=== PATIENT | male | born 1955 | race Caucasian/White ===

== ENCOUNTER → 2017-08-04 | Outpatient (CLI) | payer BC ==
--- NOTE | 2017-08-04 08:18 | US ---
EXAMINATION TYPE: US duplex aorta DATE OF EXAM: 08/04/2017 COMPARISON: NONE CLINICAL HISTORY: Z13.6 screening for cardiovascular. Screening EXAM MEASUREMENTS: Abdominal Aorta: Proximal: 1.5 x 2.0cm Mid: 1.6 x 1.5cm Distal: 1.5 x 1.6cm Bifurcation: RT: 1.0 x 1.2cm LT: 1.1 x 0.9cm No evidence of AAA at this time. Calcifications noted throughout IMPRESSION: Mild calcific atheromatous plaquing of the abdominal aorta without sonographic evidence o f abdominal aortic aneurysm.
== END | disposition home or self-care (01) ==
LOC: RADUSWWP 06:48
PROVIDERS: ATTEND Internal Medicine
DX: Z13.6 Encounter for screening for cardiovascular disorders (principal); I70.0 Atherosclerosis of aorta
CPT/HCPCS: 93979

== ENCOUNTER → 2020-08-09 | Outpatient (CLI) | payer MEDICARE ==
--- NOTE | 2020-08-09 10:53 | US ---
EXAMINATION TYPE: US venous doppler duplex LE RT DATE OF EXAM: 08/09/2020 10:35 AM COMPARISON: NONE CLINICAL HISTORY: M79.604 Pain in right leg. Right leg pain. No redness. No swelling. SIDE PERFORMED: Right TECHNIQUE: The lower extremity deep venous system is examined utilizing real time linear array sonog hamida with graded compression, doppler sonography and color-flow sonography. VESSELS IMAGED: Common Femoral Vein Deep Femoral Vein Greater Saphenous Vein * Femoral Vein Popliteal Vein Small Saphenous Vein * Proximal Calf Veins (* superficial vessels) Right Leg: Negative for DVT IMPRESSION: No evidence for DVT at this time.
== END | disposition home or self-care (01) ==
LOC: RADUSWWP 10:12
PROVIDERS: ATTEND Family Medicine
DX: M79.604 Pain in right leg (principal)

== ENCOUNTER → 2020-08-15 | Outpatient (CLI) | payer MEDICARE ==
--- NOTE | 2020-08-21 10:16 | P.ARTDOP ---
Arterial Doppler LOWER EXTREMITY ARTERIAL DOPPLER: DATE OF SERVICE: 08/15/2020 Reason for study: Recent onset right leg pain. Doppler waveforms: Atypical at the right femoral and monophasic below. Multiphasic throughout on the left with good toe waveforms.. Pulse volume recording: []. Pressure gradients: Above the thigh on the right. Ankle-brachial indices: 0.22 on the right and 0.98 on the left. Toe brachial indices: [] on the right, 0.71 on the left Impression: Severe right femoral popliteal disease with probable iliac component. The left is normal. Recommend vascular specialty consultation.
== END | disposition home or self-care (01) ==
LOC: RADUSWWP 13:19
PROVIDERS: ATTEND Family Medicine
DX: M79.604 Pain in right leg (principal)
CPT/HCPCS: 93923

== ENCOUNTER → 2020-08-22 | Outpatient (CLI) | payer MEDICARE ==
[2020-08-22 15:18] LABS: Basophils # (A) 0.1 k/uL (0-0.2); Basophils % (A) 1 %; Eosinophils # (A) 0.3 k/uL (0-0.7); Eosinophils % (A) 3 %; HCT 49.2 % (39.0-53.0); HGB 15.8 gm/dL (13.0-17.5); Lymphocytes # (A) 3.3 k/uL (1.0-4.8); Lymphocytes % (A) 30 %; MCH 27.1 pg (25.0-35.0); MCHC 32.2 g/dL (31.0-37.0); MCV 84.1 fL (80.0-100.0); Monocytes # (A) 0.6 k/uL (0-1.0); Monocytes % (A) 6 %; Neutrophils # (A) 6.6 k/uL (1.3-7.7); Neutrophils % (A) 60 %; Platelet Count 226 k/uL (150-450); RBC 5.85 m/uL (4.30-5.90); RDW 13.5 % (11.5-15.5); WBC 11.1 k/uL (3.8-10.6)
[2020-08-22 15:27] LABS: Potassium 5.2 mmol/L (3.5-5.1)
== END | disposition home or self-care (01) ==
LOC: LABPAT 13:48
PROVIDERS: ATTEND Surgery
DX: Z01.812 Encounter for preprocedural laboratory examination (principal); I73.9 Peripheral vascular disease, unspecified
CPT/HCPCS: 36415; 80051; 82565; 84520; 85025

== ENCOUNTER 2021-01-28 06:26 | Day surgery (SDC) | payer MEDICARE ==
[2021-01-24 15:02] VITALS: BMI 26.5
[~2021-01-28 06:26] MED LIST: SODIUM CHLORIDE 0.9% 1,000 ML in EMPTY BAG 1 BAG IV ONE
[2021-01-28] MEDS ORDERED: SODIUM CHLORIDE 0.9% 1,000 ML IV ONE (06:39)
[2021-01-28 06:48] VITALS: TEMP 98.7
[2021-01-28 06:53] LABS: Glucose,Whole Blood 105 mg/dL (75-99)
[2021-01-28 07:16] LABS: Basophils # (A) 0.1 k/uL (0-0.2); Basophils % (A) 1 %; Eosinophils % (A) 0 %; HCT 43.1 % (39.0-53.0); HGB 14.1 gm/dL (13.0-17.5); Lymphocytes # (A) 4.1 k/uL (1.0-4.8); Lymphocytes % (A) 31 %; MCH 26.6 pg (25.0-35.0); MCHC 32.6 g/dL (31.0-37.0); MCV 81.7 fL (80.0-100.0); Mean Platelet Volume 8.3; Monocytes # (A) 0.8 k/uL (0-1.0); Monocytes % (A) 6 %; Neutrophils % (A) 60 %; Platelet Count 223 k/uL (150-450); RBC 5.28 m/uL (4.30-5.90); RDW 14.7 % (11.5-15.5); WBC 13.2 k/uL (3.8-10.6)
[2021-01-28 07:33] LABS: Calcium 9.7 mg/dL (8.4-10.2); Potassium 4.7 mmol/L (3.5-5.1)
[2021-01-28] MEDS ORDERED: LIDOCAINE 1% INJ 10MG/ML (20 ML MDV) SQ ONE (07:58)
[2021-01-28] MEDS ORDERED: fentaNYL (PF) 50 MCG/ML 2 ML AMP ONE (07:58)
[2021-01-28] MEDS ORDERED: MIDAZOLAM 2 MG/2 ML VIAL IV ONE (08:01)
[2021-01-28] MEDS ORDERED: fentaNYL (PF) 50 MCG/ML 2 ML AMP IV ONE (08:01)
[2021-01-28] MEDS ORDERED: HEPARIN SODIUM 1,000 UN/ML (10ML VL) ONE (08:25)
[2021-01-28] MEDS ORDERED: HEPARIN SODIUM 1,000 UN/ML (10ML VL) IV ONE (08:27)
[2021-01-28] MEDS ORDERED: IOPAMIDOL-250 100ML BTL INTRAARTER ONE ×3 (09:03→09:05)
[2021-01-28] MEDS ORDERED: CLOPIDOGREL 75 MG TAB ONE (09:12)
[2021-01-28] MEDS ORDERED: CLOPIDOGREL 75 MG TAB PO ONE (09:15)
--- NOTE | 2021-01-28 09:48 | P.OP ---
Description of Procedure: Preoperative diagnosis: Critical limb ischemia right lower extremity, Hanson classification 5 Postop diagnosis: Critical limb ischemia right lower extremity, Hanson classification 5, right SFA occlusion, right tibioperoneal trunk occlusion with two-vessel runoff to the ankle Procedure: Aortogram with right lower extremity selective angiogram 3rd order via left common femoral artery ultrasound-guided access. Percutaneous transluminal balloon angioplasty of the right superficial femoral artery. Percutaneous stenting of the right superficial femoral artery 2 with a 6 x 140 mm Zilver PTX Surgeon: Tamar Anesthesia: Moderate sedation times 78 minutes Estimated blood loss: 5 mL Complications: None Condition: Stable Findings: Right common iliac artery stents are widely patent without any significant stenosis. Right femoral endarterectomy site is patent as well as the profundus femoris artery. There is greater than 90% stenosis of the takeoff of the SFA with occlusion noted just after with reconstitution of the above-knee popliteal artery. The right tibioperoneal trunk is also occluded with reconstitution of the peroneal and anterior tibial artery. Posterior tibial artery is occluded on the right. Operative narrative: After written informed consent was obtained the patient all risks benefits competitions were described the patient is brought to the [facility] and laid in a supine position. The area of the left groin was prepped and draped in the usual sterile fashion. Local anesthesia with moderate sedation was performed with continuous pulse ox monitoring and EKG monitoring. Utilizing ultrasound the left common femoral artery was visualized and shown to be patent without any significant plaque. Utilizing a multipurpose needle under ultrasound guidance the artery was accessed. Guidewire was placed followed by 5F sheath. 035 Glidewire was then placed into the aorta followed by a RBI cristian ter and the right common iliac artery was accessed. Selective angiogram was then obtained of the right lower extremity demonstrating occlusion of the SFA just after the takeoff. 035 Glidewire was then placed into the superficial femoral artery across the lesion followed by an angled glide catheter. Once across the lesion selective angiogram of the distal popliteal demonstrated good intraluminal access. Selective angiogram below the knee demonstrates occlusion of the tibioperoneal trunk as well as two-vessel runoff to the ankle with slow flow to the toes. Patient was then administered heparin and both 35 Glidewire advantage was placed through the angled glide catheter and the sheath was upsized to a 6-Afghan RAABE sheath placed above the common femoral on the right. Balloon angioplasty was then performed of the right superficial femoral artery with a ever-cross 5 x 150mm. Into gram was then obtained demonstrating some dissection within the previous occlusion and therefore a silver PTX stent 2 was placed across the lesion. Two 6 x 140 mm Zilver PTX were then placed across the lesion in the SFA. In-stent balloon angioplasty was then performed with the 5 x 150mm balloon. All guidewires and catheters were then removed and a 7-Afghan sheath was replaced with a short 7-Afghan sheath and vascular closure was placed with Vascade closure device. The patient all procedure well and was sent to PACU for recovery. Disposition: Patient does have an occlusion of the tibioperoneal trunk with reconstitution below the knee with two-vessel runoff to the ankle. This should help with his pain and healing. If this does not then he would require a femoral to below knee tibial artery bypass. He will follow-up in 2 weeks.
--- NOTE | 2021-01-28 11:19 | IR ---
Fluoroscopy HISTORY: Peripheral vascular occlusive disease 14.1 minutes fluoroscopy time supplied to the referring clinician. 582 intraoperative C-arm images d ocument the procedure. See dictated report from vascular surgery.
[2021-01-28 14:06] VITALS: BP 165/75; PULSE 98; RESP 18
== END 2021-01-28 14:11 | disposition home or self-care (01) ==
LOC: CATHCVL 06:26
PROVIDERS: ATTEND Surgery
DX: I70.229 Atherosclerosis of native arteries of extremities with rest pain, unspecified extremity (principal); Z20.822 Contact with and (suspected) exposure to COVID-19
CPT/HCPCS: 37226; 75710; 80048; 85025; 87635; C1894 ×3; C1769 ×4; C1725; C1874; C1760; J2250; J2001; J3010; J1644; Q9966

== ENCOUNTER → 2022-08-06 | Outpatient (CLI) | payer MEDICARE ==
--- NOTE | 2022-08-07 09:23 | CT ---
EXAMINATION TYPE: CT angio abd aorta w/Runoff DATE OF EXAM: 08/06/2022 5:30 PM COMPARISON: 05/30/2010 HISTORY: Pain bilateral legs, more pain left leg CT DLP: 2277.0 mGycm Automated exposure control for dose reduction was used. TECHNIQUE: Performed with IV Contrast, patient injected with 80 cc mL of Isovue 370. . FINDINGS: Lungs: Lung bases are clear. Degree of underlying COPD suspected. ABDOMEN: Postcholecystectomy clips are seen. Thickening of the gastric wall which likely relate to in complete distention correlate clinically. Adrenal glands of normal morphology. There are bilateral re nal lesions majority appear to represent simple cysts however there is a 2.5 cm right renal lesion wh ich measures 30 Hounsfield units and additional workup including MRI recommended. Spleen homogeneous. Pancreas normal. Bowel gas pattern nonspecific with no obstruction. Appendix norm al. Diverticulosis of the colon. Bladder normal. Prostate prominent with calcifications correlate wit h PSA. There is hypertrophic and degenerative changes spine. Retrolisthesis of L3 relative to L4 with multilevel facet arthropathy. Bilateral arthropathy noted VASCULATURE: The abdominal aorta is of normal caliber with mild/moderate diffuse atherosclerotic calle ges including atherosclerotic changes at the origins of the celiac axis, SMA and bilateral renal mohamud carri. Suspect right-sided renal artery stenosis near its origin. Right lower extremity: common iliac demonstrates mild diffuse atherosclerotic change. Right iliac artery stent appears to be patent. There is approximate 50% stenosis just proximal to the origin of the stent. Common femoral artery is somewhat diminutive but patent. There appears to be a stent originating near the origin of the common femoral artery extending throughout the superficial femoral artery to the l evel of the adductor canal. Artery is diminutive beyond this level with limited enhancement. There ap pears to be an occlusion of the popliteal artery. Segments of the trifurcation vessels are seen dista lly to be opacified but are markedly diminutive. Left lower extremity: Left common iliac artery there is mild to moderate diffuse disease with a more focal greater than 70% stenosis of the distal margin of the left external iliac artery best seen on image 155. There is dim inutive caliber to the common femoral and deep femoral arteries which appear to be patent. There is a critical (severe stenosis at the origin of the common femoral artery axial image 193. Greater than 5 0% stenosis of the deep femoral artery proximally. SFAs diminutive in size demonstrates multifocal mi ld to moderate atherosclerotic plaque with a more significant stenosis proximally. There is diminutiv e popliteal artery appears to be patent. Assessment trifurcation vasculature is limited due to phase of imaging and lack of significant enhancement IMPRESSION: 1. Right iliac and femoral stents are patent. No significant stenosis. 2. Severe stenosis distal left external iliac artery and proximal left common femoral artery as discu ssed above estimated to be greater than 80%. 3. Limited assessment of the popliteal artery and trifurcation vasculature due to limited\suboptimal enhancement. 4. Suspect right-sided renal artery stenosis measuring greater than 70%. 5. Multifocal left SFA's disease with at least two areas of suspected 50-70% stenosis. 6. indeterminate right sided renal lesion recommend MRI of the kidney.
== END | disposition home or self-care (01) ==
LOC: RADCTMAIN 13:47
PROVIDERS: ATTEND Surgery
DX: I70.213 Atherosclerosis of native arteries of extremities with intermittent claudication, bilateral legs (principal)
CPT/HCPCS: 82565; 84520; 75635; 36415; Q9967

== ENCOUNTER → 2022-09-19 | Outpatient (CLI) | payer MEDICARE ==
--- NOTE | 2022-09-20 10:05 | MR ---
EXAMINATION TYPE: MR kidney wo/w con DATE OF EXAM: 09/19/2022 COMPARISON: CT scan 08/06/2022 HISTORY: Kidney disorder CONTRAST: Standard multiplanar, multisequence MRI departmental protocol images were obtained without contrast a nd with 9 mL intravenous Gadavist gadolinium contrast. FINDINGS: The right kidney measures 11.5 cm in craniocaudal dimension while the left kidney measures 11.6 cm. T here are multiple right-sided simple appearing renal cysts noted. The largest is seen within the mid pole measuring 3.5 cm second 2 cm simple cyst lower pole right kidney. There are additional subcentim eter cysts noted. Solid renal mass is not evident. The left kidney also demonstrates multiple cysts i n the mid pole there is a 3.9 cm cyst. 2 adjacent cysts are noted within the mid to upper pole measur ing 2.2 and 1.8 cm respectively. No solid left renal mass is detected. I do not see evidence for hydr onephrosis. No evidence for nephrolithiasis. There is mild hepatomegaly and hepatic steatosis. No obvious hepatic lesion is present. The gallbladd er is surgically absent. Pancreas spleen and adrenal glands are grossly unremarkable. Thoracic aorta is nonaneurysmal and demonstrates atheromatous change. IMPRESSION: Simple renal cysts noted bilaterally without suspicious lesion or solid mass.
== END | disposition home or self-care (01) ==
LOC: RADMRIMAIN 11:41
PROVIDERS: ATTEND Family Medicine
DX: N28.1 Cyst of kidney, acquired (principal)
CPT/HCPCS: 74183; A9585

== ENCOUNTER 2022-10-13 16:57 | Emergency (ER) | payer MEDICARE ==
[2022-10-13 17:13] VITALS: TEMP 99.4
--- NOTE | 2022-10-13 17:47 | ED ---
General Adult HPI - General Chief complaint: Recheck/Abnormal Lab/Rx Stated complaint: cough Time Seen by Provider: 10/13/22 17:21 Source: patient, family, RN notes reviewed Mode of arrival: ambulatory Limitations: no limitations - History of Present Illness Initial comments: Patient is a pleasant 67year-old male presenting to the emergency department w ith concern with cough. Onset of symptoms was a month ago, worse the past week. Patient occasionally has some streaks of blood with his cough. Patient denies dyspnea. Patient does have some fatigue with exertion. Patient is having some leg swelling. No calf pain. No history of similar symptoms previously. Patient did have blood work recently showing some anemia. - Related Data Home Medications Medication Instructions Recorded Confirmed Aspirin 81 mg PO DAILY 01/24/21 01/28/21 Cholecalciferol [Vitamin D3 (25 100 mcg PO DAILY 01/24/21 01/28/21 Mcg = 1000 Iu)] Insulin Glargine [Lantus Vial] 24 unit SQ QAM 01/24/21 01/28/21 Liraglutide [Victoza 3-Matt] 1.8 mg SQ QAM 01/24/21 01/28/21 Losartan [Cozaar] 25 mg PO DAILY 01/24/21 01/28/21 Metoprolol Tartrate 25 mg PO HS 01/24/21 01/28/21 Nitroglycerin 0.4 mg SUBLINGUAL Q5M PRN 01/24/21 01/24/21 Omeprazole 20 mg PO BID 01/24/21 01/28/21 Pravastatin Sodium [Pravachol] 40 mg PO HS 01/24/21 01/28/21 Umeclidinium Henderson [Incruse 62.5 mcg INHALATION DAILY 01/24/21 01/28/21 Ellipta] Vit C/E/Zn/Coppr/Lutein/Zeaxan 1 each PO HS 01/24/21 01/28/21 [Preservision Areds 2 Softgel] metFORMIN HCL 1,000 mg PO BID 01/24/21 01/28/21 Clopidogrel [Plavix] 75 mg PO DAILY 01/28/21 01/28/21 Previous Rx's Medication Instructions Recorded Azithromycin [Zithromax Z Pack] 250 mg PO DAILY #6 tab 10/13/22 Magnesium Oxide [Magnesium] 500 mg PO BID #14 cap 10/13/22 Allergies Allergy/AdvReac Type Severity Reaction Status Date / Time No Known Allergies Allergy Verified 10/13/22 17:13 Review of Systems ROS Statement: Those systems with pertinent positive or pertinent negative responses have been documented in the HPI. ROS Other: All systems not noted in ROS Statement are negative. Constitutional: Denies: fever ENT: Denies: ear pain Respiratory: Reports: as per HPI, cough, hemoptysis Cardiovascular: Reports: edema. Denies: chest pain Endocrine: Denies: fatigue Gastrointestinal: Denies: abdominal pain Genitourinary: Denies: dysuria Musculoskeletal: Denies: back pain Skin: Denies: rash Neurological: Denies: weakness Past Medical History Past Medical History: Diabetes Mellitus, GERD/Reflux, Hyperlipidemia, Hypertension, Osteoarthritis (OA), Vascular Disorder Additional Past Medical History / Comment(s): "Back of heart , no treatment needed right now." "Having trouble with walking long distances right now, will u se wheelchair if too far." History of Any Multi-Drug Resistant Organisms: None Reported Past Surgical History: Cholecystectomy Additional Past Surgical History / Comment(s): Procedures on right leg for vascular disorder, 2 stents placed, bilateral cataracts removed. Past Anesthesia/Blood Transfusion Reactions: No Reported Reaction Past Psychological History: No Psychological Hx Reported Smoking Status: Former smoker Past Alcohol Use History: None Reported Past Drug Use History: None Reported - Past Family History Mother Family Medical History: Cancer Additional Family Medical History / Comment(s): Breast cancer. Father Family Medical History: Cancer Additional Family Medical History / Comment(s): Prostate cancer. General Exam Limitations: no limitations General appearance: alert, in no apparent distress Head exam: Present: normocephalic Eye exam: Present: normal appearance ENT exam: Present: normal oropharynx Neck exam: Present: normal inspection Respiratory exam: Present: rhonchi Cardiovascular Exam: Present: tachycardia, normal heart sounds GI/Abdominal exam: Present: soft. Absent: tenderness Extremities exam: Present: pedal edema (+1 bilateral). Absent: calf tenderness Neurological exam: Present: alert Psychiatric exam: Present: normal affect, normal mood Skin exam: Present: normal color Course Vital Signs 10/13/22 17:07 Temperature 99.4 F Pulse Rate 109 H Respiratory 18 Rate Blood Pressure 126/70 O2 Sat by Pulse 98 Oximetry EKG Findings - EKG Results: EKG: interpreted by ERMD (Right bundle-branch block), sinus rhythm, normal axis, normal ST/T EKG shows: tachycardia Medical Decision Making - Medical Decision Making Was pt. sent in by a medical professional or institution (SUZY Uribe, DIRECTOR OF VITAL STATISTICS, urgent care, hospital, or group home...) When possible be specific @ -[No] Did you speak to anyone other than the patient for history (EMS, parent, family, police, friend...)? What history was obtained from this source @ - is present and helps provide history including concerns with chest x- ray Did you review nursing and triage notes (agree or disagree)? Why? @ -[I reviewed and agree with nursing and triage notes] Were old charts reviewed (outside hosp., previous admission, EMS record, old EKG, old radiological studies, urgent care reports/EKG's, group home records)? Report findings @ -Reviewed chest x-ray with left upper lobe opacity from outpatient facility Differential Diagnosis (chest pain, altered mental status, abdominal pain women, abdominal pain men, vaginal bleeding, weakness, fever, dyspnea, syncope, headache, dizziness, GI bleed, back pain, seizure, CVA, palpatations, mental health, musculoskeletal)? @ -Differential Dyspnea: Coronary syndrome, arrhythmia, tamponade, asthma, COPD, pulmonary embolism, pneumonia, pneumothorax, pulmonary effusion, anaphylaxis, diabetic ketoacidosis, flailed chest, pulmonary contusion, diaphragmatic rupture, anemia, neuromuscular, this is not meant to be an all-inclusive list. EKG interpreted by me (3pts min.). @ -[As above] X-rays interpreted by me (1pt min.). @ -[None done] CT interpreted by me (1pt min.). @ -Computed tomography scan shows left upper lobe opacity U/S interpreted by me (1pt. min.). @ -[None done] What testing was considered but not performed or refused? (CT, X-rays, U/S, labs)? Why? @ -[None] What meds were considered but not given or refused? Why? @ -Patient advised further medication including magnesium and antibiotics however refuses Did you discuss the management of the patient with other professionals (professionals i.e. SUZY Uribe, DIRECTOR OF VITAL STATISTICS, lab, RT, psych nurse, social sciences department chair, web development instructor, teacher, water resources technical officer, disability case manager)? Give summary @ -[No] Was smoking cessation discussed for >3mins.? @ -[No] Was critical care preformed (if so, how long)? @ -[No] Were there social determinants of health that impacted care today? How? (Homelessness, low income, unemployed, alcoholism, drug addiction, transportation, low edu. Level, literacy, decrease access to med. care, snf, rehab)? @ -[No] Was there de-escalation of care discussed even if they declined (Discuss DNR or withdrawal of care, Hospice)? DNR status @ -Patient refuses admission. What co-morbidities impacted this encounter? (DM, HTN, Smoking, COPD, CAD, Cancer, CVA, ARF, Chemo, Hep., AIDS, mental health diagnosis, sleep apnea, morbid obesity)? @ -[None] Was patient admitted / discharged? Hospital course, mention meds given and route, prescriptions, significant lab abnormalities, going to OR and other pertinent info. @ -Patient recommended admission secondary to large and persistent pneumonia as well as significant hypomagnesemia. Patient is made aware of risks involved with going home with these diagnoses however still refuses admission. Patient does demonstrate medical decision making. Family is present. Patient will leave AGAINST MEDICAL ADVICE. Patient will still be prescribed antibiotics and magnesium Undiagnosed new problem with uncertain prognosis? @ -[No] Drug Therapy requiring intensive monitoring for toxicity (Heparin, Nitro, Insulin, Cardizem)? @ -[No] Were any procedures done? @ -[No] Diagnosis/symptom? @ -Monier, hypomagnesemia Acute, or Chronic, or Acute on Chronic? @ -Acute, acute Uncomplicated (without systemic symptoms) or Complicated (systemic symptoms)? @ -[default] Side effects of treatment? @ -[No] Exacerbation, Progression, or Severe Exacerbation? @ -[No] Poses a threat to life or bodily function? How? (Chest pain, USA, PR, pneumonia, PE, COPD, DKA, ARF, appy, cholecystitis, CVA, Diverticulitis, Homicidal, Suicidal, threat to staff... and all critical care pts) @ -[No] - Lab Data Result diagrams: 10/13/22 18:07 10/13/22 18:07 Lab Results 07/18/23 07/18/23 07/18/23 Range/Units 18:07 18:07 18:07 WBC 10.3 (3.8-10.6) k/uL RBC 3.98 L (4.30-5.90) m/uL Hgb 8.9 L (13.0-17.5) gm/dL Hct 30.7 L (39.0-53.0) % MCV 77.2 L (80.0-100.0) fL MCH 22.4 L (25.0-35.0) pg MCHC 29.0 L (31.0-37.0) g/dL RDW 24.8 H (11.5-15.5) % Plt Count 287 (150-450) k/uL MPV 11.4 Neutrophils % 74 % Lymphocytes % 14 % Monocytes % 8 % Eosinophils % 1 % Basophils % 0 % Neutrophils # 7.6 (1.3-7.7) k/uL Lymphocytes # 1.5 (1.0-4.8) k/uL Monocytes # 0.8 (0-1.0) k/uL Eosinophils # 0.1 (0-0.7) k/uL Basophils # 0.0 (0-0.2) k/uL Hypochromasia Marked Poikilocytosis Slight Anisocytosis Marked Microcytosis Marked PT 13.4 H (9.0-12.0) sec INR 1.3 H (<1.2) APTT 28.6 (22.0-30.0) sec D-Dimer 0.79 H (<0.60) mg/L FEU Sodium 135 L (137-145) mmol/L Potassium 5.0 (3.5-5.1) mmol/L Chloride 103 (98-107) mmol/L Carbon Dioxide 23 (22-30) mmol/L Anion Gap 9 mmol/L BUN 17 (9-20) mg/dL Creatinine 0.95 (0.66-1.25) mg/dL Est GFR (CKD-EPI)AfAm >90 (>60 ml/min/1.73 sqM) Est GFR (CKD-EPI)NonAf 82 (>60 ml/min/1.73 sqM) Glucose 189 H (74-99) mg/dL Plasma Lactic Acid Nicko (0.7-2.0) mmol/L Calcium 8.4 (8.4-10.2) mg/dL Magnesium 0.4 L* (1.6-2.3) mg/dL Total Bilirubin 0.7 (0.2-1.3) mg/dL AST 31 (17-59) U/L ALT 24 (4-49) U/L Alkaline Phosphatase 148 H (38-126) U/L Troponin I (0.000-0.034) ng/mL NT-Pro-B Natriuret Pep pg/mL Total Protein 6.4 (6.3-8.2) g/dL Albumin 3.1 L (3.5-5.0) g/dL Coronavirus (PCR) (Not Detectd) 10/13/22 10/13/22 10/13/22 Range/Units 18:07 18:07 18:07 WBC (3.8-10.6) k/uL RBC (4.30-5.90) m/uL Hgb (13.0-17.5) gm/dL Hct (39.0-53.0) % MCV (80.0-100.0) fL MCH (25.0-35.0) pg MCHC (31.0-37.0) g/dL RDW (11.5-15.5) % Plt Count (150-450) k/uL MPV Neutrophils % % Lymphocytes % % Monocytes % % Eosinophils % % Basophils % % Neutrophils # (1.3-7.7) k/uL Lymphocytes # (1.0-4.8) k/uL Monocytes # (0-1.0) k/uL Eosinophils # (0-0.7) k/uL Basophils # (0-0.2) k/uL Hypochromasia Poikilocytosis Anisocytosis Microcytosis PT (9.0-12.0) sec INR (<1.2) APTT (22.0-30.0) sec D-Dimer (<0.60) mg/L FEU Sodium (137-145) mmol/L Potassium (3.5-5.1) mmol/L Chloride (98-107) mmol/L Carbon Dioxide (22-30) mmol/L Anion Gap mmol/L BUN (9-20) mg/dL Creatinine (0.66-1.25) mg/dL Est GFR (CKD-EPI)AfAm (>60 ml/min/1.73 sqM) Est GFR (CKD-EPI)NonAf (>60 ml/min/1.73 sqM) Glucose (74-99) mg/dL Plasma Lactic Acid Nicko 1.5 (0.7-2.0) mmol/L Calcium (8.4-10.2) mg/dL Magnesium (1.6-2.3) mg/dL Total Bilirubin (0.2-1.3) mg/dL AST (17-59) U/L ALT (4-49) U/L Alkaline Phosphatase (38-126) U/L Troponin I 0.016 (0.000-0.034) ng/mL NT-Pro-B Natriuret Pep 8630 pg/mL Total Protein (6.3-8.2) g/dL Albumin (3.5-5.0) g/dL Coronavirus (PCR) (Not Detectd) 10/13/22 Range/Units 18:07 WBC (3.8-10.6) k/uL RBC (4.30-5.90) m/uL Hgb (13.0-17.5) gm/dL Hct (39.0-53.0) % MCV (80.0-100.0) fL MCH (25.0-35.0) pg MCHC (31.0-37.0) g/dL RDW (11.5-15.5) % Plt Count (150-450) k/uL MPV Neutrophils % % Lymphocytes % % Monocytes % % Eosinophils % % Basophils % % Neutrophils # (1.3-7.7) k/uL Lymphocytes # (1.0-4.8) k/uL Monocytes # (0-1.0) k/uL Eosinophils # (0-0.7) k/uL Basophils # (0-0.2) k/uL Hypochromasia Poikilocytosis Anisocytosis Microcytosis PT (9.0-12.0) sec INR (<1.2) APTT (22.0-30.0) sec D-Dimer (<0.60) mg/L FEU Sodium (137-145) mmol/L Potassium (3.5-5.1) mmol/L Chloride (98-107) mmol/L Carbon Dioxide (22-30) mmol/L Anion Gap mmol/L BUN (9-20) mg/dL Creatinine (0.66-1.25) mg/dL Est GFR (CKD-EPI)AfAm (>60 ml/min/1.73 sqM) Est GFR (CKD-EPI)NonAf (>60 ml/min/1.73 sqM) Glucose (74-99) mg/dL Plasma Lactic Acid Nicko (0.7-2.0) mmol/L Calcium (8.4-10.2) mg/dL Magnesium (1.6-2.3) mg/dL Total Bilirubin (0.2-1.3) mg/dL AST (17-59) U/L ALT (4-49) U/L Alkaline Phosphatase (38-126) U/L Troponin I (0.000-0.034) ng/mL NT-Pro-B Natriuret Pep pg/mL Total Protein (6.3-8.2) g/dL Albumin (3.5-5.0) g/dL Coronavirus (PCR) Not Detected (Not Detectd) Disposition Clinical Impression: Pneumonia, Hypomagnesemia Disposition: LEFT AGAINST MEDICAL ADVICE Instructions (If sedation given, give patient instructions): Bacterial Pneumonia (ED), Hypomagnesemia (ED) Additional Instructions: Please do follow-up with your primary care physician tomorrow. Prescriptions sent to pharmacy. Please start prescriptions as soon as possible. Return for difficulty breathing, palpitations and weakness, heart racing, worsening symptoms or any other concerns. You're leaving AGAINST MEDICAL ADVICE. You will need to have your magnesium level rechecked in the next couple days. You will need to have repeat chest x-ray in the near future to ensure no underlying mass or other problems. Prescriptions: Magnesium Oxide [Magnesium] 500 mg PO BID #14 cap Azithromycin [Zithromax Z Pack] 250 mg PO DAILY #6 tab Is patient prescribed a controlled substance at d/c from ED?: No Referrals: Bob Tejeda MD [Primary Care Provider] - 1-2 days Time of Disposition: 21:12
[2022-10-13] MEDS ORDERED: ACETAMINOPHEN TAB 500 MG TAB PO STA (17:48)
[2022-10-13 18:55] LABS: Anisocytosis Marked; Basophils % (A) 0 %; Eosinophils # (A) 0.1 k/uL (0-0.7); Eosinophils % (A) 1 %; HCT 30.7 % (39.0-53.0); HGB 8.9 gm/dL (13.0-17.5); Hypochromasia Marked; Lymphocytes # (A) 1.5 k/uL (1.0-4.8); Lymphocytes % (A) 14 %; MCH 22.4 pg (25.0-35.0); MCV 77.2 fL (80.0-100.0); Mean Platelet Volume 11.4; Microcytosis Marked; Monocytes # (A) 0.8 k/uL (0-1.0); Monocytes % (A) 8 %; Neutrophils # (A) 7.6 k/uL (1.3-7.7); Neutrophils % (A) 74 %; Platelet Count 287 k/uL (150-450); Poikilocytosis Slight; RBC 3.98 m/uL (4.30-5.90); RDW 24.8 % (11.5-15.5); WBC 10.3 k/uL (3.8-10.6)
[2022-10-13 19:05] LABS: INR 1.3 (<1.2); Partial Thromboplastin Time 28.6 sec (22.0-30.0); Prothrombin Time 13.4 sec (9.0-12.0)
[2022-10-13 19:14] LABS: ALT 24 U/L (4-49); AST 31 U/L (17-59); African American GFR (CKD) >90 (>60 ml/min/1.73 sqM); Albumin 3.1 g/dL (3.5-5.0); Alkaline Phosphatase 148 U/L (38-126); Anion Gap 9 mmol/L; Blood Urea Nitrogen 17 mg/dL (9-20); Calcium 8.4 mg/dL (8.4-10.2); Carbon Dioxide 23 mmol/L (22-30); Chloride 103 mmol/L (98-107); Glucose 189 mg/dL (74-99); Non-African American GFR(CKD) 82 (>60 ml/min/1.73 sqM); Sodium 135 mmol/L (137-145); Total Bilirubin 0.7 mg/dL (0.2-1.3); Total Protein 6.4 g/dL (6.3-8.2)
[2022-10-13 19:39] LABS: Magnesium 0.4 mg/dL (1.6-2.3)
[2022-10-13] MEDS ORDERED: MAGNESIUM OXIDE 400 MG TAB PO STA (19:51)
[2022-10-13] MEDS ORDERED: MAGNESIUM SULFATE-D5W PMX 1 GM in DEXTROSE/WATER 1 100ML.BAG IVPB ONE (19:51)
--- NOTE | 2022-10-13 20:37 | US ---
EXAMINATION TYPE: US venous doppler duplex LE BI DATE OF EXAM: 10/13/2022 7:09 PM COMPARISON: NONE CLINICAL INDICATION: Male, 67 years old with history of pain,edema; edema in left leg SIDE PERFORMED: Bilateral TECHNIQUE: The lower extremity deep venous system is examined utilizing real time linear array sonog hamida with graded compression, doppler sonography and color-flow sonography. VESSELS IMAGED: Common Femoral Vein Deep Femoral Vein Greater Saphenous Vein * Femoral Vein Popliteal Vein Small Saphenous Vein * Proximal Calf Veins (* superficial vessels) Right Leg: Negative for DVT Left Leg: Negative for DVT Grayscale, color doppler, spectral doppler imaging performed of the deep veins of the lower extremiti es. There is normal flow, compressibility, vascular waveforms. IMPRESSION: No evidence for deep vein thrombosis bilaterally.
--- NOTE | 2022-10-13 20:58 | CT ---
EXAMINATION TYPE: CT angio chest CT DLP: 389.2 mGycm, Automated exposure control for dose reduction was used. DATE OF EXAM: 10/13/2022 8:14 PM COMPARISON: CT abdomen 08/06/2022, chest x-ray 10/13/2022 CLINICAL INDICATION:Male, 67 years old with history of dyspnea; elevated d-dimer TECHNIQUE/CONTRAST: CTA scan of the thorax is performed with IV Contrast, patient injected with 100 mL of Isovue 370, pul monary embolism protocol. MIP images are created and reviewed. FINDINGS: Pulmonary Artery: There is no evidence for a filling defect within the pulmonary vasculature to sugge st acute pulmonary embolism. The pulmonary artery is of normal size. Lungs/Pleura: Masslike consolidation within the left upper lobe measures 5.5 x 6.7 cm. Smaller simila r-appearing consolidation is noted anteriorly within the left upper lobe (series 403, image 162). Alex ateral centrilobular emphysematous changes. No pneumothorax or sizable pleural effusion. Airway: Large airways are patent. Heart: Heart is within normal limits for size.. Vasculature: Mild atherosclerotic calcifications are present throughout the aorta and its branches. Mediastinum: Few prominent mediastinal lymph nodes largest of which include a millimeter aortopulmona ry lymph node. Multiple prominent to enlarged left perihilar lymph nodes. Musculoskeletal: Sternotomy wires. Minimal discogenic changes of the thoracic spine. Soft Tissues: Unremarkable. Lower neck: No significant findings. Upper Abdomen: Left renal cyst. Colonic diverticulosis.. IMPRESSION: 1. No evidence of pulmonary embolism. 2. Left upper lobe airspace opacities including a masslike opacity measuring up to 6.7 cm. Findings a re concerning for acute infectious process such as multifocal pneumonia. However, recommend short int erval CT follow-up to ensure resolution upon completion of therapy. 3. Reactive mediastinal lymphadenopathy likely secondary to #2. 4. COPD changes.
[2022-10-13] MEDS ORDERED: AZITHROMYCIN 500 MG TAB PO STA (21:13)
[2022-10-13] MEDS ORDERED: cefTRIAXone IN SWFI 1,000 MG/10 ML SYRINGE IVP STA (21:13)
[2022-10-13 21:38] VITALS: BP 124/74; PULSE 103; RESP 20
== END 2022-10-13 21:38 | disposition left against medical advice (07) ==
LOC: EC 16:57
DX: E83.42 Hypomagnesemia (principal); J18.9 Pneumonia, unspecified organism; E78.5 Hyperlipidemia, unspecified; I10 Essential (primary) hypertension; K21.9 Gastro-esophageal reflux disease without esophagitis; M19.90 Unspecified osteoarthritis, unspecified site; E11.9 Type 2 diabetes mellitus without complications; Z87.891 Personal history of nicotine dependence; Z79.84 Long term (current) use of oral hypoglycemic drugs; Z79.82 Long term (current) use of aspirin; Z79.02 Long term (current) use of antithrombotics/antiplatelets; Z79.899 Other long term (current) drug therapy; Z79.4 Long term (current) use of insulin; Z20.822 Contact with and (suspected) exposure to COVID-19; Z53.29 Procedure and treatment not carried out because of patient's decision for other reasons
CPT/HCPCS: 36415; 93005; 85379; 83880; 80053; 83605; 83735; 84484; 85025; 85610; 85730; 87635; 93970; 71275; 99284; 96365; 96375; J0696; J3475; Q9967

== ENCOUNTER 2023-01-26 13:45 | Inpatient (IN) | payer MEDICARE ==
[2023-01-26 14:34] LABS: Anisocytosis Slight; Basophils % (A) 0 %; Eosinophils # (A) 0.1 k/uL (0-0.7); Eosinophils % (A) 2 %; HCT 26.1 % (39.0-53.0); HGB 7.3 gm/dL (13.0-17.5); Hypochromasia Marked; Lymphocytes # (A) 1.1 k/uL (1.0-4.8); Lymphocytes % (A) 15 %; MCH 19.4 pg (25.0-35.0); MCV 69.2 fL (80.0-100.0); Mean Platelet Volume 9.3; Microcytosis Marked; Monocytes # (A) 0.6 k/uL (0-1.0); Monocytes % (A) 8 %; Neutrophils % (A) 72 %; Platelet Count 166 k/uL (150-450); Poikilocytosis Slight; RBC 3.77 m/uL (4.30-5.90); RDW 18.2 % (11.5-15.5); WBC 7.1 k/uL (3.8-10.6)
--- NOTE | 2023-01-26 14:38 | ED ---
General Adult HPI - General Source: patient, RN notes reviewed Mode of arrival: ambulatory Limitations: no limitations <Jorge Aldridge - Last Filed: 01/26/23 14:37> - General Source: patient, RN notes reviewed Mode of arrival: ambulatory Limitations: no limitations <Selene Marti - Last Filed: 01/26/23 19:15> - General Chief complaint: Recheck/Abnormal Lab/Rx Stated complaint: abnormal labs Time Seen by Provider: 01/26/23 14:37 - History of Present Illness Initial comments: 67-year-old male presents emergency Department with chief complaint of abnormal labs. Patient states he was called and was told that his labs were abnormal he believes his hemoglobin. He has received a transfusion the past he does complain of feeling short of breath., States he feels very weak. (Jorge Aldridge) When I went to evaluate the patient, states that he was having blood work done due to his increasing weakness. His states that he did have a problem with low hemoglobin a few months ago, requiring a blood transfusion. He was at [facility] at that time, and exhibited the same symptoms in terms of increasing weakness. He did not have a colonoscopy or upper endoscopy and they did not determine the cause of the low hemoglobin. Patient denies any blood in his stool or dark or tarry stools. He does complain of some periumbilical abdominal pain. Also states that he has pain and swelling in his bilateral lower extremities as well as weight gain despite not eating. His also notes that he has struggled with low magnesium levels, and has since been taking magnesium 500 mg twice daily. (Selene Marti) - Related Data Home Medications Medication Instructions Recorded Confirmed Aspirin 81 mg PO HS 01/24/21 01/26/23 Cholecalciferol [Vitamin D3 (25 50 mcg PO DAILY 01/24/21 01/26/23 Mcg = 1000 Iu)] Metoprolol Tartrate 25 mg PO DAILY 01/24/21 01/26/23 Nitroglycerin 0.4 mg SL Q5M PRN 01/24/21 01/26/23 Omeprazole 20 mg PO BID 01/24/21 01/26/23 Vit C/E/Zn/Coppr/Lutein/Zeaxan 1 cap PO BID 01/24/21 01/26/23 [Preservision Areds 2 Softgel] metFORMIN HCL 1,000 mg PO BID 01/24/21 01/26/23 Clopidogrel [Plavix] 75 mg PO DAILY 01/28/21 01/26/23 Cyanocobalamin (Vitamin B-12) 2,500 mcg PO DAILY 01/26/23 01/26/23 [Vitamin B-12] Dorzolamide 2% [Trusopt 2%] 1 drop BOTH EYES BID 01/26/23 01/26/23 Fluticasone/Umeclidin/Vilanter 1 puff INHALATION RT-DAILY 01/26/23 01/26/23 [Trelegy Ellipta 100-62.5-25] Furosemide [Lasix] 20 mg PO DAILY 01/26/23 01/26/23 Insulin Glargine,Hum.rec.anlog 24 units SQ DAILY 01/26/23 01/26/23 [Lantus Solostar Pen] Magnesium Oxide [Mag-Ox] 400 mg PO DAILY 01/26/23 01/26/23 Multivit/Iron Sulf/Folic Acid 1 tab PO DAILY 01/26/23 01/26/23 [Multivitamin with Iron] Pravastatin Sodium [Pravachol] 80 mg PO HS 01/26/23 01/26/23 lisinopriL 2.5 mg PO HS 01/26/23 01/26/23 Allergies Allergy/AdvReac Type Severity Reaction Status Date / Time No Known Allergies Allergy Verified 01/26/23 18:22 Review of Systems ROS Other: All systems not noted in ROS Statement are negative. <Jorge Aldridge - Last Filed: 01/26/23 14:37> ROS Other: All systems not noted in ROS Statement are negative. <Selene Marti - Last Filed: 01/26/23 19:15> ROS Statement: Those systems with pertinent positive or pertinent negative responses have been documented in the HPI. Past Medical History Past Medical History: Diabetes Mellitus, GERD/Reflux, Hyperlipidemia, Hypertension, Osteoarthritis (OA), Vascular Disorder Additional Past Medical History / Comment(s): "Back of heart , no treatment needed right now." "Having trouble with walking long distances right now, will use wheelchair if too far." History of Any Multi-Drug Resistant Organisms: None Reported Past Surgical History: Cholecystectomy Additional Past Surgical History / Comment(s): Procedures on right leg for vascular disorder, 2 stents placed, bilateral cataracts removed. Past Anesthesia/Blood Transfusion Reactions: No Reported Reaction Past Psychological History: No Psychological Hx Reported Smoking Status: Former smoker Past Alcohol Use History: None Reported Past Drug Use History: None Reported - Past Family History Mother Family Medical History: Cancer Additional Family Medical History / Comment(s): Breast cancer. Father Family Medical History: Cancer Additional Family Medical History / Comment(s): Prostate cancer. <Jorge Aldridge - Last Filed: 01/26/23 14:37> General Exam Limitations: no limitations <Jorge Aldridge - Last Filed: 01/26/23 14:37> Limitations: no limitations General appearance: alert, in no apparent distress Head exam: Present: atraumatic, normocephalic, normal inspection Eye exam: Present: other (Periorbital discoloration) Respiratory exam: Present: normal lung sounds bilaterally. Absent: respiratory distress, wheezes, rales, rhonchi, stridor Cardiovascular Exam: Present: regular rate, normal rhythm, normal heart sounds. Absent: systolic murmur, diastolic murmur, rubs, gallop, clicks GI/Abdominal exam: Present: soft, tenderness (Periumbilical), normal bowel sounds. Absent: distended Extremities exam: Present: pedal edema Neurological exam: Present: alert, oriented X3, CN II-XII intact Psychiatric exam: Present: normal affect, normal mood <Selene Marti - Last Filed: 01/26/23 19:15> - General Exam Comments Initial Comments: Visual Physical Exam Vital signs reviewed General: Well-appearing, nontoxic, no acute distress. Head: Normocephalic, atraumatic Eyes: PERRLA, EOMI ENT: Airway patent Chest: Nonlabored breathing Skin: No visual rash, normal skin tone Neuro: Alert and oriented 3 Musculoskeletal: No gross abnormalities (Jorge Aldridge) Course Vital Signs 01/26/23 13:57 Temperature 98.3 F Pulse Rate 89 Respiratory 20 Rate Blood Pressure 105/59 O2 Sat by Pulse 99 Oximetry Medical Decision Making - Lab Data Result diagrams: 01/26/23 14:16 <Jorge Aldridge - Last Filed: 01/26/23 14:37> - Lab Data Result diagrams: 01/26/23 14:16 01/26/23 14:16 - Radiology Data Radiology results: report reviewed, image reviewed <Selene Marti - Last Filed: 01/26/23 19:15> - Medical Decision Making I completed the quick note portion of this chart signed Jorge Aldridge PA-C (Jorge Aldridge) This is a 67-year-old male who presents to the emergency department for generalized weakness and low hemoglobin levels. Was pt. sent in by a medical professional or institution? @ -His PCP Did you speak to anyone other than the patient for history? @ -No Did you review nursing and triage notes? @ -Yes, and I agree, it is accurate with regards to the patient's symptoms. Were old charts reviewed? @ -No Differential Diagnosis? @ -Differential Weakness: Hypoglycemia, shock, sepsis, hyponatremia, anemia, infection, PR, ETOH, adverse medicine reaction, overdose, stroke, this is not meant to be an all-inclusive list. EKG interpreted by me (3pts min.)? @ -EKG interpreted by me demonstrating the following: Sinus rhythm. Ventricular rate 88 bpm, MN interval 207 ms, QRS duration 148 ms, QTC 454 ms. X-rays interpreted by me (1pt min.)? @ -Chest x-ray obtained. My interpretation identifies pulmonary vascular congestion. CT interpreted by me (1pt min.)? @ -Computed tomography scan of the abdomen and pelvis obtained. My interpretation identifies abdominal ascites. U/S interpreted by me (1pt. min.)? @ -Not obtained What testing was considered but not performed? (CT, X-rays, U/S, labs)? Why? @ -None What meds were considered but not given? Why? @ -None Did you discuss the management of the patient with other professionals? @ -Yes, Dr. Sheffield, who accepts the patient for admission. Did you reconcile home meds? @ -No Was smoking cessation discussed for >3mins.? @ -No Was critical care preformed (if so, how long)? @ -No Were there social determinants of health that impacted care today? How? (Homelessness, low income, unemployed, alcoholism, drug addiction, transportation, low edu. Level, literacy, decrease access to med. care, custodial, rehab)? @ -No Was there de-escalation of care discussed even if they declined? (Discuss DNR or withdrawal of care, Hospice)? @ -No What co-morbidities impacted this encounter? (DM, HTN, Smoking, COPD, CAD, Cancer, CVA, Hep., AIDS, mental health diagnosis, sleep apnea, morbid obesity)? @ -DM, CAD, HLD, HTN Was patient admitted / discharged? @ -Admitted. Lab work obtained revealing a hemoglobin of 7.3. Magnesium critically low at 0.9. He does also appear to have a minor PAUL, however his kidneys have been worse in the past. Given the abdominal pain with weight gain, computed tomography scan of the abdomen and pelvis obtained. This revealed generalized anasarca related to third spacing and fluid overload state. He was also found to have mild to moderate abdominopelvic ascites. Chest x-ray obtained due to the pleural effusions noted on computed tomography scan as well as the patient's coughing. This demonstrated pulmonary vascular congestion. BNP is 4340, however it was twice this value 3 months ago. 4 g magnesium sulfate administered for the hypomagnesemia. Patient admitted to medicine for further management of symptomatic anemia, hypomagnesemia, and abdominal ascites. Patient refusing stool occult test at the time of admission despite my strongest recom mendations. GI is however available this week if needed. Undiagnosed new problem with uncertain prognosis? @ -None Drug Therapy requiring intensive monitoring for toxicity (Heparin, Nitro, Insulin, Cardizem)? @ -None Were any procedures done? @ -None Diagnosis/symptom? @ -Symptomatic anemia, hypomagnesemia, abdominal ascites Acute, or Chronic, or Acute on Chronic? @ -Acute Uncomplicated (without systemic symptoms) or Complicated (systemic symptoms)? @ -Uncomplicated Side effects of treatment? @ -None Exacerbation, Progression, or Severe Exacerbation] @ -Not applicable Poses a threat to life or bodily function? @ -Yes This case was discussed in detail with the attending ED physician, . Presentation, findings, and treatment plan discussed in detail as well. (Selene Marti) - Lab Data Lab Results 01/26/23 01/26/23 01/26/23 Range/Units 14:10 14:16 14:16 WBC 7.1 (3.8-10.6) k/uL RBC 3.77 L (4.30-5.90) m/uL Hgb 7.3 L (13.0-17.5) gm/dL Hct 26.1 L (39.0-53.0) % MCV 69.2 L (80.0-100.0) fL MCH 19.4 L (25.0-35.0) pg MCHC 28.0 L (31.0-37.0) g/dL RDW 18.2 H (11.5-15.5) % Plt Count 166 (150-450) k/uL MPV 9.3 Neutrophils % 72 % Lymphocytes % 15 % Monocytes % 8 % Eosinophils % 2 % Basophils % 0 % Neutrophils # 5.0 (1.3-7.7) k/uL Lymphocytes # 1.1 (1.0-4.8) k/uL Monocytes # 0.6 (0-1.0) k/uL Eosinophils # 0.1 (0-0.7) k/uL Basophils # 0.0 (0-0.2) k/uL Hypochromasia Marked Poikilocytosis Slight Anisocytosis Slight Microcytosis Marked PT 13.9 H (10.0-12.5) sec INR 1.3 H (<1.2) APTT 27.3 (22.0-30.0) sec Sodium (137-145) mmol/L Potassium (3.5-5.1) mmol/L Chloride (98-107) mmol/L Carbon Dioxide (22-30) mmol/L Anion Gap mmol/L BUN (9-20) mg/dL Creatinine (0.66-1.25) mg/dL Est GFR (CKD-EPI)AfAm (>60 ml/min/1.73 sqM) Est GFR (CKD-EPI)NonAf (>60 ml/min/1.73 sqM) Glucose (74-99) mg/dL Calcium (8.4-10.2) mg/dL Phosphorus (2.5-4.5) mg/dL Magnesium (1.6-2.3) mg/dL Total Bilirubin (0.2-1.3) mg/dL AST (17-59) U/L ALT (4-49) U/L Alkaline Phosphatase (38-126) U/L Troponin I (0.000-0.034) ng/mL NT-Pro-B Natriuret Pep pg/mL Total Protein (6.3-8.2) g/dL Albumin (3.5-5.0) g/dL Blood Type Blood Type Confirm A Positive Blood Type Recheck Bld Type Recheck Status Antibody Screen Spec Expiration Date 01/26/23 01/26/23 01/26/23 Range/Units 14:16 14:16 14:16 WBC (3.8-10.6) k/uL RBC (4.30-5.90) m/uL Hgb (13.0-17.5) gm/dL Hct (39.0-53.0) % MCV (80.0-100.0) fL MCH (25.0-35.0) pg MCHC (31.0-37.0) g/dL RDW (11.5-15.5) % Plt Count (150-450) k/uL MPV Neutrophils % % Lymphocytes % % Monocytes % % Eosinophils % % Basophils % % Neutrophils # (1.3-7.7) k/uL Lymphocytes # (1.0-4.8) k/uL Monocytes # (0-1.0) k/uL Eosinophils # (0-0.7) k/uL Basophils # (0-0.2) k/uL Hypochromasia Poikilocytosis Anisocytosis Microcytosis PT (10.0-12.5) sec INR (<1.2) APTT (22.0-30.0) sec Sodium 135 L (137-145) mmol/L Potassium 5.1 (3.5-5.1) mmol/L Chloride 104 (98-107) mmol/L Carbon Dioxide 20 L (22-30) mmol/L Anion Gap 11 mmol/L BUN 37 H (9-20) mg/dL Creatinine 1.35 H (0.66-1.25) mg/dL Est GFR (CKD-EPI)AfAm 62 (>60 ml/min/1.73 sqM) Est GFR (CKD-EPI)NonAf 54 (>60 ml/min/1.73 sqM) Glucose 171 H (74-99) mg/dL Calcium 8.4 (8.4-10.2) mg/dL Phosphorus (2.5-4.5) mg/dL Magnesium 0.9 L* (1.6-2.3) mg/dL Total Bilirubin 1.2 (0.2-1.3) mg/dL AST 45 (17-59) U/L ALT 17 (4-49) U/L Alkaline Phosphatase 104 (38-126) U/L Troponin I 0.030 (0.000-0.034) ng/mL NT-Pro-B Natriuret Pep pg/mL Total Protein 7.0 (6.3-8.2) g/dL Albumin 3.8 (3.5-5.0) g/dL Blood Type A Positive Blood Type Confirm Blood Type Recheck No Previous Record Bld Type Recheck Status CABO Indicated Antibody Screen NEGATIVE Spec Expiration Date 01/29/2023 - 231501/26/23 Range/Units 14:16 WBC (3.8-10.6) k/uL RBC (4.30-5.90) m/uL Hgb (13.0-17.5) gm/dL Hct (39.0-53.0) % MCV (80.0-100.0) fL MCH (25.0-35.0) pg MCHC (31.0-37.0) g/dL RDW (11.5-15.5) % Plt Count (150-450) k/uL MPV Neutrophils % % Lymphocytes % % Monocytes % % Eosinophils % % Basophils % % Neutrophils # (1.3-7.7) k/uL Lymphocytes # (1.0-4.8) k/uL Monocytes # (0-1.0) k/uL Eosinophils # (0-0.7) k/uL Basophils # (0-0.2) k/uL Hypochromasia Poikilocytosis Anisocytosis Microcytosis PT (10.0-12.5) sec INR (<1.2) APTT (22.0-30.0) sec Sodium (137-145) mmol/L Potassium (3.5-5.1) mmol/L Chloride (98-107) mmol/L Carbon Dioxide (22-30) mmol/L Anion Gap mmol/L BUN (9-20) mg/dL Creatinine (0.66-1.25) mg/dL Est GFR (CKD-EPI)AfAm (>60 ml/min/1.73 sqM) Est GFR (CKD-EPI)NonAf (>60 ml/min/1.73 sqM) Glucose (74-99) mg/dL Calcium (8.4-10.2) mg/dL Phosphorus 3.6 (2.5-4.5) mg/dL Magnesium (1.6-2.3) mg/dL Total Bilirubin (0.2-1.3) mg/dL AST (17-59) U/L ALT (4-49) U/L Alkaline Phosphatase (38-126) U/L Troponin I (0.000-0.034) ng/mL NT-Pro-B Natriuret Pep 4340 pg/mL Total Protein (6.3-8.2) g/dL Albumin (3.5-5.0) g/dL Blood Type Blood Type Confirm Blood Type Recheck Bld Type Recheck Status Antibody Screen Spec Expiration Date Disposition <Jorge Aldridge - Last Filed: 01/26/23 14:37> <Selene Marti - Last Filed: 01/26/23 19:15> Clinical Impression: Hypomagnesemia, Symptomatic anemia, Abdominal ascites Disposition: ADMITTED IP TO THIS HOSP
[2023-01-26 15:00] LABS: ALT 17 U/L (4-49); AST 45 U/L (17-59); African American GFR (CKD) 62 (>60 ml/min/1.73 sqM); Albumin 3.8 g/dL (3.5-5.0); Alkaline Phosphatase 104 U/L (38-126); Anion Gap 11 mmol/L; Blood Urea Nitrogen 37 mg/dL (9-20); Calcium 8.4 mg/dL (8.4-10.2); Carbon Dioxide 20 mmol/L (22-30); Chloride 104 mmol/L (98-107); Glucose 171 mg/dL (74-99); Non-African American GFR(CKD) 54 (>60 ml/min/1.73 sqM); Potassium 5.1 mmol/L (3.5-5.1); Sodium 135 mmol/L (137-145); Total Bilirubin 1.2 mg/dL (0.2-1.3)
[2023-01-26 15:01] LABS: INR 1.3 (<1.2); Partial Thromboplastin Time 27.3 sec (22.0-30.0); Prothrombin Time 13.9 sec (10.0-12.5)
[2023-01-26 15:22] LABS: Magnesium 0.9 mg/dL (1.6-2.3)
[2023-01-26] MEDS: MAGNESIUM SULFATE-D5W PMX 1 GM in DEXTROSE/WATER 1 100ML.BAG IVPB SCH ×4 (16:08→19:54)
--- NOTE | 2023-01-26 16:16 | CT ---
EXAMINATION TYPE: CT abdomen pelvis w con DATE OF EXAM: 01/26/2023 COMPARISON: 08/06/2022 HISTORY: 67-year-old male Periumbilical pain TECHNIQUE: Contiguous axial scanning of the abdomen and pelvis following administration of 100 ml Iso karie 300 IV contrast. Delayed images through the kidneys and coronal/sagittal reconstructions perform ed. CT DLP: 1576 mGycm Automated exposure control for dose reduction was used. FINDINGS: Median sternotomy wires. Heart upper limits of normal in size. [id number] bilateral pleural effusions. No focal liver lesion. Mild periportal edema. Portal venous system appears patent. Gallbladder surgic ally absent. Adrenal glands, spleen, and pancreas within normal limits. Bilateral renal cortical cysts measuring up to 3.1 cm. No excretion of contrast on the delayed kidney phase. Somewhat patchy hypoenhancement at the upper pole right kidney probably due to underlying kid lashon dysfunction. Correlation should be made to exclude the possibility of underlying pyelonephritis. Retroaortic left renal vein. Moderate atherosclerotic calcifications infrarenal abdominal aorta and i liac arteries with right-sided iliac artery stents. Marked diffuse anasarca change. Mild to moderate abdominopelvic ascites fluid. No dilated small bowel or free air. Normal appendix. Scattered mild stool. Left-sided colonic diverticulosis greatest in the sigmoid colo n. Mild circumferential bladder wall thickening. Some perivesicular fat stranding is noted. Prostate gla nd mildly enlarged at 4.3 cm wide. L2 moderate pelvic ascites. No pelvic lymphadenopathy seen. Suspect some scarring along the right inguinal region. Bones: Facet arthropathy mid to lower lumbar spine with a trace grade 1 retrolisthesis L2-L3. IMPRESSION: 1. CORRELATE FOR THIRD SPACING AND FLUID OVERLOAD STATE GIVEN GENERALIZED ANASARCA CHANGE ALONG WITH SMALL TO MODERATE BILATERAL PLEURAL EFFUSIONS. THERE IS ALSO MILD TO MODERATE ABDOMINOPELVIC ASCITES. 2. NO EXCRETION OF CONTRAST FROM THE KIDNEYS ON DELAYED SCAN. FINDINGS SUGGEST ACUTE KIDNEY INJURY, P OSSIBLE CONTRAST INTRODUCED NEPHROPATHY. THE RENAL DYSFUNCTION MAY ACCOUNT FOR SLIGHT HYPOENHANCEMENT AT THE UPPER POLE OF THE RIGHT KIDNEY. CORRELATE CLINICALLY TO EXCLUDE THE POSSIBILITY OF UNDERLYING PYELONEPHRITIS. 3. SOME CIRCUMFERENTIAL BLADDER WALL THICKENING ALONG WITH MILD PERIVESICULAR FAT STRANDING. CORRELAT E TO EXCLUDE CYSTITIS. 4. LEFT-SIDED COLONIC DIVERTICULOSIS WITHOUT ACUTE DIVERTICULITIS.
[2023-01-26 16:39] LABS: Phosphorus 3.6 mg/dL (2.5-4.5)
[2023-01-26] MEDS ORDERED: ONDANSETRON 4 MG/2 ML VIAL IVP PRN (17:25)
[2023-01-26] MEDS ORDERED: NALOXONE 0.4 MG/ML 1 ML VIAL IV PRN (17:25)
[2023-01-26] MEDS ORDERED: HYDROcodone/APAP 5-325MG 1 EACH TAB PO PRN (17:25)
[2023-01-26] MEDS ORDERED: MORPHINE SULFATE 4 MG/ML SYRINGE IV PRN (17:25)
[2023-01-26] MEDS ORDERED: ACETAMINOPHEN TAB 325 MG TAB PO PRN (17:25)
--- NOTE | 2023-01-26 18:18 | XR ---
EXAMINATION TYPE: XR chest 2V DATE OF EXAM: 01/26/2023 6:11 PM COMPARISON: CT chest 10/14/2022, CT abdomen pelvis 01/26/2023 TECHNIQUE: XR chest 2V Frontal and lateral views of the chest. CLINICAL INDICATION:Male, 67 years old with history of Cough, pleural effusions on CT; FINDINGS: Lungs/Pleura: Trace bilateral pleural effusions. No focal consolidation pneumothorax. Hyperinflation. Pulmonary vascularity: Mild pulmonary vascular congestion. Heart/mediastinum: Cardiomediastinal silhouette is prominent in size. Left atrial appendage occlusion devices present. Musculoskeletal: No acute osseous pathology. Midline sternotomy wires are noted and stable. IMPRESSION: Cardiomegaly, pulmonary vascular congestion and bilateral pleural effusions. Correlate with BNP for c ongestive heart failure.
[2023-01-26] MEDS ORDERED: DEXTROSE 50% SYRINGE 50 ML IVP PRN ×2 (18:21)
--- NOTE | 2023-01-26 18:25 | P.HPIM ---
History of Present Illness H&P Date: 01/26/23 Patient is a 67-year-old male with history of CAD status post CABG, peripheral arterial disease, hypertension, diabetes, dyslipidemia, COPD presenting with generalized weakness. He is a poor historian. is present at bedside. Over the last 3 years or so he has been dealing with coronary artery disease, and peripheral arterial disease. He initially had stents placed in his legs, and then was found to have severe coronary artery disease with diffuse disease requiring CABG. He was also found to have systolic heart failure. More recently he was admitted for his cardiac issues at [facility] and was found to be anemic. He did not get any colonoscopy during that time. His claims that he has been feeling fatigued and short of breath for the last few weeks. Azael hathaway has been complaining independent chest pain which is relieved by nitroglycerin. He does have significant orthopnea and dyspnea with exertion. He has also gained quite a lot of weight despite eating very minimally. He denies any urinary complaints but does have occasional diarrhea. He denies any nausea or vomiting but does have abdominal pain. They went to see the PCP and had blood work done which showed persistent and worsening anemia as well as hypomagnesemia and they were sent to the emergency. In the ED, temperature was 98.3, pulse 89, respiratory rate 20, blood pressure 105/59, saturating at 99% on room air. WBC 7.1, hemoglobin 7.3, MCV 69.2, platelet 166, INR 1.3, sodium 135, bicarb 20, BUN 37, creatinine 1.35, glucose 171, magnesium 0.9, troponin 0.03, proBNP 4300. EKG independently interpreted shows sinus rhythm with right bundle branch block, and first-degree AV block, and frequent PVCs. CT abdomen and pelvis shows generalized anasarca, mild to moderate abdominal pelvic ascites, small to moderate bilateral pleural effusions, possible acute kidney injury, circumferential bladder wall thickening, left-sided colonic diverticulosis. Patient being admitted for generalized anasarca as well as microcytic anemia, generalized weakness. GI and cardiology consulted. Pertinent positives and negatives as discussed in HPI, a complete review of systems was performed and all other systems are negative. Patient seen and examined at bedside. Vital signs reviewed General: nontoxic, no distress, appears at stated age, chronically ill-appearing Derm: warm, dry Head: atraumatic, normocephalic, symmetric Eyes: EOMI, no lid lag, anicteric sclera, pupils equal round reactive to light ENT: Nose and ears atraumatic Neck: No thyromegaly, supple Mouth: no lip lesion, mucus membranes moist Cardiovascular: S1S2 reg, no murmur, trace peripheral edema Lungs: Bibasilar rales, no wheeze, no accessory muscle use Abdominal: soft, diffuse tenderness to palpation, no guarding, no appreciable organomegaly Ext: no gross muscle atrophy, muscle strength muscle strength 5 out of 5 in all 4 extremities, no contractures Neuro: CN II-XII grossly intact Psych: Alert, oriented, appropriate affect Assessment/Plan: Active: Acute on chronic Microcytic anemia Generalized anasarca Systolic heart failure exacerbation Hypomagnesemia Acute on chronic kidney injury Insulin-dependent diabetes -Iron studies ordered, reticulocyte count ordered -Repeat CBC tomorrow -GI consult -Per CT abdomen report, does have mild periportal edema, liver ultrasound ordered -Could possibly be cardiac cirrhosis -Echocardiogram pending -40 IV Lasix twice a day -Monitor magnesium levels very closely -Cardiology consulted -Nephrotic, nephrotic syndrome also on the differential however less likely, Urinalysis pending -Albumin levels within normal limits -Continue to monitor urine output, I's and O's -May need paracentesis to further characterize ascites no other causes established -Continue home insulin and sliding scale insulin, hold rest of the oral and inj ectable antidiabetics Chronic: CAD status post CABG Peripheral arterial disease Hypertension Dyslipidemia COPD, not in exacerbation The patient is admitted with an anticipated greater than 2 midnight stay as inpatient status for evaluation of anemia. Surrogate decision-maker: spouse CODE STATUS: Full code DVT prophylaxis: SCDs Anticipated discharge date: Pending clinical course Anticipated discharge place: Pending clinical course A total of 55 minutes was spent on the care of this complex patient more than 50% of the time was spent in counseling and care coordination. Past Medical History Past Medical History: Diabetes Mellitus, GERD/Reflux, Hyperlipidemia, Hypertension, Osteoarthritis (OA), Vascular Disorder Additional Past Medical History / Comment(s): "Back of heart , no treatment needed right now." "Having trouble with walking long distances right now, will use wheelchair if too far." History of Any Multi-Drug Resistant Organisms: None Reported Past Surgical History: Cholecystectomy Additional Past Surgical History / Comment(s): Procedures on right leg for vascular disorder, 2 stents placed, bilateral cataracts removed. Past Anesthesia/Blood Transfusion Reactions: No Reported Reaction Past Psychological History: No Psychological Hx Reported Smoking Status: Former smoker Past Alcohol Use History: None Reported Past Drug Use History: None Reported - Past Family History Mother Family Medical History: Cancer Additional Family Medical History / Comment(s): Breast cancer. Father Family Medical History: Cancer Additional Family Medical History / Comment(s): Prostate cancer. Medications and Allergies Home Medications Medication Instructions Recorded Confirmed Type Aspirin 81 mg PO HS 01/24/21 01/26/23 History Cholecalciferol [Vitamin D3 (25 50 mcg PO DAILY 01/24/21 01/26/23 History Mcg = 1000 Iu)] Metoprolol Tartrate 25 mg PO DAILY 01/24/21 01/26/23 History Nitroglycerin 0.4 mg SL Q5M PRN 01/24/21 01/26/23 History Omeprazole 20 mg PO BID 01/24/21 01/26/23 History Vit C/E/Zn/Coppr/Lutein/Zeaxan 1 cap PO BID 01/24/21 01/26/23 History [Preservision Areds 2 Softgel] metFORMIN HCL 1,000 mg PO BID 01/24/21 01/26/23 History Clopidogrel [Plavix] 75 mg PO DAILY 01/28/21 01/26/23 History Cyanocobalamin (Vitamin B-12) 2,500 mcg PO DAILY 01/26/23 01/26/23 History [Vitamin B-12] Dorzolamide 2% [Trusopt 2%] 1 drop BOTH EYES BID 01/26/23 01/26/23 History Fluticasone/Umeclidin/Vilanter 1 puff INHALATION RT-DAILY 01/26/23 01/26/23 History [Trelegy Ellipta 100-62.5-25] Furosemide [Lasix] 20 mg PO DAILY 01/26/23 01/26/23 History Insulin Glargine,Hum.rec.anlog 24 units SQ DAILY 01/26/23 01/26/23 History [Lantus Solostar Pen] Magnesium Oxide [Mag-Ox] 400 mg PO DAILY 01/26/23 01/26/23 History Multivit/Iron Sulf/Folic Acid 1 tab PO DAILY 01/26/23 01/26/23 History [Multivitamin with Iron] Pravastatin Sodium [Pravachol] 80 mg PO HS 01/26/23 01/26/23 History lisinopriL 2.5 mg PO HS 01/26/23 01/26/23 History Allergies Allergy/AdvReac Type Severity Reaction Status Date / Time No Known Allergies Allergy Verified 01/26/23 18:22 Physical Exam Vitals: Vital Signs Temp Pulse Resp BP Pulse Ox 01/26/23 13:57 98.3 F 89 20 105/59 99 Intake and Output 01/26/23 01/26/23 01/26/23 06:59 14:59 22:59 Other: Weight 97.522 kg Results CBC & Chem 7: 01/26/23 14:16 01/26/23 14:16 Labs: Abnormal Lab Results - Last 24 Hours (Table) 01/26/23 01/26/23 01/26/23 Range/Units 14:16 14:16 14:16 RBC 3.77 L (4.30-5.90) m/uL Hgb 7.3 L (13.0-17.5) gm/dL Hct 26.1 L (39.0-53.0) % MCV 69.2 L (80.0-100.0) fL MCH 19.4 L (25.0-35.0) pg MCHC 28.0 L (31.0-37.0) g/dL RDW 18.2 H (11.5-15.5) % PT 13.9 H (10.0-12.5) sec INR 1.3 H (<1.2) Sodium 135 L (137-145) mmol/L Carbon Dioxide 20 L (22-30) mmol/L BUN 37 H (9-20) mg/dL Creatinine 1.35 H (0.66-1.25) mg/dL Glucose 171 H (74-99) mg/dL Magnesium 0.9 L* (1.6-2.3) mg/dL
[2023-01-26 19:11] LABS: Reticulocyte % 2.3 % (0.5-2.0)
[2023-01-26 19:21] LABS: Glucose,Whole Blood 202 mg/dL (70-110)
[2023-01-26] MEDS ORDERED: PRAVASTATIN SODIUM 80 MG TAB PO SCH (21:00)
[2023-01-26] MEDS: ASPIRIN 81 MG PO SCH (22:09)
[2023-01-26] MEDS: FUROSEMIDE 10 MG/ML 4 ML VIAL IV SCH (22:09)
[2023-01-26] MEDS: DORZOLAMIDE HCL 2% DROPS 10 ML BTL BOTH EYES SCH (22:09)
[2023-01-26] MEDS: VIT A,C & E-LUTEIN-MINERALS 1 EACH TAB PO SCH (22:10)
[2023-01-26] MEDS: INSULIN ASPART (NovoLOG) 100 UNIT/ML VIAL SQ SCH (22:10)
[2023-01-26 23:18] LABS: Appearance,Urine Clear (Clear); Color,Urine Yellow; Specific Gravity,Urine 1.015 (1.001-1.035)
[2023-01-26 23:19] LABS: Bilirubin,Urine Negative (Negative); Blood,Urine Negative (Negative); Glucose,Urine (UA) Negative (Negative); Ketones,Urine Negative (Negative); Leukocyte Esterase,Urine Negative (Negative); Nitrite,Urine Negative (Negative); Protein,Urine Trace (Negative); Urobilinogen,Urine 0.2 mg/dL (<2.0)
[2023-01-27 02:39] LABS: % Iron Saturation 2.48 (15.00-50.00); Ferritin 17.4 ng/mL (22.0-322.0); Iron 13 UG/DL (65-175); Total Iron Binding Capacity 525 UG/DL (228-460)
[2023-01-27 07:53] LABS: Glucose,Whole Blood 115 mg/dL (70-110)
[2023-01-27] MEDS: INSULIN ASPART (NovoLOG) 100 UNIT/ML VIAL SQ SCH ×4 (07:54→19:59)
[2023-01-27] MEDS: PANTOPRAZOLE 40 MG TABLET PO SCH ×2 (07:58→17:47)
--- NOTE | 2023-01-27 08:11 | US ---
EXAMINATION TYPE: US liver DATE OF EXAM: 01/27/2023 COMPARISON: NONE CLINICAL INDICATION: Male, 67 years old with history of suspected cirrhosis; suspect cirrhosis, Pt. h as congestive heart failure TECHNIQUE: Multiple sonographic images of the right upper quadrant are obtained. FINDINGS: EXAM MEASUREMENTS: Liver Length: 17.6 cm Gallbladder Wall: Surgically absent cm CBD: 0.4 cm Right Kidney: 12.3x5.4x6.6 cm LEAD MAN OVER ALL DIES IN PATTERN SHOP NOTES: Pancreas: dilated duct Liver: enlarged, free fluid noted around liver Gallbladder: Surgically absent CBD: wnl Right Kidney: cystic area at mid region: 2.4x2.8x3.0cm Hepatomegaly. No focal lesion identified. No overt cirrhotic appearance. Gallbladder is surgically ab sent. Small amount of perihepatic ascites. Common bile duct is within normal limits. No hydronephrosi s, calculi, or solid mass involving the right kidney. Thin wall cyst involving the mid right kidney m easuring up to 2.8 cm. Pancreas is within normal limits. IMPRESSION: 1. Hepatomegaly without overt cirrhotic appearance. 2. Small amount of perihepatic ascites. 3. Postprostatectomy changes. 4. Simple right renal cyst.
[2023-01-27] MEDS: IPRATROPIUM 0.5 MG/2.5 ML NEBU INHALATION SCH ×4 (08:22→19:38)
[2023-01-27] MEDS: SYMBICORT 80-4.5 MCG INHALER INHALATION SCH ×2 (08:22→19:38)
[2023-01-27] MEDS ORDERED: METOPROLOL TARTRATE 25 MG TAB PO SCH (09:00)
[2023-01-27] MEDS ORDERED: CLOPIDOGREL 75 MG TAB PO SCH (09:00)
[2023-01-27 09:12] LABS: ALT 12 U/L (10-49); AST 28 U/L (14-35); Albumin 3.7 d/dL (3.8-4.9); Albumin/Globulin Ratio 1.32 Ratio (1.60-3.17); Alkaline Phosphatase 111 U/L (41-126); Blood Urea Nitrogen 34.3 mg/dL (9.0-27.0); Calcium 8.5 mg/dL (8.7-10.3); Carbon Dioxide 19.4 mmol/L (21.6-31.8); Chloride 100 mmol/L (96-109); Globulin 2.8 d/dL (1.6-3.3); Glucose 108 mg/dL (70-110); Potassium 4.3 mmol/L (3.5-5.5); Sodium 133 mmol/L (135-145); Total Protein 6.5 d/dL (6.2-8.2)
[2023-01-27] MEDS: CYANOCOBALAMIN 500 MCG TAB PO SCH (09:32)
[2023-01-27] MEDS: INSULIN DETEMIR (LEVEMIR) 100 UNIT/ML SYR SQ SCH (09:32)
[2023-01-27] MEDS: FUROSEMIDE 10 MG/ML 4 ML VIAL IV SCH ×2 (09:33→20:00)
[2023-01-27] MEDS: MULTIVITAMINS, THERA 1 EACH TAB PO SCH (09:33)
[2023-01-27] MEDS: CHOLECALCIFEROL 25 MCG (1000 IU) TABLET PO SCH (09:33)
[2023-01-27] MEDS: MAGNESIUM OXIDE 400 MG TAB PO SCH (09:33)
[2023-01-27] MEDS: METOPROLOL SUCCINATE (ER) 25 MG TAB.ER.24H PO SCH (09:52)
[2023-01-27] MEDS: MAGNESIUM SULFATE-D5W PMX 1 GM in DEXTROSE/WATER 1 100ML.BAG IVPB SCH ×4 (09:52→15:06)
[2023-01-27] MEDS: DORZOLAMIDE HCL 2% DROPS 10 ML BTL BOTH EYES SCH ×2 (09:52→20:00)
[2023-01-27] MEDS: DAPAGLIFLOZIN PROPANEDIOL 10 MG TABLET PO SCH (09:57)
--- NOTE | 2023-01-27 09:59 | P.CRDCN ---
History of Present Illness Consult date: 01/27/23 Reason for Consult (text): History of CAD, CABG, heart failure with reduced EF in exacerbation History of present illness: History of present illness: This is a 67-year-old male previously seen in the office by Dr. Ever Sanchez and currently follows with Dr. Sarkar and multiple vitamins. He has a past medical history of coronary artery disease status post three-vessel CABG 2 years ago, cardiomyopathy with EF of 35%, peripheral vascular disease status post lower extremity stents, diabetes mellitus, hypertension, hyperlipidemia and gastroesop hageal reflux disease, remote history of tobacco use. We have been asked to evaluate the patient for CAD, CABG, heart failure with reduced EF and exacerbation. Patient states he saw his PCP because he was feeling tired and fatigued and had lab work done because of abnormal lab results he was sent into the hospital for evaluation. He has history that he has had a transfusion a few months ago and stenting of his lower extremity had to be postponed. Patient is seen today in the emergency center waiting for a bed on the [facility] floor. Patient is status post magnesium replacement and started on IV Lasix 40 mg every 12 hours. EKG sinus rhythm with right bundle branch block, 88 bpm Chest x-ray: Cardiomegaly, pulmonary vascular congestion and bilateral pleural effusions. Correlate for heart failure. CAT scan of the abdomen and pelvis correlate for third spacing of fluid overload given generalized anasarca [id number] bilateral pleural effusions, mild to moderate abdominal ascites. Findings suggest acute kidney injury possibly contrast-induced nephropathy and renal dysfunction correlate to exclude underlying pyelonephritis. Bladder wall thickening correlate for cystitis. Lef t-sided colonic diverticulosis without diverticulitis. Liver ultrasound hepatomegaly without overt cirrhotic appearance. Small amount of. Hepatic ascites. Post-prostatectomy changes. Simple right renal cyst. WBC 7.1, hemoglobin 7.3, platelet count 166. INR 1.3. Sodium 133, potassium 4.3, BUN 34 creatinine 1.4. Blood sugar 115. Magnesium 0.9. Iron 13, TIBC 525, iron saturation 2.48, transferrin 373. Liver function within normal limits. Troponin negative 3. Urinalysis trace protein. Home cardiac medications: Aspirin 81 mg daily, Plavix 75 mg daily, Lasix 20 mg daily, lisinopril 2.5 mg at bedtime, metoprolol tartrate 25 mg daily, pravastatin 80 mg at bedtime Review Of Systems: At the time of my evaluation: Constitutional: No fever, no chills. + weakness, + fatigue or lethargy. EENT: No headache. No dizziness. Lungs: "little" shortness of breath,+ cough, + sputum production. No wheezing. Cardiovascular: No chest pain, no lower extremity edema. No palpitations. No paroxysmal nocturnal dyspnea. No orthopnea. No lightheadedness or dizziness. No syncopal episodes. Abdominal: No abdominal pain. No nausea, vomiting. No diarrhea. No constipation. No bloody or tarry stools. Musculoskeletal: No myalgias. No muscle weakness, no frequent falls. Integumentary: No wounds. No rash. No unusual bruising. Neurologic: No aphasia. No facial droop. No change in mentation. Physical examination: Gen: This is a 67-year-old male resting on the ER stretcher and appears to be in no acute distress. VS: reviewed HEENT: Head is atraumatic, normocephalic. Pupils equal, round. Sclerae is anicteric. NECK: Supple. No JVD. . LUNGS: Clear to auscultation. No wheezes or rhonchi. No intercostal retractions. HEART: Regular rate and rhythm. 2/6 systolic murmur. ABDOMEN: Soft No tenderness. EXTREMITIES: No pedal edema. No calf tenderness. NEUROLOGICAL: Patient is awake, alert and oriented x3. Assessment: Acute on chronic HFrEF Anemia Hypomagnesemia Ascites History of coronary artery disease status post CABG Peripheral vascular disease with recent stent Diabetes Hypertension Hyperlipidemia Gastroesophageal reflux disease Remote history of tobacco use Plan: Resume patient's home cardiac medications with the following changes: Change statin to Lipitor 80 mg daily, change metoprolol tartrate to Toprol-XL 25 mg daily Plavix is on hold due to possible GI bleed but continued on aspirin 81 mg daily Continue IV Lasix 40 mg every 12 hours, most likely transition to oral tomorrow Start patient on Farxiga 10 mg daily Magnesium replacement in process Obtain 2-D echocardiogram and Doppler study to assess cardiac structure and function Obtain recent echocardiogram and office note from Dr. Sarkar, window shade cutter and mounter in [facility]. Plan to optimize medical treatment Further recommendations to follow based upon clinical course Thank you kindly for this consultation. Nurse practitioner note has been reviewed, I agree with documented findings and plan of care. Patient was seen and examined. Past Medical History Past Medical History: Diabetes Mellitus, GERD/Reflux, Hyperlipidemia, Hypertension, Osteoarthritis (OA), Vascular Disorder Additional Past Medical History / Comment(s): "Back of heart , no treatment needed right now." "Having trouble with walking long distances right now, will u se wheelchair if too far." History of Any Multi-Drug Resistant Organisms: None Reported Past Surgical History: Cholecystectomy Additional Past Surgical History / Comment(s): Procedures on right leg for vascular disorder, 2 stents placed, bilateral cataracts removed. Past Anesthesia/Blood Transfusion Reactions: No Reported Reaction Past Psychological History: No Psychological Hx Reported Smoking Status: Former smoker Past Alcohol Use History: None Reported Past Drug Use History: None Reported - Past Family History Mother Family Medical History: Cancer Additional Family Medical History / Comment(s): Breast cancer. Father Family Medical History: Cancer Additional Family Medical History / Comment(s): Prostate cancer. Medications and Allergies Home Medications Medication Instructions Recorded Confirmed Type Aspirin 81 mg PO HS 01/24/21 01/26/23 History Cholecalciferol [Vitamin D3 (25 50 mcg PO DAILY 01/24/21 01/26/23 History Mcg = 1000 Iu)] Metoprolol Tartrate 25 mg PO DAILY 01/24/21 01/26/23 History Nitroglycerin 0.4 mg SL Q5M PRN 01/24/21 01/26/23 History Omeprazole 20 mg PO BID 01/24/21 01/26/23 History Vit C/E/Zn/Coppr/Lutein/Zeaxan 1 cap PO BID 01/24/21 01/26/23 History [Preservision Areds 2 Softgel] metFORMIN HCL 1,000 mg PO BID 01/24/21 01/26/23 History Clopidogrel [Plavix] 75 mg PO DAILY 01/28/21 01/26/23 History Cyanocobalamin (Vitamin B-12) 2,500 mcg PO DAILY 01/26/23 01/26/23 History [Vitamin B-12] Dorzolamide 2% [Trusopt 2%] 1 drop BOTH EYES BID 01/26/23 01/26/23 History Fluticasone/Umeclidin/Vilanter 1 puff INHALATION RT-DAILY 01/26/23 01/26/23 History [Trelegy Ellipta 100-62.5-25] Furosemide [Lasix] 20 mg PO DAILY 01/26/23 01/26/23 History Insulin Glargine,Hum.rec.anlog 24 units SQ DAILY 01/26/23 01/26/23 History [Lantus Solostar Pen] Magnesium Oxide [Mag-Ox] 400 mg PO DAILY 01/26/23 01/26/23 History Multivit/Iron Sulf/Folic Acid 1 tab PO DAILY 01/26/23 01/26/23 History [Multivitamin with Iron] Pravastatin Sodium [Pravachol] 80 mg PO HS 01/26/23 01/26/23 History lisinopriL 2.5 mg PO HS 01/26/23 01/26/23 History Allergies Allergy/AdvReac Type Severity Reaction Status Date / Time No Known Allergies Allergy Verified 01/26/23 18:22 Physical Exam Vitals: Vital Signs Temp Pulse Resp BP Pulse Ox 01/27/23 07:43 98.2 F 98 16 126/75 99 01/27/23 06:21 97 18 90/58 97 01/27/23 02:00 103 H 18 131/72 97 01/26/23 22:00 98.7 F 107 H 18 136/62 99 01/26/23 13:57 98.3 F 89 20 105/59 99 Results 01/26/23 14:16 01/27/23 05:50 Cardiac Enzymes 01/26/23 01/26/23 01/26/23 Range/Units 14:16 14:16 17:59 AST 45 (17-59) U/L Troponin I 0.030 0.034 (0.000-0.034) ng/mL 01/26/23 Range/Units 21:27 AST (17-59) U/L Troponin I 0.034 (0.000-0.034) ng/mL Coagulation 01/26/23 Range/Units 14:16 PT 13.9 H (10.0-12.5) sec APTT 27.3 (22.0-30.0) sec CBC 01/26/23 Range/Units 14:16 WBC 7.1 (3.8-10.6) k/uL RBC 3.77 L (4.30-5.90) m/uL Hgb 7.3 L (13.0-17.5) gm/dL Hct 26.1 L (39.0-53.0) % Plt Count 166 (150-450) k/uL Comprehensive Metabolic Panel 01/26/23 Range/Units 14:16 Sodium 135 L (137-145) mmol/L Potassium 5.1 (3.5-5.1) mmol/L Chloride 104 (98-107) mmol/L Carbon Dioxide 20 L (22-30) mmol/L BUN 37 H (9-20) mg/dL Creatinine 1.35 H (0.66-1.25) mg/dL Glucose 171 H (74-99) mg/dL Calcium 8.4 (8.4-10.2) mg/dL AST 45 (17-59) U/L ALT 17 (4-49) U/L Alkaline Phosphatase 104 (38-126) U/L Total Protein 7.0 (6.3-8.2) g/dL Albumin 3.8 (3.5-5.0) g/dL Current Medications Generic Name Dose Route Start Last Admin Trade Name Freq PRN Reason Stop Dose Admin Acetaminophen 650 mg 01/26/23 17:25 Acetaminophen Tab 325 Mg Tab PO Q6HR PRN Mild Pain or Fever > 100.5 Hydrocodone Bitart/Acetaminophen 1 each 01/26/23 17:25 Hydrocodone/Apap 5-325mg 1 Each Tab PO Q4HR PRN Moderate Pain (Scale 4 to 6) Aspirin 81 mg 01/26/23 21:00 01/26/23 22:09 Aspirin 81 Mg PO 81 mg HS ROX Administration Budesonide/Formoterol Fumarate 2 puff 01/27/23 08:00 Symbicort 80-4.5 Mcg Inhaler INHALATION RT-BID ROX Cholecalciferol 50 mcg 01/27/23 09:00 Cholecalciferol 25 Mcg (1000 Iu) Tablet PO DAILY ROX Clopidogrel Bisulfate 75 mg 01/27/23 09:00 Clopidogrel 75 Mg Tab PO DAILY ROX Cyanocobalamin 2,500 mcg 01/27/23 09:00 Cyanocobalamin 500 Mcg Tab PO DAILY ROX Dextrose/Water 50 ml 01/26/23 18:21 Dextrose 50% Syringe 50 Ml IVP PER PROTOCOL PRN Hypoglycemia Protocol Dextrose/Water 25 ml 01/26/23 18:21 Dextrose 50% Syringe 50 Ml IVP PER PROTOCOL PRN Hypoglycemia Protocol Dorzolamide HCl 1 drops 01/26/23 21:00 01/26/23 22:09 Dorzolamide Hcl 2% Drops 10 Ml Btl BOTH EYES 1 drops BID ROX Administration Furosemide 40 mg 01/26/23 21:00 01/26/23 22:09 Furosemide 10 Mg/Ml 4 Ml Vial IV 40 mg Q12HR ROX Administration Insulin Aspart 0 unit 01/26/23 21:00 01/27/23 07:54 Insulin Aspart (Novolog) 100 Unit/Ml Vial SQ Not Given ACHS [facility] Protocol Insulin Detemir 24 unit 01/27/23 09:00 Insulin Detemir (Levemir) 100 Unit/Ml Syr SQ DAILY ROX Ipratropium [place] 0.5 mg 01/27/23 08:00 Ipratropium 0.5 Mg/2.5 Ml Nebu INHALATION RT-QID ROX Lisinopril 2.5 mg 01/26/23 21:00 01/26/23 22:10 Lisinopril 2.5 Mg Tab PO 2.5 mg HS ROX Administration Magnesium Oxide 400 mg 01/27/23 09:00 Magnesium Oxide 400 Mg Tab PO DAILY ROX Metoprolol Tartrate 25 mg 01/27/23 09:00 Metoprolol Tartrate 25 Mg Tab PO DAILY [facility] Morphine Sulfate 4 mg 01/26/23 17:25 Morphine Sulfate 4 Mg/Ml Syringe IV Q4HR PRN Severe Pain (Scale 7 to 10) Multivitamins 1 each 01/27/23 09:00 Multivitamins, Thera 1 Each Tab PO DAILY [facility] Multivitamins/Minerals 1 each 01/26/23 21:00 01/26/23 22:10 Vit A,C & K-Qgaebp-Vejgzsao 1 Each Tab PO 1 each HS ROX Administration Naloxone HCl 0.2 mg 01/26/23 17:25 Naloxone 0.4 Mg/Ml 1 Ml Vial IV Q2M PRN Opioid Reversal Ondansetron HCl 4 mg 01/26/23 17:25 Ondansetron 4 Mg/2 Ml Vial IVP Q8HR PRN Nausea And Vomiting Pantoprazole Sodium 40 mg 01/27/23 07:30 01/27/23 07:58 Pantoprazole 40 Mg Tablet PO 40 mg AC-BID ROX Administration Pravastatin Sodium 80 mg 01/26/23 21:00 01/26/23 22:09 Pravastatin Sodium 80 Mg Tab PO 80 mg HS ROX Administration 01/26/23 14:16 01/26/23 14:16
[2023-01-27 10:07] LABS: Basophils # (A) 0.07 X 10*3/uL (0.00-0.10); Basophils % (A) 0.9 %; Elliptocytes 2+; Eosinophils # (A) 0.17 X 10*3/uL (0.04-0.35); Eosinophils % (A) 2.1 %; HCT 23.4 % (39.6-50.0); HGB 6.6 d/dL (13.0-17.0); Hypochromasia (M) 3+; Lymphocytes # (A) 1.16 X 10*3/uL (0.90-5.00); Lymphocytes % (A) 14.2 %; MCHC 28.2 d/dL (32.0-37.0); MCV 67.4 FL (80.0-97.0); Microcytosis (M) 3+; Monocytes # (A) 0.96 X 10*3/uL (0.20-1.00); Monocytes % (A) 11.8 %; NRBC Per 100 WBC 0.02 X 10*3/uL (0.00-0.01); Neutrophils # (A) 5.77 X 10*3/uL (1.80-7.70); Neutrophils % (A) 70.6 %; Platelet Count 183 X 10*3/uL (140-440); RBC 3.47 X 10*6/uL (4.40-5.60); RDW 19.2 % (11.5-14.5); Schistocytes 1+; WBC 8.16 X 10*3/uL (4.50-10.00)
--- NOTE | 2023-01-27 11:30 | CA ---
Transthoracic Echo Report Name: Jesus Orozco Age: 67 Gender: M : 1955 Exam Date: 01/27/2023 08:12 Exam Location: [place] [facility] Ht (in): 70 Wt (lb): 215 Ordering Physician: Tomy Sheffield MD Attending/Referring Phys: Butter Wrapper Angella Olivarez RDCS Procedure CPT: Indications: chf exacerbation Cardiac Hx: CABG, STENTS Technical Quality: Good Contrast 1: Total Dose (mL): Contrast 2: Total Dose (mL): MEASUREMENTS (Male / Female) Normal Values 2D ECHO LV Diastolic Diameter PLAX 4.7 cm 4.2 - 5.9 / 3.9 - 5.3 cm LV Systolic Diameter PLAX 4.0 cm IVS Diastolic Thickness 1.6 cm 0.6 - 1.0 / 0.6 - 0.9 cm LVPW Diastolic Thickness 1.6 cm 0.6 - 1.0 / 0.6 - 0.9 cm LV Relative Wall Thickness 0.7 RV Internal Dim ED PLAX 3.4 cm LA Systolic Diameter LX 4.4 cm 3.0 - 4.0 / 2.7 - 3.8 cm LV Diastolic Volume MOD 4C 156.6 cm??? LV Systolic Volume MOD 4C 103.4 cm??? LV Ejection Fraction MOD 4C 34.0 % LV Cardiac Index MOD 4C 2322.9 cm???/min???m??? LV Diastolic Length 4C 8.0 cm LV Systolic Length 4C 7.1 cm LV Diastolic Volume MOD 2C 151.2 cm??? LV Systolic Volume MOD 2C 95.6 cm??? LV Ejection Fraction MOD 2C 36.8 % LV Cardiac Index MOD 2C 2427.8 cm???/min???m??? LV Diastolic Length 2C 7.8 cm LV Systolic Length 2C 6.7 cm LA Volume 78.0 cm??? 18 - 58 / 22 - 52 cm??? LA Volume Index 35.1 cm???/m??? 16 - 28 cm???/m??? M-MODE Aortic Root Diameter MM 3.3 cm MV E Point Septal Separation 1.1 cm AV Cusp Separation MM 2.3 cm DOPPLER AV Peak Velocity 141.8 cm/s AV Peak Gradient 8.0 mmHg MV Area PHT 5.7 cm??? MV Deceleration Time 119.4 ms TR Peak Velocity 234.0 cm/s TR Peak Gradient 21.9 mmHg Right Ventricular Systolic Press 35.8 mmHg FINDINGS Left Ventricle Left ventricular ejection fraction is estimated at 35-40 %. Inferior and inferoseptal severe hypokinesis Left ventricular cavity size normal. Moderate concentric left ventricular hypertrophy. Right Ventricle Mild right ventricular dilatation. Mild pulmonary hypertension. Right Atrium Normal right atrial size. Left Atrium Mildly increased left atrial diameter. Moderately increased left atrial volume. Mitral Valve Mitral valve thickened. Mild mitral annular calcification. Mild to moderate mitral regurgitation. Aortic Valve Trileaflet aortic valve. No aortic valve stenosis or regurgitation. Tricuspid Valve Structurally normal tricuspid valve. Mild tricuspid regurgitation. Pulmonic Valve Pulmonic valve not well visualized. Pericardium No pericardial effusion. Aorta Normal size aortic root and proximal ascending aorta. CONCLUSIONS 1. Moderately to severely impaired left ventricular systolic function with segmental wall motion abnormality 2. Mild to moderate mitral with mild tricuspid regurgitation and mild pulmonary hypertension Previewed by: Dr. Ira Brower MD (Electronically Signed) Final Date: 27 January 2023 11:29
[2023-01-27] MEDS: NICOTINE 21MG/24HR PATCH TRANSDERM SCH (11:41)
--- NOTE | 2023-01-27 12:14 | P.CONS ---
History of Present Illness - Reason for Consult Consult date: 01/27/23 Microcytic anemia Requesting physician: Tomy Sheffield - Chief Complaint Abnormal labs - History of Present Illness This is a 67-year-old male who presented to the emergency department directed by his PCP for abnormal labs. She has multiple comorbidities including coronary artery disease status post CABG, congestive heart failure, peripheral arterial disease status post stenting, diabetes mellitus, GERD, hyperlipidemia, hypertension, and former smoker. He believes that his hemoglobin was low. States that he was supposed to have undergo peripheral arterial intervention a couple months ago however he was told at that time that his hemoglobin was very low and it was canceled. He states that he had to get 4 units of blood. This was all done at [facility]. He is unsure of his last colonoscopy believes it to be less than 10 years however states that they did not do EGD or colonoscopy at [facility] as there was no evidence of GI bleed. Supposedly patient was told he could have it done outpatient however he never followed up. He does take aspirin 81 mg daily as well as Plavix 75 mg daily but no other anticoagulation. He denies any blood in his stool, no black stool, no nausea or vomiting and no significant abdominal pain. Denies any history of peptic ulcer disease or regular NSAID use. He does state that he has. Umbilical discomfort recently. He did undergo CT abdomen and pelvis with contrast reporting third spacing of fluid overload state, and generalized anasarca changes along with [id number] bilateral pleural effusions. Mild to moderate abdominal pelvic ascites. No excretion of contrast from kidneys and delayed scan findings suggest acute kidney injury, circumferential bladder wall thickening and left- sided colonic diverticulosis without evidence of acute diverticulitis. Admitting hemoglobin 7.3 hematocrit 26 platelet count 166,000, labs consistent with microcytic anemia. Patient also had iron studies consistent with iron deficient anemia. Patient did have a drop in his hemoglobin today to 6.6 but again denies any abdominal pain, no nausea or vomiting no black stool or blood in his stool. Review of Systems REVIEW OF SYSTEMS: CARDIOPULMONARY: No chest pain or shortness of breath. Gastrointestinal: States overall no abdominal pain has had some. Umbilical discomfort or last couple days. No nausea or vomiting. No hematemesis, coffee-ground emesis. No rectal bleeding, or melena. GENITOURINARY: No dysuria or hematuria. MUSCULOSKELETAL: Reports normal range of motion., Joint pain. SKIN: No rashes. No jaundice. ENDOCRINE: No chills, fevers. No excessive weight gain or loss. No polydipsia or polyuria. PSYCHIATRIC: Unremarkable. NEUROLOGY: No change in mental status. Denies dizziness, headache. ENT: Vision unremarkable. CONSTITUTIONAL: No recent weight loss. No fever, chills, night sweats. Complains of increased weakness and fatigue. Lower extremity pain with walking. Past Medical History Past Medical History: Diabetes Mellitus, GERD/Reflux, Hyperlipidemia, Hypertension, Osteoarthritis (OA), Vascular Disorder Additional Past Medical History / Comment(s): "Back of heart , no treatment needed right now." "Having trouble with walking long distances right now, will use wheelchair if too far." History of Any Multi-Drug Resistant Organisms: None Reported Past Surgical History: Cholecystectomy Additional Past Surgical History / Comment(s): Procedures on right leg for vascular disorder, 2 stents placed, bilateral cataracts removed. Past Anesthesia/Blood Transfusion Reactions: No Reported Reaction Past Psychological History: No Psychological Hx Reported Smoking Status: Former smoker Past Alcohol Use History: None Reported Past Drug Use History: None Reported - Past Family History Mother Family Medical History: Cancer Additional Family Medical History / Comment(s): Breast cancer. Father Family Medical History: Cancer Additional Family Medical History / Comment(s): Prostate cancer. Medications and Allergies Home Medications Medication Instructions Recorded Confirmed Type Aspirin 81 mg PO HS 01/24/21 01/26/23 History Cholecalciferol [Vitamin D3 (25 50 mcg PO DAILY 01/24/21 01/26/23 History Mcg = 1000 Iu)] Metoprolol Tartrate 25 mg PO DAILY 01/24/21 01/26/23 History Nitroglycerin 0.4 mg SL Q5M PRN 01/24/21 01/26/23 History Omeprazole 20 mg PO BID 01/24/21 01/26/23 History Vit C/E/Zn/Coppr/Lutein/Zeaxan 1 cap PO BID 01/24/21 01/26/23 History [Preservision Areds 2 Softgel] metFORMIN HCL 1,000 mg PO BID 01/24/21 01/26/23 History Clopidogrel [Plavix] 75 mg PO DAILY 01/28/21 01/26/23 History Cyanocobalamin (Vitamin B-12) 2,500 mcg PO DAILY 01/26/23 01/26/23 History [Vitamin B-12] Dorzolamide 2% [Trusopt 2%] 1 drop BOTH EYES BID 01/26/23 01/26/23 History Fluticasone/Umeclidin/Vilanter 1 puff INHALATION RT-DAILY 01/26/23 01/26/23 History [Trelegy Ellipta 100-62.5-25] Furosemide [Lasix] 20 mg PO DAILY 01/26/23 01/26/23 History Insulin Glargine,Hum.rec.anlog 24 units SQ DAILY 01/26/23 01/26/23 History [Lantus Solostar Pen] Magnesium Oxide [Mag-Ox] 400 mg PO DAILY 01/26/23 01/26/23 History Multivit/Iron Sulf/Folic Acid 1 tab PO DAILY 01/26/23 01/26/23 History [Multivitamin with Iron] Pravastatin Sodium [Pravachol] 80 mg PO HS 01/26/23 01/26/23 History lisinopriL 2.5 mg PO HS 01/26/23 01/26/23 History Allergies Allergy/AdvReac Type Severity Reaction Status Date / Time No Known Allergies Allergy Verified 01/26/23 18:22 Physical Exam Vitals: Vital Signs Temp Pulse Resp BP Pulse Ox 01/27/23 08:26 102 H 01/27/23 07:43 98.2 F 98 16 126/75 99 01/27/23 06:21 97 18 90/58 97 01/27/23 02:00 103 H 18 131/72 97 01/26/23 22:00 98.7 F 107 H 18 136/62 99 01/26/23 13:57 98.3 F 89 20 105/59 99 General appearance: The patient is alert, oriented, appears in no acute distress. HET: Head is normocephalic and atraumatic. Conjunctiva pink. Sclera anicteric. Neck: Supple without lymphadenopathy. Trachea midline. Heart: Regular. Lungs: Equal expansion, normal respiratory effort. Abdomen: Soft, nontender, nondistended with bowel sounds. Obese. No guarding or rigidity. Skin: No rashes. No jaundice. Extremities: Normal skin color and turgor. No pedal edema. Neurological: No focal deficits. Alert and oriented x3. Results CBC & Chem 7: 01/27/23 05:50 01/27/23 05:50 Labs: Abnormal Lab Results - Last 24 Hours (Table) 01/26/23 01/26/23 01/26/23 Range/Units 14:16 14:16 14:16 RBC 3.77 L (4.30-5.90) m/uL Hgb 7.3 L (13.0-17.5) gm/dL Hct 26.1 L (39.0-53.0) % MCV 69.2 L (80.0-100.0) fL MCH 19.4 L (25.0-35.0) pg MCHC 28.0 L (31.0-37.0) g/dL RDW 18.2 H (11.5-15.5) % Retic Count (0.5-2.0) % PT 13.9 H (10.0-12.5) sec INR 1.3 H (<1.2) Sodium 135 L (137-145) mmol/L Carbon Dioxide 20 L (22-30) mmol/L BUN 37 H (9-20) mg/dL Creatinine 1.35 H (0.66-1.25) mg/dL Glucose 171 H (74-99) mg/dL POC Glucose (mg/dL) (70-110) mg/dL Magnesium 0.9 L* (1.6-2.3) mg/dL Iron (65-175) UG/DL TIBC (228-460) UG/DL % Saturation (15.00-50.00) Transferrin (204.0-354.0) mg/dL Ferritin (22.0-322.0) ng/mL Urine Protein (Negative) 01/26/23 01/26/23 01/26/23 Range/Units 14:16 19:17 21:27 RBC (4.30-5.90) m/uL Hgb (13.0-17.5) gm/dL Hct (39.0-53.0) % MCV (80.0-100.0) fL MCH (25.0-35.0) pg MCHC (31.0-37.0) g/dL RDW (11.5-15.5) % Retic Count 2.3 H (0.5-2.0) % PT (10.0-12.5) sec INR (<1.2) Sodium (137-145) mmol/L Carbon Dioxide (22-30) mmol/L BUN (9-20) mg/dL Creatinine (0.66-1.25) mg/dL Glucose (74-99) mg/dL POC Glucose (mg/dL) 202 H (70-110) mg/dL Magnesium (1.6-2.3) mg/dL Iron 13 L (65-175) UG/DL TIBC 525 H (228-460) UG/DL % Saturation 2.48 L (15.00-50.00) Transferrin 375.0 H (204.0-354.0) mg/dL Ferritin 17.4 L (22.0-322.0) ng/mL Urine Protein (Negative) 01/26/23 01/26/23 01/27/23 Range/Units 21:27 22:24 07:51 RBC (4.30-5.90) m/uL Hgb (13.0-17.5) gm/dL Hct (39.0-53.0) % MCV (80.0-100.0) fL MCH (25.0-35.0) pg MCHC (31.0-37.0) g/dL RDW (11.5-15.5) % Retic Count (0.5-2.0) % PT (10.0-12.5) sec INR (<1.2) Sodium (137-145) mmol/L Carbon Dioxide (22-30) mmol/L BUN (9-20) mg/dL Creatinine (0.66-1.25) mg/dL Glucose (74-99) mg/dL POC Glucose (mg/dL) 115 H (70-110) mg/dL Magnesium (1.6-2.3) mg/dL Iron (65-175) UG/DL TIBC (228-460) UG/DL % Saturation (15.00-50.00) Transferrin 373.0 H (204.0-354.0) mg/dL Ferritin (22.0-322.0) ng/mL Urine Protein Trace H (Negative) Comments: CT abdomen and pelvis with contrast. Correlate for third spacing of fluid overload state given generalized anasarca changes along with [id number] bilateral pleural effusions. There is also mild to moderate abdominal pelvic ascites. No excretion of contrast from the kidneys on delayed scan. Findings suggest acute kidney injury, possible contrast introduced nephropathy. The renal dysfunction may account for slight hypo-enhancement at the upper pole of the right kidney. Correlate clinically to exclude the possibility of underlying pyelonephritis. Some circumferential bladder wall thickening along with mild perifascicular fat stranding. Correlate to exclude cystitis. Left-sided c olonic diverticulosis without acute diverticulitis Liver ultrasound. Hepatomegaly without overt cirrhotic appearance. Small amount of perihepatic ascites. Postprostectomy changes. Simple right renal cyst. Echocardiogram moderately to severely impaired left ventricular systolic function with segmental wall motion abnormality. EF 35-40%. Mild to moderate mitral with mild tricuspid regurgitation and mild pulmonary hypertension. Assessment and Plan (1) Microcytic anemia Narrative/Plan: [id number] with multiple comorbidities. Outpatient blood work done was told to come to the emergency department for low hemoglobin. Patient was recently seen and cleared [facility] and was to undergo peripheral arterial disease however at that time was also found to be anemic with no signs or symptoms of GI bleed. He never underwent EGD and colonoscopy during that hospitalization. Unsure of last EGD colonoscopy (less than 10 years. Denies any black stool, blood in stool rectal bleeding, or hematemesis. No history of GI bleed in the past. He is on aspirin 81 mg daily and Plavix 75 mg daily, no NSAID use. Patient presents with microcytic anemia, iron studies are consistent with an iron deficiency anemia with a drop in hemoglobin today to 6.6. Unclear etiology of anemia however need to consider possible GI bleed. Would recommend holding Plavix, Protonix for GI prophylaxis, avoid NSAID use and recommend EGD and colonoscopy at some point. Current Visit: Yes Status: Acute Code(s): D50.9 - IRON DEFICIENCY ANEMIA, UNSPECIFIED SNOMED Code(s): 449410478 (2) Coronary artery disease Current Visit: Yes Status: Acute Code(s): I25.10 - ATHSCL HEART DISEASE OF [place] CORONARY ARTERY W/O ANG PCTRS SNOMED Code(s): 42875632 (3) Heart failure Current Visit: Yes Status: Acute Code(s): I50.9 - HEART FAILURE, UNSPECIFIED SNOMED Code(s): 43864605 (4) Diabetes mellitus Current Visit: Yes Status: Acute Code(s): E11.9 - TYPE 2 DIABETES MELLITUS WITHOUT COMPLICATIONS SNOMED Code(s): 77065180 (5) Peripheral arterial disease Current Visit: Yes Status: Acute Code(s): I73.9 - PERIPHERAL VASCULAR DISEASE, UNSPECIFIED SNOMED Code(s): 298815804 Plan: 1. Continue symptomatic and supportive care 2. Give 1 unit of PRBC 3. Daily CBC, transfuse for hemoglobin less than 7 4. Hold Plavix 5. Protonix 40 mg daily for GI prophylaxis 6. Await cardiology evaluation and recommendations 7. Patient will need EGD and colonoscopy, tentatively planned for Wednesday Thank you for this consultation, we will continue to follow. Dr. Devendra Sanchez I agree with the dictator's note, documented as a scribe by Dominga Williamson.
[2023-01-27 12:19] LABS: Glucose,Whole Blood 293 mg/dL (70-110)
--- NOTE | 2023-01-27 13:03 | P.PN ---
Subjective Progress Note Date: 01/27/23 Hospital Course: Patient is a 67-year-old male with history of CAD status post CABG, peripheral arterial disease, hypertension, diabetes, dyslipidemia, COPD presenting with generalized weakness. In the ED, temperature was 98.3, pulse 89, respiratory rate 20, blood pressure 105/59, saturating at 99% on room air. WBC 7.1, hemoglobin 7.3, MCV 69.2, platelet 166, INR 1.3, sodium 135, bicarb 20, BUN 37, creatinine 1.35, glucose 171, magnesium 0.9, troponin 0.03, proBNP 4300. EKG independently interpreted shows sinus rhythm with right bundle branch block, and first-degree AV block, and frequent PVCs. CT abdomen and pelvis shows generalized anasarca, mild to moderate abdominal pelvic ascites, small to moderate bilateral pleural effusions, possible acute kidney injury, circumferent ial bladder wall thickening, left-sided colonic diverticulosis. Patient being admitted for generalized anasarca as well as microcytic anemia, generalized weakness. GI and cardiology consulted. Her history is consistent with iron deficiency anemia. Hemoglobin further dropped. Requiring 1 unit of PRBCs. Also in acute on chronic CHF exacerbation, on IV Lasix. Patient will likely need EGD and colonoscopy at some point. Subjective: She is seen and examined at this. No acute events overnight. Overall feels better today. Pertinent positives and negatives as discussed above, a complete review of systems was performed and all other systems are negative. Vitals Signs Reviewed. General: nontoxic, no distress, appears at stated age, chronically ill-appearing Derm: warm, dry Head: atraumatic, normocephalic, symmetric Eyes: EOMI, no lid lag, anicteric sclera, pupils equal round reactive to light ENT: Nose and ears atraumatic Neck: No thyromegaly, supple Mouth: no lip lesion, mucus membranes moist Cardiovascular: S1S2 reg, no murmur, trace peripheral edema Lungs: Bibasilar rales, no wheeze, no accessory muscle use Abdominal: soft, diffuse tenderness to palpation, no guarding, no appreciable organomegaly Ext: no gross muscle atrophy, muscle strength muscle strength 5 out of 5 in all 4 extremities, no contractures Neuro: CN II-XII grossly intact Psych: Alert, oriented, appropriate affect Data Reviewed Today: Pertinent Labs: Hemoglobin 6.6, sodium 133, potassium 4.3, creatinine 1.4, magnesium 0.9 Imaging: Echocardiogram showed moderate to severely impaired left systolic function, likely 35-40%, mild to moderate mitral and mild tricuspid regurgitation, mild pulmonary hypertension. Liver ultrasound showed hepatomegaly without overt cirrhotic appearance. Assessment and Plan: Acute iron deficiency anemia Generalized anasarca Systolic heart failure exacerbation acute on chronic Severe Hypomagnesemia Acute on chronic kidney injury Insulin-dependent diabetes -GI note reviewed, pantoprazole 40 mg NAMRATA, hold Plavix, may need colonoscopy and EGD -Being transfused 1 unit of PRBCs -Closely monitor CBC -Cardiology note reviewed, statin she showed atorvastatin 80 mg, continue aspirin, hold Plavix, started on farxiga -40 IV Lasix twice a day -Monitor magnesium levels very closely -Cardiology consulted -Likely has hepatic congestion from systolic heart failure -Continue to monitor urine output, I's and O's -Continue home insulin and sliding scale insulin, hold rest of the oral and injectable antidiabetics Chronic: CAD status post CABG Peripheral arterial disease Hypertension Dyslipidemia COPD, not in exacerbation DVT ppx: SCDs Code status: Full code Anticipated discharge place: Pending clinical course Anticipated discharge time: Pending clinical course Objective - Vital Signs Vital signs: Vital Signs Temp 98.2 F 01/27/23 07:43 Pulse 98 01/27/23 08:34 Resp 16 01/27/23 07:43 BP 126/75 01/27/23 07:43 Pulse Ox 99 01/27/23 07:43 FiO2 Intake & Output 01/26/23 01/27/23 01/27/23 18:59 06:59 18:59 Weight 97.522 kg - Labs CBC & Chem 7: 01/27/23 05:50 01/27/23 05:50 Labs: Abnormal Lab Results - Last 24 Hours (Table) 01/26/23 01/26/23 01/26/23 Range/Units 14:16 14:16 14:16 RBC 3.77 L (4.30-5.90) m/uL Hgb 7.3 L (13.0-17.5) gm/dL Hct 26.1 L (39.0-53.0) % MCV 69.2 L (80.0-100.0) fL MCH 19.4 L (25.0-35.0) pg MCHC 28.0 L (31.0-37.0) g/dL RDW 18.2 H (11.5-15.5) % NRBC/100 WBC Diff (0.00-0.01) X 10*3/uL Hypochromasia (manual) Microcytosis (manual) Elliptocytes Schistocytes Retic Count (0.5-2.0) % PT 13.9 H (10.0-12.5) sec INR 1.3 H (<1.2) Sodium 135 L (137-145) mmol/L Carbon Dioxide 20 L (22-30) mmol/L Anion Gap (4.00-12.00) mmol/L BUN 37 H (9-20) mg/dL Creatinine 1.35 H (0.66-1.25) mg/dL Est GFR (CKD-EPI) (>=60) BUN/Creatinine Ratio (12.00-20.00) Ratio Glucose 171 H (74-99) mg/dL POC Glucose (mg/dL) (70-110) mg/dL Hemoglobin A1c (<=6.0) % Calcium (8.7-10.3) mg/dL Magnesium 0.9 L* (1.6-2.3) mg/dL Iron (65-175) UG/DL TIBC (228-460) UG/DL % Saturation (15.00-50.00) Transferrin (204.0-354.0) mg/dL Ferritin (22.0-322.0) ng/mL Albumin (3.8-4.9) d/dL Albumin/Globulin Ratio (1.60-3.17) Ratio Urine Protein (Negative) Crossmatch 01/26/23 01/26/23 01/26/23 Range/Units 14:16 14:16 19:17 RBC (4.30-5.90) m/uL Hgb (13.0-17.5) gm/dL Hct (39.0-53.0) % MCV (80.0-100.0) fL MCH (25.0-35.0) pg MCHC (31.0-37.0) g/dL RDW (11.5-15.5) % NRBC/100 WBC Diff (0.00-0.01) X 10*3/uL Hypochromasia (manual) Microcytosis (manual) Elliptocytes Schistocytes Retic Count 2.3 H (0.5-2.0) % PT (10.0-12.5) sec INR (<1.2) Sodium (137-145) mmol/L Carbon Dioxide (22-30) mmol/L Anion Gap (4.00-12.00) mmol/L BUN (9-20) mg/dL Creatinine (0.66-1.25) mg/dL Est GFR (CKD-EPI) (>=60) BUN/Creatinine Ratio (12.00-20.00) Ratio Glucose (74-99) mg/dL POC Glucose (mg/dL) 202 H (70-110) mg/dL Hemoglobin A1c (<=6.0) % Calcium (8.7-10.3) mg/dL Magnesium (1.6-2.3) mg/dL Iron (65-175) UG/DL TIBC (228-460) UG/DL % Saturation (15.00-50.00) Transferrin (204.0-354.0) mg/dL Ferritin (22.0-322.0) ng/mL Albumin (3.8-4.9) d/dL Albumin/Globulin Ratio (1.60-3.17) Ratio Urine Protein (Negative) Crossmatch See Detail 01/26/23 01/26/23 01/26/23 Range/Units 21:27 21:27 22:24 RBC (4.30-5.90) m/uL Hgb (13.0-17.5) gm/dL Hct (39.0-53.0) % MCV (80.0-100.0) fL MCH (25.0-35.0) pg MCHC (31.0-37.0) g/dL RDW (11.5-15.5) % NRBC/100 WBC Diff (0.00-0.01) X 10*3/uL Hypochromasia (manual) Microcytosis (manual) Elliptocytes Schistocytes Retic Count (0.5-2.0) % PT (10.0-12.5) sec INR (<1.2) Sodium (137-145) mmol/L Carbon Dioxide (22-30) mmol/L Anion Gap (4.00-12.00) mmol/L BUN (9-20) mg/dL Creatinine (0.66-1.25) mg/dL Est GFR (CKD-EPI) (>=60) BUN/Creatinine Ratio (12.00-20.00) Ratio Glucose (74-99) mg/dL POC Glucose (mg/dL) (70-110) mg/dL Hemoglobin A1c (<=6.0) % Calcium (8.7-10.3) mg/dL Magnesium (1.6-2.3) mg/dL Iron 13 L (65-175) UG/DL TIBC 525 H (228-460) UG/DL % Saturation 2.48 L (15.00-50.00) Transferrin 375.0 H 373.0 H (204.0-354.0) mg/dL Ferritin 17.4 L (22.0-322.0) ng/mL Albumin (3.8-4.9) d/dL Albumin/Globulin Ratio (1.60-3.17) Ratio Urine Protein Trace H (Negative) Crossmatch 01/27/23 01/27/23 01/27/23 Range/Units 05:50 05:50 05:50 RBC 3.47 L (4.30-5.90) m/uL Hgb 6.6 H* (13.0-17.5) gm/dL Hct 23.4 L (39.0-53.0) % MCV 67.4 L (80.0-100.0) fL MCH 19.0 L (25.0-35.0) pg MCHC 28.2 L (31.0-37.0) g/dL RDW 19.2 H (11.5-15.5) % NRBC/100 WBC Diff 0.02 H (0.00-0.01) X 10*3/uL Hypochromasia (manual) 3+ A Microcytosis (manual) 3+ A Elliptocytes 2+ A Schistocytes 1+ A Retic Count (0.5-2.0) % PT (10.0-12.5) sec INR (<1.2) Sodium 133 L (137-145) mmol/L Carbon Dioxide 19.4 L (22-30) mmol/L Anion Gap 13.60 H (4.00-12.00) mmol/L BUN 34.3 H (9-20) mg/dL Creatinine (0.66-1.25) mg/dL Est GFR (CKD-EPI) 55 L (>=60) BUN/Creatinine Ratio 24.50 H (12.00-20.00) Ratio Glucose (74-99) mg/dL POC Glucose (mg/dL) (70-110) mg/dL Hemoglobin A1c 7.2 H (<=6.0) % Calcium 8.5 L (8.7-10.3) mg/dL Magnesium (1.6-2.3) mg/dL Iron (65-175) UG/DL TIBC (228-460) UG/DL % Saturation (15.00-50.00) Transferrin (204.0-354.0) mg/dL Ferritin (22.0-322.0) ng/mL Albumin 3.7 L (3.8-4.9) d/dL Albumin/Globulin Ratio 1.32 L (1.60-3.17) Ratio Urine Protein (Negative) Crossmatch 01/27/23 01/27/23 01/27/23 Range/Units 05:50 07:51 12:17 RBC (4.30-5.90) m/uL Hgb (13.0-17.5) gm/dL Hct (39.0-53.0) % MCV (80.0-100.0) fL MCH (25.0-35.0) pg MCHC (31.0-37.0) g/dL RDW (11.5-15.5) % NRBC/100 WBC Diff (0.00-0.01) X 10*3/uL Hypochromasia (manual) Microcytosis (manual) Elliptocytes Schistocytes Retic Count (0.5-2.0) % PT (10.0-12.5) sec INR (<1.2) Sodium (137-145) mmol/L Carbon Dioxide (22-30) mmol/L Anion Gap (4.00-12.00) mmol/L BUN (9-20) mg/dL Creatinine (0.66-1.25) mg/dL Est GFR (CKD-EPI) (>=60) BUN/Creatinine Ratio (12.00-20.00) Ratio Glucose (74-99) mg/dL POC Glucose (mg/dL) 115 H 293 H (70-110) mg/dL Hemoglobin A1c (<=6.0) % Calcium (8.7-10.3) mg/dL Magnesium 0.9 L* (1.6-2.3) mg/dL Iron (65-175) UG/DL TIBC (228-460) UG/DL % Saturation (15.00-50.00) Transferrin (204.0-354.0) mg/dL Ferritin (22.0-322.0) ng/mL Albumin (3.8-4.9) d/dL Albumin/Globulin Ratio (1.60-3.17) Ratio Urine Protein (Negative) Crossmatch
[2023-01-27 17:31] LABS: Glucose,Whole Blood 143 mg/dL (70-110)
[2023-01-27 19:25] LABS: Glucose,Whole Blood 213 mg/dL (70-110)
[2023-01-27] MEDS: ASPIRIN 81 MG PO SCH (19:59)
[2023-01-27] MEDS: ATORVASTATIN 80 MG TAB PO SCH (19:59)
[2023-01-27] MEDS: guaiFENesin-DM 100-10MG/5ML 10 ML CUP PO PRN (20:00)
[2023-01-27] MEDS: VIT A,C & E-LUTEIN-MINERALS 1 EACH TAB PO SCH (20:01)
[2023-01-28] MEDS: guaiFENesin-DM 100-10MG/5ML 10 ML CUP PO PRN ×2 (02:01→22:25)
[2023-01-28 05:00] LABS: Glucose,Whole Blood 195 mg/dL (70-110)
[2023-01-28] MEDS: INSULIN ASPART (NovoLOG) 100 UNIT/ML VIAL SQ SCH ×4 (06:36→19:35)
[2023-01-28] MEDS: PANTOPRAZOLE 40 MG TABLET PO SCH ×2 (06:36→17:30)
[2023-01-28] MEDS: SYMBICORT 80-4.5 MCG INHALER INHALATION SCH ×2 (08:32→19:39)
[2023-01-28] MEDS: IPRATROPIUM 0.5 MG/2.5 ML NEBU INHALATION SCH ×4 (08:32→19:39)
[2023-01-28] MEDS: CYANOCOBALAMIN 500 MCG TAB PO SCH (09:18)
[2023-01-28] MEDS: MAGNESIUM OXIDE 400 MG TAB PO SCH (09:19)
[2023-01-28] MEDS: METOPROLOL SUCCINATE (ER) 25 MG TAB.ER.24H PO SCH (09:19)
[2023-01-28] MEDS: DAPAGLIFLOZIN PROPANEDIOL 10 MG TABLET PO SCH (09:19)
[2023-01-28] MEDS: CHOLECALCIFEROL 25 MCG (1000 IU) TABLET PO SCH (09:19)
[2023-01-28] MEDS: MULTIVITAMINS, THERA 1 EACH TAB PO SCH (09:19)
[2023-01-28] MEDS: NICOTINE 21MG/24HR PATCH TRANSDERM SCH (09:20)
[2023-01-28] MEDS: DORZOLAMIDE HCL 2% DROPS 10 ML BTL BOTH EYES SCH ×2 (09:20→22:10)
[2023-01-28] MEDS: INSULIN DETEMIR (LEVEMIR) 100 UNIT/ML SYR SQ SCH (09:20)
[2023-01-28] MEDS: FUROSEMIDE 10 MG/ML 4 ML VIAL IV SCH (09:21)
[2023-01-28 11:09] LABS: Basophils # (A) 0.07 X 10*3/uL (0.00-0.10); Basophils % (A) 0.9 %; Eosinophils % (A) 2.5 %; HCT 26.8 % (39.6-50.0); HGB 7.6 d/dL (13.0-17.0); Lymphocytes # (A) 1.26 X 10*3/uL (0.90-5.00); MCH 19.8 pg (27.0-32.0); MCHC 28.4 d/dL (32.0-37.0); Monocytes # (A) 0.84 X 10*3/uL (0.20-1.00); Monocytes % (A) 10.6 %; NRBC Per 100 WBC 0 X 10*3/uL (0.00-0.01); Neutrophils % (A) 69.7 %; Platelet Count 199 X 10*3/uL (140-440); RBC 3.83 X 10*6/uL (4.40-5.60); RDW 21.2 % (11.5-14.5); WBC 7.89 X 10*3/uL (4.50-10.00)
[2023-01-28 11:18] LABS: BUN/Creat Ratio 20.44 Ratio (12.00-20.00); Blood Urea Nitrogen 32.7 mg/dL (9.0-27.0); Calcium 8.7 mg/dL (8.7-10.3); Carbon Dioxide 20.4 mmol/L (21.6-31.8); Chloride 100 mmol/L (96-109); Glucose 135 mg/dL (70-110); Magnesium 2.1 mg/dL (1.5-2.4); Potassium 4.4 mmol/L (3.5-5.5); Sodium 135 mmol/L (135-145)
[2023-01-28 11:24] LABS: Glucose,Whole Blood 189 mg/dL (70-110)
--- NOTE | 2023-01-28 11:49 | P.PN ---
Subjective Progress Note Date: 01/28/23 History of CAD, CABG, heart failure with reduced EF in exacerbation History of present illness: History of present illness: This is a 67-year-old male previously seen in the office by Dr. Ever Sanchez and currently follows with Dr. Sarkar in [facility]. He has a past medical histo ry of coronary artery disease status post three-vessel CABG 2 years ago, cardiomyopathy with EF of 35%, peripheral vascular disease status post lower extremity stents, diabetes mellitus, hypertension, hyperlipidemia and gastroesophageal reflux disease, remote history of tobacco use. We have been as ked to evaluate the patient for CAD, CABG, heart failure with reduced EF and exacerbation. Patient states he saw his PCP because he was feeling tired and fatigued and had lab work done because of abnormal lab results he was sent into the hospital for evaluation. He has history that he has had a transfusion a few months ago and stenting of his lower extremity had to be postponed. Patient is seen today in the emergency center waiting for a bed on the [facility] floor. Patient is status post magnesium replacement and started on IV Lasix 40 mg every 12 hours. EKG sinus rhythm with right bundle branch block, 88 bpm Chest x-ray: Cardiomegaly, pulmonary vascular congestion and bilateral pleural e ffusions. Correlate for heart failure. CAT scan of the abdomen and pelvis correlate for third spacing of fluid overload given generalized anasarca [id number] bilateral pleural effusions, mild to moderate abdominal ascites. Findings suggest acute kidney injury possibly contrast-induced nephropathy and renal dysfunction correlate to exclude underlying pyelonephritis. Bladder wall thickening correlate for cystitis. Left-sided colonic diverticulosis without diverticulitis. Liver ultrasound hepatomegaly without overt cirrhotic appearance. Small amount of. Hepatic ascites. Post-prostatectomy changes. Simple right renal cyst. WBC 7.1, hemoglobin 7.3, platelet count 166. INR 1.3. Sodium 133, potassium 4.3, BUN 34 creatinine 1.4. Blood sugar 115. Magnesium 0.9. Iron 13, TIBC 525 , iron saturation 2.48, transferrin 373. Liver function within normal limits. Troponin negative 3. Urinalysis trace protein. Home cardiac medications: Aspirin 81 mg daily, Plavix 75 mg daily, Lasix 20 mg daily, lisinopril 2.5 mg at bedtime, metoprolol tartrate 25 mg daily, pravastatin 80 mg at bedtime 01/28 Patient is seen today in follow-up on the [facility] floor. He is scheduled for upper and lower endoscopy on Wednesday with GI. Patient denies having any shortness of breath and no chest pain or chest tightness. He continues to have a cough. No nausea or vomiting. No palpitations. Heart rate has been in the 70s to 90s, blood pressure 121/59, pulse ox 90% on room air. Patient is curre ntly on IV Lasix 40 mg every 12 hours. Blood work at the time of this dictation is pending. Echocardiogram reveals moderate to severe impaired left ventricular systolic function with segmental wall motion abnormality and EF of 35-40%. Mild to moderate mitral with mild tricuspid regurgitation and mild pulmonary hypertension. Records from Dr. Srakar' office reveals: Echocardiogram performed 04/01/2022 EF 35%, mild to moderate TR, mild aortic sclerosis. Cardiac catheterization 09/2021 reveals EF 30%, 60% stenosis of the left main, 60% mid LAD, 90% of the distal LAD, 95% of the left circumflex, 95% of the mid RCA, total occlusion of the distal RCA. Stress test 08/2020 and 37%, no stress induced ischemia. Large area of chronic myocardial infarction involving the inferior and inferior lateral wall of the left ventricle. Cardiovascular surgery: BURLESON to LAD, reverse saphenous to OM branch of the circumflex, reverse saphenous vein graft to the posterior branch of the RCA, clipping of the LA appendage 10/2021 Peripheral artery disease, aortogram with bilateral lower extremity angiogra phy. Percutaneous trans-arterial balloon angioplasty with stent 08/2020 Right common and profunda femoris thrombo-endarterectomy with patch angioplasty Physical examination: Gen: This is a 67-year-old male resting in bed and appears to be in no acute distress. VS: reviewed HEENT: Head is atraumatic, normocephalic. Pupils equal, round. Sclerae is anicteric. NECK: Supple. No JVD. . LUNGS: Clear to auscultation. No wheezes or rhonchi. No intercostal retractions. HEART: Regular rate and rhythm. 2/6 systolic murmur. ABDOMEN: Soft No tenderness. EXTREMITIES: No pedal edema. No calf tenderness. NEUROLOGICAL: Patient is awake, alert and oriented x3. Assessment: Acute on chronic HFrEF Anemia scheduled for EGD and colonoscopy 01/29 Hypomagnesemia Ascites History of coronary artery disease status post CABG Peripheral vascular disease with recent stent Diabetes Hypertension Hyperlipidemia Gastroesophageal reflux disease Remote history of tobacco use Plan: Continue patient's home cardiac medications with the following changes: Change statin to Lipitor 80 mg daily, change metoprolol tartrate to Toprol-XL 25 mg daily Plavix is on hold due to possible GI bleed but continued on aspirin 81 mg daily Transition IV Lasix to oral Continue patient on Farxiga 10 mg daily Plan to optimize medical treatment Further recommendations to follow based upon clinical course Nurse practitioner note has been reviewed, I agree with documented findings and plan of care. Patient was seen and examined. Objective - Vital Signs Vital signs: Vital Signs Temp 97.5 F L 01/27/23 23:48 Pulse 74 01/27/23 23:48 Resp 18 01/27/23 23:48 BP 102/56 01/28/23 00:01 Pulse Ox 100 01/27/23 23:48 FiO2 Intake & Output 01/27/23 01/28/23 01/28/23 18:59 06:59 18:59 Intake Total 310 700 Balance 310 700 Weight 97.522 kg 96.5 kg Intake: Oral 700 Blood Product 310 Rc As-1 Unit 310 [id number] - Labs CBC & Chem 7: 01/28/23 06:33 01/28/23 06:33 Labs: Abnormal Lab Results - Last 24 Hours (Table) 01/26/23 01/27/23 01/27/23 Range/Units 14:16 05:50 05:50 RBC 3.47 L (4.40-5.60) X 10*6/uL Hgb 6.6 H* (13.0-17.0) d/dL Hct 23.4 L (39.6-50.0) % MCV 67.4 L (80.0-97.0) FL MCH 19.0 L (27.0-32.0) pg MCHC 28.2 L (32.0-37.0) d/dL RDW 19.2 H (11.5-14.5) % NRBC/100 WBC Diff 0.02 H (0.00-0.01) X 10*3/uL Hypochromasia (manual) 3+ A Microcytosis (manual) 3+ A Elliptocytes 2+ A Schistocytes 1+ A Sodium (135-145) mmol/L Carbon Dioxide (21.6-31.8) mmol/L Anion Gap (4.00-12.00) mmol/L BUN (9.0-27.0) mg/dL Est GFR (CKD-EPI) (>=60) BUN/Creatinine Ratio (12.00-20.00) Ratio POC Glucose (mg/dL) (70-110) mg/dL Hemoglobin A1c 7.2 H (<=6.0) % Calcium (8.7-10.3) mg/dL Magnesium (1.6-2.3) mg/dL Albumin (3.8-4.9) d/dL Albumin/Globulin Ratio (1.60-3.17) Ratio Crossmatch See Detail 01/27/23 01/27/23 01/27/23 Range/Units 05:50 05:50 12:17 RBC (4.40-5.60) X 10*6/uL Hgb (13.0-17.0) d/dL Hct (39.6-50.0) % MCV (80.0-97.0) FL MCH (27.0-32.0) pg MCHC (32.0-37.0) d/dL RDW (11.5-14.5) % NRBC/100 WBC Diff (0.00-0.01) X 10*3/uL Hypochromasia (manual) Microcytosis (manual) Elliptocytes Schistocytes Sodium 133 L (135-145) mmol/L Carbon Dioxide 19.4 L (21.6-31.8) mmol/L Anion Gap 13.60 H (4.00-12.00) mmol/L BUN 34.3 H (9.0-27.0) mg/dL Est GFR (CKD-EPI) 55 L (>=60) BUN/Creatinine Ratio 24.50 H (12.00-20.00) Ratio POC Glucose (mg/dL) 293 H (70-110) mg/dL Hemoglobin A1c (<=6.0) % Calcium 8.5 L (8.7-10.3) mg/dL Magnesium 0.9 L* (1.6-2.3) mg/dL Albumin 3.7 L (3.8-4.9) d/dL Albumin/Globulin Ratio 1.32 L (1.60-3.17) Ratio Crossmatch 01/27/23 01/27/23 01/28/23 Range/Units 17:29 19:24 04:58 RBC (4.40-5.60) X 10*6/uL Hgb (13.0-17.0) d/dL Hct (39.6-50.0) % MCV (80.0-97.0) FL MCH (27.0-32.0) pg MCHC (32.0-37.0) d/dL RDW (11.5-14.5) % NRBC/100 WBC Diff (0.00-0.01) X 10*3/uL Hypochromasia (manual) Microcytosis (manual) Elliptocytes Schistocytes Sodium (135-145) mmol/L Carbon Dioxide (21.6-31.8) mmol/L Anion Gap (4.00-12.00) mmol/L BUN (9.0-27.0) mg/dL Est GFR (CKD-EPI) (>=60) BUN/Creatinine Ratio (12.00-20.00) Ratio POC Glucose (mg/dL) 143 H 213 H 195 H (70-110) mg/dL Hemoglobin A1c (<=6.0) % Calcium (8.7-10.3) mg/dL Magnesium (1.6-2.3) mg/dL Albumin (3.8-4.9) d/dL Albumin/Globulin Ratio (1.60-3.17) Ratio Crossmatch
--- NOTE | 2023-01-28 14:40 | P.PN ---
Subjective Progress Note Date: 01/28/23 Hospital Course: Patient is a 67-year-old male with history of CAD status post CABG, peripheral arterial disease, hypertension, diabetes, dyslipidemia, COPD presenting with generalized weakness. In the ED, temperature was 98.3, pulse 89, respiratory rate 20, blood pressure 105/59, saturating at 99% on room air. WBC 7.1, hemoglobin 7.3, MCV 69.2, platelet 166, INR 1.3, sodium 135, bicarb 20, BUN 37, creatinine 1.35, glucose 171, magnesium 0.9, troponin 0.03, proBNP 4300. EKG independently interpreted shows sinus rhythm with right bundle branch block, and first-degree AV block, and frequent PVCs. CT abdomen and pelvis shows generalized anasarca, mild to moderate abdominal pelvic ascites, small to moderate bilateral pleural effusions, possible acute kidney injury, circumferential bladder wall thickening, left-sided colonic diverticulosis. Patient being admitted for generalized anasarca as well as microcytic anemia, generalized weakness. GI and cardiology consulted. Her history is consistent with iron deficiency anemia. Hemoglobin further dropped. Requiring 1 unit of PRBCs. Also in acute on chronic CHF exacerbation, on IV Lasix. Patient will likely need EGD and colonoscopy tomorrow. Echocardiogram showed moderate to severely impaired left systolic function, likely 35-40%, mild to moderate mitral and mild tricuspid regurgitation, mild pulmonary hypertension. Liver ultrasound showed hepatomegaly without overt cirrhotic appearance. Subjective: He is seen and examined at bedside. No acute events overnight. Overall feels better today. Pertinent positives and negatives as discussed above, a complete review of systems was performed and all other systems are negative. Vitals Signs Reviewed. General: nontoxic, no distress, appears at stated age, chronically ill-appearing Derm: warm, dry Head: atraumatic, normocephalic, symmetric Eyes: EOMI, no lid lag, anicteric sclera, pupils equal round reactive to light, right sub-conjunctival hemorrhage ENT: Nose and ears atraumatic Neck: No thyromegaly, supple Mouth: no lip lesion, mucus membranes moist Cardiovascular: S1S2 reg, no murmur, trace peripheral edema Lungs: Bibasilar rales, no wheeze, no accessory muscle use Abdominal: soft, diffuse tenderness to palpation, no guarding, no appreciable organomegaly Ext: no gross muscle atrophy, muscle strength muscle strength 5 out of 5 in all 4 extremities, no contractures Neuro: CN II-XII grossly intact Psych: Alert, oriented, appropriate affect Data Reviewed Today: Pertinent Labs: Hemoglobin hemoglobin 7.6, creatinine 1.6, magnesium 2.1, blood glucose 135-213 Imaging: No new imaging. Assessment and Plan: Acute iron deficiency anemia status post 1 unit of PRBCs Generalized anasarca Systolic heart failure exacerbation acute on chronic Severe Hypomagnesemia Acute on chronic kidney injury Insulin-dependent diabetes -GI following, likely colonoscopy and EGD tomorrow -Closely monitor CBC -Cardiology note reviewed, statin change to atorvastatin 80 mg, continue aspirin, hold Plavix, started on farxiga - IV Lasix which showed oral 20 mg daily -Monitor magnesium levels very closely -Likely has hepatic congestion from systolic heart failure -Continue to monitor urine output, I's and O's -Continue home insulin and sliding scale insulin, hold rest of the oral and injectable antidiabetics Chronic: CAD status post CABG Peripheral arterial disease Hypertension Dyslipidemia COPD, not in exacerbation DVT ppx: SCDs Code status: Full code Anticipated discharge place: Pending clinical course Anticipated discharge time: Pending clinical course Objective - Vital Signs Vital signs: Vital Signs Temp 98.1 F 01/28/23 14:02 Pulse 59 L 01/28/23 14:02 Resp 17 01/28/23 14:02 BP 111/60 01/28/23 14:02 Pulse Ox 98 01/28/23 14:02 FiO2 Intake & Output 01/27/23 01/28/23 01/28/23 18:59 06:59 18:59 Intake Total 310 700 240 Balance 310 700 240 Weight 97.522 kg 96.5 kg Intake: Oral 700 240 Blood Product 310 Rc As-1 Unit 310 [id number] - Labs CBC & Chem 7: 01/28/23 06:33 01/28/23 06:33 Labs: Abnormal Lab Results - Last 24 Hours (Table) 01/26/23 01/27/23 01/27/23 Range/Units 14:16 17:29 19:24 RBC (4.40-5.60) X 10*6/uL Hgb (13.0-17.0) d/dL Hct (39.6-50.0) % MCV (80.0-97.0) FL MCH (27.0-32.0) pg MCHC (32.0-37.0) d/dL RDW (11.5-14.5) % Carbon Dioxide (21.6-31.8) mmol/L Anion Gap (4.00-12.00) mmol/L BUN (9.0-27.0) mg/dL Creatinine (0.6-1.5) mg/dL Est GFR (CKD-EPI) (>=60) BUN/Creatinine Ratio (12.00-20.00) Ratio Glucose (70-110) mg/dL POC Glucose (mg/dL) 143 H 213 H (70-110) mg/dL Crossmatch See Detail 01/28/23 01/28/23 01/28/23 Range/Units 04:58 06:33 06:33 RBC 3.83 L (4.40-5.60) X 10*6/uL Hgb 7.6 L (13.0-17.0) d/dL Hct 26.8 L (39.6-50.0) % MCV 70.0 L (80.0-97.0) FL MCH 19.8 L (27.0-32.0) pg MCHC 28.4 L (32.0-37.0) d/dL RDW 21.2 H (11.5-14.5) % Carbon Dioxide 20.4 L (21.6-31.8) mmol/L Anion Gap 14.60 H (4.00-12.00) mmol/L BUN 32.7 H (9.0-27.0) mg/dL Creatinine 1.6 H (0.6-1.5) mg/dL Est GFR (CKD-EPI) 47 L (>=60) BUN/Creatinine Ratio 20.44 H (12.00-20.00) Ratio Glucose 135 H (70-110) mg/dL POC Glucose (mg/dL) 195 H (70-110) mg/dL Crossmatch 01/28/23 Range/Units 11:17 RBC (4.40-5.60) X 10*6/uL Hgb (13.0-17.0) d/dL Hct (39.6-50.0) % MCV (80.0-97.0) FL MCH (27.0-32.0) pg MCHC (32.0-37.0) d/dL RDW (11.5-14.5) % Carbon Dioxide (21.6-31.8) mmol/L Anion Gap (4.00-12.00) mmol/L BUN (9.0-27.0) mg/dL Creatinine (0.6-1.5) mg/dL Est GFR (CKD-EPI) (>=60) BUN/Creatinine Ratio (12.00-20.00) Ratio Glucose (70-110) mg/dL POC Glucose (mg/dL) 189 H (70-110) mg/dL Crossmatch
[2023-01-28] MEDS ORDERED: PEG 3350 (236 GM/BTL) + LYTES 4,000 ML BOTTLE PO ONE (15:00)
[2023-01-28 16:20] LABS: Glucose,Whole Blood 94 mg/dL (70-110)
--- NOTE | 2023-01-28 16:23 | P.PN ---
Subjective Progress Note Date: 01/28/23 Principal diagnosis: Anemia This is a 67-year-old male who presented to the emergency department directed by his PCP for abnormal labs. She has multiple comorbidities including coronary artery disease status post CABG, congestive heart failure, peripheral arterial disease status post stenting, diabetes mellitus, GERD, hyperlipidemia, hypertension, and former smoker. He believes that his hemoglobin was low. States that he was supposed to have undergo peripheral arterial intervention a couple months ago however he was told at that time that his hemoglobin was very low and it was canceled. He states that he had to get 4 units of blood. This was all done at [facility]. He is unsure of his last colonoscopy believes it to be less than 10 years however states that they did not do EGD or colonoscopy at [facility] as there was no evidence of GI bleed. Supposedly patient was told he could have it done outpatient however he never followed up. He does take aspirin 81 mg daily as well as Plavix 75 mg daily but no other anticoagulation. He denies any blood in his stool, no black stool, no nausea or vomiting and no significant abdominal pain. Denies any history of peptic ulcer disease or regular NSAID use. He does state that he has. Umbilical discomfort recently. He did undergo CT abdomen and pelvis with contrast reporting third spacing of fluid overload state, and generalized anasarca changes along with [id number] bilateral pleural effusions. Mild to moderate abdominal pelvic ascites. No excretion of contrast from kidneys and delayed scan findings suggest acute kidney injury, circumferential bladder wall thickening and left- sided colonic diverticulosis without evidence of acute diverticulitis. Admitting hemoglobin 7.3 hematocrit 26 platelet count 166,000, labs consistent with microcytic anemia. Patient also had iron studies consistent with iron deficient anemia. Patient did have a drop in his hemoglobin today to 6.6 but again denies any abdominal pain, no nausea or vomiting no black stool or blood in his stool. 01/28/2023 Patient seen and examined today as a follow-up for anemia. He received 1 unit of blood yesterday with a repeat hemoglobin of 7.6 today. He continues to deny any black stool or blood in his stool. He states he did have a bowel movement this morning. He denies any abdominal pain, nausea or vomiting. Patient was able to give a stool sample stool occult blood negative. Objective - Vital Signs Vital signs: Vital Signs Temp 97.4 F L 01/28/23 07:25 Pulse 90 01/28/23 08:57 Resp 17 01/28/23 08:57 BP 121/59 01/28/23 07:25 Pulse Ox 98 01/28/23 07:25 FiO2 Intake & Output 01/27/23 01/28/23 01/28/23 18:59 06:59 18:59 Intake Total 310 700 240 Balance 310 700 240 Weight 97.522 kg 96.5 kg Intake: Oral 700 240 Blood Product 310 Rc As-1 Unit 310 [id number] - Exam General appearance: The patient is alert, oriented, appears in no acute distress. HET: Head is normocephalic and atraumatic. Conjunctiva pink. Sclera anicteric. Neck: Supple without lymphadenopathy. Abdomen: Soft, nontender, nondistended with bowel sounds. No guarding or rigidity. Extremities: Normal skin color and turgor. No pedal edema Skin: No rashes, no jaundice Neurological: No focal deficits. Alert and oriented. - Labs CBC & Chem 7: 01/28/23 06:33 01/28/23 06:33 Labs: Abnormal Lab Results - Last 24 Hours (Table) 01/26/23 01/27/23 01/27/23 Range/Units 14:16 12:17 17:29 RBC (4.40-5.60) X 10*6/uL Hgb (13.0-17.0) d/dL Hct (39.6-50.0) % MCV (80.0-97.0) FL MCH (27.0-32.0) pg MCHC (32.0-37.0) d/dL RDW (11.5-14.5) % Carbon Dioxide (21.6-31.8) mmol/L Anion Gap (4.00-12.00) mmol/L BUN (9.0-27.0) mg/dL Creatinine (0.6-1.5) mg/dL Est GFR (CKD-EPI) (>=60) BUN/Creatinine Ratio (12.00-20.00) Ratio Glucose (70-110) mg/dL POC Glucose (mg/dL) 293 H 143 H (70-110) mg/dL Crossmatch See Detail 01/27/23 01/28/2323 Range/Units 19:24 04:58 06:33 RBC 3.83 L (4.40-5.60) X 10*6/uL Hgb 7.6 L (13.0-17.0) d/dL Hct 26.8 L (39.6-50.0) % MCV 70.0 L (80.0-97.0) FL MCH 19.8 L (27.0-32.0) pg MCHC 28.4 L (32.0-37.0) d/dL RDW 21.2 H (11.5-14.5) % Carbon Dioxide (21.6-31.8) mmol/L Anion Gap (4.00-12.00) mmol/L BUN (9.0-27.0) mg/dL Creatinine (0.6-1.5) mg/dL Est GFR (CKD-EPI) (>=60) BUN/Creatinine Ratio (12.00-20.00) Ratio Glucose (70-110) mg/dL POC Glucose (mg/dL) 213 H 195 H (70-110) mg/dL Crossmatch 01/28/23 01/28/23 Range/Units 06:33 11:17 RBC (4.40-5.60) X 10*6/uL Hgb (13.0-17.0) d/dL Hct (39.6-50.0) % MCV (80.0-97.0) FL MCH (27.0-32.0) pg MCHC (32.0-37.0) d/dL RDW (11.5-14.5) % Carbon Dioxide 20.4 L (21.6-31.8) mmol/L Anion Gap 14.60 H (4.00-12.00) mmol/L BUN 32.7 H (9.0-27.0) mg/dL Creatinine 1.6 H (0.6-1.5) mg/dL Est GFR (CKD-EPI) 47 L (>=60) BUN/Creatinine Ratio 20.44 H (12.00-20.00) Ratio Glucose 135 H (70-110) mg/dL POC Glucose (mg/dL) 189 H (70-110) mg/dL Crossmatch Assessment and Plan (1) Microcytic anemia Narrative/Plan: Iumciwjyxr-[id number] with multiple comorbidities. Outpatient blood work done was told to come to the emergency department for low hemoglobin. Patient was recently seen and cleared [place] and was to undergo peripheral arterial disease however at that time was also found to be anemic with no signs or symptoms of GI bleed. He never underwent EGD and colonoscopy during that hospitalization. Unsure of last EGD colonoscopy (less than 10 years. Denies any black stool, blood in stool rectal bleeding, or hematemesis. No history of GI bleed in the past. He is on aspirin 81 mg daily and Plavix 75 mg daily, no NSAID use. Patient presents with microcytic anemia, iron studies are consistent with an iron deficiency anemia with a drop in hemoglobin today to 6.6. Unclear etiology of anemia however need to consider possible GI bleed. Would recommend holding Plavix, Protonix for GI prophylaxis, avoid NSAID use and recommend EGD and colonoscopy at some point. Current Visit: Yes Status: Acute Code(s): D50.9 - IRON DEFICIENCY ANEMIA, UNSPECIFIED SNOMED Code(s): 056737499 (2) Coronary artery disease Current Visit: Yes Status: Acute Code(s): I25.10 - ATHSCL HEART DISEASE OF [place] CORONARY ARTERY W/O ANG PCTRS SNOMED Code(s): 20120174 (3) Heart failure Current Visit: Yes Status: Acute Code(s): I50.9 - HEART FAILURE, UNSPECIFIED SNOMED Code(s): 68371659 (4) Diabetes mellitus Current Visit: Yes Status: Acute Code(s): E11.9 - TYPE 2 DIABETES MELLITUS WITHOUT COMPLICATIONS SNOMED Code(s): 34845404 (5) Peripheral arterial disease Current Visit: Yes Status: Acute Code(s): I73.9 - PERIPHERAL VASCULAR DISEASE, UNSPECIFIED SNOMED Code(s): 870367797 Plan: 1. Continue symptomatic and supportive care 2. Daily CBC, transfuse for hemoglobin less than 7 3. Hold Plavix 4. Protonix 40 mg daily for GI prophylaxis 5. Clear liquid diet, Nothing by mouth after midnight 6. Bowel prep this evening 8. EGD and colonoscopy tomorrow Thank you for this consultation, we will continue to follow. Dr. Devendra Sanchez I agree with the dictator's note, documented as a scribe by Dominga Williamson.
[2023-01-28 19:06] LABS: Glucose,Whole Blood 105 mg/dL (70-110)
[2023-01-28] MEDS: ATORVASTATIN 80 MG TAB PO SCH (22:08)
[2023-01-28] MEDS: ASPIRIN 81 MG PO SCH (22:08)
[2023-01-28] MEDS: VIT A,C & E-LUTEIN-MINERALS 1 EACH TAB PO SCH (22:25)
[2023-01-29 05:53] LABS: Glucose,Whole Blood 81 mg/dL (70-110)
[2023-01-29] MEDS: PANTOPRAZOLE 40 MG TABLET PO SCH ×2 (06:10→18:59)
[2023-01-29] MEDS: INSULIN ASPART (NovoLOG) 100 UNIT/ML VIAL SQ SCH ×4 (06:10→20:10)
[2023-01-29] MEDS: SYMBICORT 80-4.5 MCG INHALER INHALATION SCH ×2 (07:59→20:18)
[2023-01-29] MEDS: IPRATROPIUM 0.5 MG/2.5 ML NEBU INHALATION SCH ×4 (08:00→20:18)
--- NOTE | 2023-01-29 09:06 | P.PN ---
Subjective Progress Note Date: 01/29/23 History of CAD, CABG, heart failure with reduced EF in exacerbation History of present illness: History of present illness: This is a 67-year-old male previously seen in the office by Dr. Ever Sanchez and currently follows with Dr. Sarkar in [facility]. He has a past medical histo ry of coronary artery disease status post three-vessel CABG 2 years ago, cardiomyopathy with EF of 35%, peripheral vascular disease status post lower extremity stents, diabetes mellitus, hypertension, hyperlipidemia and gastroesophageal reflux disease, remote history of tobacco use. We have been as ked to evaluate the patient for CAD, CABG, heart failure with reduced EF and exacerbation. Patient states he saw his PCP because he was feeling tired and fatigued and had lab work done because of abnormal lab results he was sent into the hospital for evaluation. He has history that he has had a transfusion a few months ago and stenting of his lower extremity had to be postponed. Patient is seen today in the emergency center waiting for a bed on the [facility] floor. Patient is status post magnesium replacement and started on IV Lasix 40 mg every 12 hours. EKG sinus rhythm with right bundle branch block, 88 bpm Chest x-ray: Cardiomegaly, pulmonary vascular congestion and bilateral pleural e ffusions. Correlate for heart failure. CAT scan of the abdomen and pelvis correlate for third spacing of fluid overload given generalized anasarca [id number] bilateral pleural effusions, mild to moderate abdominal ascites. Findings suggest acute kidney injury possibly contrast-induced nephropathy and renal dysfunction correlate to exclude underlying pyelonephritis. Bladder wall thickening correlate for cystitis. Left-sided colonic diverticulosis without diverticulitis. Liver ultrasound hepatomegaly without overt cirrhotic appearance. Small amount of. Hepatic ascites. Post-prostatectomy changes. Simple right renal cyst. WBC 7.1, hemoglobin 7.3, platelet count 166. INR 1.3. Sodium 133, potassium 4.3, BUN 34 creatinine 1.4. Blood sugar 115. Magnesium 0.9. Iron 13, TIBC 525 , iron saturation 2.48, transferrin 373. Liver function within normal limits. Troponin negative 3. Urinalysis trace protein. Home cardiac medications: Aspirin 81 mg daily, Plavix 75 mg daily, Lasix 20 mg daily, lisinopril 2.5 mg at bedtime, metoprolol tartrate 25 mg daily, pravastatin 80 mg at bedtime 01/28 Patient is seen today in follow-up on the [facility] floor. He is scheduled for upper and lower endoscopy on Wednesday with GI. Patient denies having any shortness of breath and no chest pain or chest tightness. He continues to have a cough. No nausea or vomiting. No palpitations. Heart rate has been in the 70s to 90s, blood pressure 121/59, pulse ox 90% on room air. Patient is curre ntly on IV Lasix 40 mg every 12 hours. Blood work at the time of this dictation is pending. Echocardiogram reveals moderate to severe impaired left ventricular systolic function with segmental wall motion abnormality and EF of 35-40%. Mild to moderate mitral with mild tricuspid regurgitation and mild pulmonary hypertension. Records from Dr. Sarkar' office reveals: Echocardiogram performed 04/01/2022 EF 35%, mild to moderate TR, mild aortic sclerosis. Cardiac catheterization 09/2021 reveals EF 30%, 60% stenosis of the left main, 60% mid LAD, 90% of the distal LAD, 95% of the left circumflex, 95% of the mid RCA, total occlusion of the distal RCA. Stress test 08/2020 and 37%, no stress induced ischemia. Large area of chronic myocardial infarction involving the inferior and inferior lateral wall of the left ventricle. Cardiovascular surgery: BURLESON to LAD, reverse saphenous to OM branch of the circumflex, reverse saphenous vein graft to the posterior branch of the RCA, clipping of the LA appendage 10/2021 Peripheral artery disease, aortogram with bilateral lower extremity angiogra phy. Percutaneous trans-arterial balloon angioplasty with stent 08/2020 Right common and profunda femoris thrombo-endarterectomy with patch angioplasty 01/29 Patient is scheduled for EGD colonoscopy today. His heart rate has been in the 60s90s, blood pressure 122/71, pulse ox 90% on room air, afebrile. Patient denies having any chest pain or shortness of breath. Physical examination: Gen: This is a 67-year-old male resting in bed and appears to be in no acute distress. VS: reviewed HEENT: Head is atraumatic, normocephalic. Pupils equal, round. Sclerae is anicteric. NECK: Supple. No JVD. LUNGS: Clear to auscultation. No wheezes or rhonchi. No intercostal retractions. HEART: Regular rate and rhythm. 2/6 systolic murmur. ABDOMEN: Soft No tenderness. EXTREMITIES: No pedal edema. No calf tenderness. NEUROLOGICAL: Patient is awake, alert and oriented x3. Assessment: Acute on chronic HFrEF Anemia scheduled for EGD and colonoscopy 01/29 Hypomagnesemia status post replacement Ascites History of coronary artery disease status post CABG Peripheral vascular disease with recent stent Diabetes Hypertension Hyperlipidemia Gastroesophageal reflux disease Remote history of tobacco use Plan: Continue patient's home cardiac medications with the following changes: Change statin to Lipitor 80 mg daily, change metoprolol tartrate to Toprol-XL 25 mg daily Resume Plavix once cleared by GI Continue oral Lasix Continue Farxiga 10 mg daily Plan to optimize medical treatment At time of discharge, patient may follow-up with his ammonium nitrate crystallizer, Dr. Sarkar, in 1-2 weeks. Cardiology will sign off this case and follow on an as-needed basis. Please re consult for any new concerns. Nurse practitioner note has been reviewed, I agree with documented findings and plan of care. Patient was seen and examined. Objective - Vital Signs Vital signs: Vital Signs Temp 98.1 F 01/29/23 07:14 Pulse 96 01/29/23 07:14 Resp 16 01/29/23 07:14 BP 122/71 01/29/23 07:14 Pulse Ox 98 01/29/23 07:14 FiO2 Intake & Output 01/28/23 01/29/23 01/29/23 18:59 06:59 18:59 Intake Total 240 Balance 240 Weight 96.5 kg Intake: Oral 240 Other: Voiding Method Toilet # Voids 3 0 - Labs CBC & Chem 7: 01/28/23 06:33 01/28/23 06:33 Labs: Abnormal Lab Results - Last 24 Hours (Table) 01/28/23 01/28/23 01/28/23 Range/Units 06:33 06:33 11:17 RBC 3.83 L (4.40-5.60) X 10*6/uL Hgb 7.6 L (13.0-17.0) d/dL Hct 26.8 L (39.6-50.0) % MCV 70.0 L (80.0-97.0) FL MCH 19.8 L (27.0-32.0) pg MCHC 28.4 L (32.0-37.0) d/dL RDW 21.2 H (11.5-14.5) % Carbon Dioxide 20.4 L (21.6-31.8) mmol/L Anion Gap 14.60 H (4.00-12.00) mmol/L BUN 32.7 H (9.0-27.0) mg/dL Creatinine 1.6 H (0.6-1.5) mg/dL Est GFR (CKD-EPI) 47 L (>=60) BUN/Creatinine Ratio 20.44 H (12.00-20.00) Ratio Glucose 135 H (70-110) mg/dL POC Glucose (mg/dL) 189 H (70-110) mg/dL
[2023-01-29 09:51] LABS: Anisocytosis Slight; Basophils % (A) 1 %; Eosinophils # (A) 0.3 k/uL (0-0.7); Eosinophils % (A) 4 %; HCT 29.8 % (39.0-53.0); HGB 8.4 gm/dL (13.0-17.5); Hypochromasia Marked; Lymphocytes # (A) 1.1 k/uL (1.0-4.8); Lymphocytes % (A) 17 %; MCH 20.8 pg (25.0-35.0); MCHC 28.3 g/dL (31.0-37.0); MCV 73.4 fL (80.0-100.0); Mean Platelet Volume 9.3; Microcytosis Moderate; Monocytes # (A) 0.5 k/uL (0-1.0); Monocytes % (A) 8 %; Neutrophils # (A) 4.3 k/uL (1.3-7.7); Neutrophils % (A) 68 %; Platelet Count 186 k/uL (150-450); Poikilocytosis Moderate; RBC 4.06 m/uL (4.30-5.90); RDW 19.8 % (11.5-15.5); WBC 6.3 k/uL (3.8-10.6)
[2023-01-29 09:52] LABS: African American GFR (CKD) 66 (>60 ml/min/1.73 sqM); Anion Gap 16 mmol/L; Blood Urea Nitrogen 28 mg/dL (9-20); Calcium 8.7 mg/dL (8.4-10.2); Carbon Dioxide 19 mmol/L (22-30); Chloride 105 mmol/L (98-107); Non-African American GFR(CKD) 57 (>60 ml/min/1.73 sqM); Sodium 140 mmol/L (137-145)
[2023-01-29 09:55] LABS: Glucose 49 mg/dL (74-99); Potassium 4.9 mmol/L (3.5-5.1)
[2023-01-29 09:56] LABS: Magnesium 1.7 mg/dL (1.6-2.3)
[2023-01-29 10:01] LABS: Glucose,Whole Blood 88 mg/dL (70-110)
[2023-01-29] MEDS: CHOLECALCIFEROL 25 MCG (1000 IU) TABLET PO SCH (10:04)
[2023-01-29] MEDS: CYANOCOBALAMIN 500 MCG TAB PO SCH (10:05)
[2023-01-29] MEDS: DAPAGLIFLOZIN PROPANEDIOL 10 MG TABLET PO SCH (10:05)
[2023-01-29] MEDS: FUROSEMIDE 20 MG TAB PO SCH (10:06)
[2023-01-29] MEDS: INSULIN DETEMIR (LEVEMIR) 100 UNIT/ML SYR SQ SCH (10:06)
[2023-01-29] MEDS: MAGNESIUM OXIDE 400 MG TAB PO SCH (10:08)
[2023-01-29] MEDS: METOPROLOL SUCCINATE (ER) 25 MG TAB.ER.24H PO SCH (10:08)
[2023-01-29] MEDS: MULTIVITAMINS, THERA 1 EACH TAB PO SCH (10:08)
[2023-01-29] MEDS: NICOTINE 21MG/24HR PATCH TRANSDERM SCH (10:16)
[2023-01-29] MEDS: DORZOLAMIDE HCL 2% DROPS 10 ML BTL BOTH EYES SCH ×3 (10:26→20:10)
[2023-01-29 11:13] LABS: Glucose,Whole Blood 91 mg/dL (70-110)
[2023-01-29] MEDS ORDERED: PHENYLEPHRINE 10 MG/ML 5 ML VIAL ONE (12:29)
[2023-01-29] MEDS ORDERED: LIDOCAINE 1% INJ 10MG/ML (20 ML MDV) ONE (12:29)
[2023-01-29] MEDS ORDERED: PROPOFOL 10 MG/ML 20 ML VIAL IV ONE (12:29)
[2023-01-29] MEDS ORDERED: IV FLUID CONTINUATION 1,000 ML IV ONE ×2 (12:34)
--- NOTE | 2023-01-29 12:55 | P.PCN ---
Date of Procedure: 01/29/23 Procedure(s) Performed: Brief history: Patient is a pleasant 67-year-old white male in the hospital with severe symptomatic anemia and hemoglobin of 6.5 g/dL requiring 1 unit of PRBC transfusion. Has been on aspirin and Plavix which has been on hold. He is scheduled for an elective upper endoscopy as well as colonoscopy today. Procedure performed: Esophagogastroduodenoscopy with biopsy and cautery Colonoscopy with Endo Clip placement Preoperative diagnosis: Severe symptomatic microcytic hypochromic anemia. Anesthesia: MAC Procedure: After informed consent was obtained from the patient was brought into the endoscopy unit and IV sedation was administered by anesthesia under continuous monitoring. Initially upper endoscopy was done. The Olympus GF 160 video endoscope was inserted inserted into the mouth and esophagus intubated without any difficulty and was gradually advanced into the stomach and duodenum and carefully examined. The bulb and second part of the duodenum appeared normal. biopsies were done from the duodenum to evaluate for celiac disease. The scope was then withdrawn into the stomach adequately insufflated with air and upon careful examination the antrum appeared normal. In the gastric body there was an isolated angiectasia identified which was not bleeding and this was cauterized using a gold probe. Rest of the body, cardia and fundus appeared normal. The scope was then withdrawn into the esophagus. The GE junction was located at 40 cm to the incisors. It appeared regular with no erythema erosions or ulcerations. Rest of the esophagus appeared normal. Patient tolerated the procedure well. At this time the patient continued to remain sedation. Initial digital rectal examination was normal. Olympus CF 160 video colonoscope was then inserted into the rectum and gradually advanced to the cecum without any difficulty. Careful examination was performed as the scope was gradually being withdrawn. The prep was excellent. The cecum, had a 5 mm angiectasia with active oozing, status post Endo Clip placement with good hemostasis. Mucosa of the ascending colon, transverse colon, descending colon, sigmoid colon and rectum appeared normal. Scattered sigmoid diverticulosis. Retroflexion was performed in the rectum and no lesions were noted. Patient tolerated the procedure well. Impression: 1. Upper endoscopy revealed 5 mm isolated gastric angiectasia is post cautery using a gold probe 2. Colonoscopy revealed actively oozing 5 mm cecal AVM status post Endo Clip placement with good hemostasis and scattered sigmoid diverticulosis Recommendations: Findings of this examination were discussed with the patient . He was advised to follow with the biopsy results. He'll be started on regular diet. Aspirin and plavix can be resumed tomorrow
--- NOTE | 2023-01-29 12:58 | P.PN ---
Subjective Progress Note Date: 01/29/23 Hospital Course: Patient is a 67-year-old male with history of CAD status post CABG, peripheral arterial disease, hypertension, diabetes, dyslipidemia, COPD presenting with generalized weakness. In the ED, temperature was 98.3, pulse 89, respiratory rate 20, blood pressure 105/59, saturating at 99% on room air. WBC 7.1, hemoglobin 7.3, MCV 69.2, platelet 166, INR 1.3, sodium 135, bicarb 20, BUN 37, creatinine 1.35, glucose 171, magnesium 0.9, troponin 0.03, proBNP 4300. EKG independently interpreted shows sinus rhythm with right bundle branch block, and first-degree AV block, and frequent PVCs. CT abdomen and pelvis shows generalized anasarca, mild to moderate abdominal pelvic ascites, small to moderate bilateral pleural effusions, possible acute kidney injury, circumferential bladder wall thickening, left-sided colonic diverticulosis. Patient being admitted for generalized anasarca as well as microcytic anemia, generalized weakness. GI and cardiology consulted. Her history is consistent with iron deficiency anemia. Hemoglobin further dropped. Requiring 1 unit of PRBCs. Also in acute on chronic CHF exacerbation, was on IV Lasix, switched to oral. Echocardiogram showed moderate to severely impaired left systolic function, likely 35-40%, mild to moderate mitral and mild tricuspid regurgitation, mild pulmonary hypertension. Liver ultrasound showed hepatomegaly without overt cirrhotic appearance. Patient pending colonoscopy and EGD. Subjective: Patient seen and examined at bedside. This morning he was hypoglycemic, symptomatic. Currently nothing by mouth, briefly patient was on D5 normal saline. Claims an a lot better, breathing is a lot better. Pertinent positives and negatives as discussed above, a complete review of systems was performed and all other systems are negative. Vitals Signs Reviewed. General: nontoxic, no distress, appears at stated age, chronically ill-appearing Derm: warm, dry Head: atraumatic, normocephalic, symmetric Eyes: EOMI, no lid lag, anicteric sclera, pupils equal round reactive to light, right sub-conjunctival hemorrhage ENT: Nose and ears atraumatic Neck: No thyromegaly, supple Mouth: no lip lesion, mucus membranes moist Cardiovascular: S1S2 reg, no murmur, trace peripheral edema Lungs: Bibasilar rales, no wheeze, no accessory muscle use Abdominal: soft, diffuse tenderness to palpation, no guarding, no appreciable organomegaly Ext: no gross muscle atrophy, muscle strength muscle strength 5 out of 5 in all 4 extremities, no contractures Neuro: CN II-XII grossly intact Psych: Alert, oriented, appropriate affect Data Reviewed Today: Pertinent Labs: Hemoglobin 8.4, creatinine 1.29, blood sugar ranged between 49- 91 Imaging: No new imaging. Assessment and Plan: Acute iron deficiency anemia status post 1 unit of PRBCs Generalized anasarca Systolic heart failure exacerbation acute on chronic Severe Hypomagnesemia, resolved Acute on chronic kidney injury, resolving Insulin-dependent diabetes Episode of hypoglycemia, while patient was nothing by mouth -GI following, pending colonoscopy and EGD today -Closely monitor CBC, currently hemoglobin is stable and improving -Cardiology note reviewed, statin change to atorvastatin 80 mg, continue aspirin, hold Plavix, restart when cleared by GI, started on farxiga, follow-up with his servomechanism designer in 1-2 weeks -On Lasix 20 mg daily -Monitor BMP and magnesium -Likely has hepatic congestion from systolic heart failure -Continue to monitor urine output, I's and O's -Continue home insulin 24 units and sliding scale insulin before meals and at bedtime, hold rest of the oral and injectable antidiabetics Chronic: CAD status post CABG Peripheral arterial disease Hypertension Dyslipidemia COPD, not in exacerbation DVT ppx: SCDs Code status: Full code Anticipated discharge place: Home Anticipated discharge time: Likely tomorrow Objective - Vital Signs Vital signs: Vital Signs Temp 98.1 F 01/29/23 07:14 Pulse 96 01/29/23 07:14 Resp 16 01/29/23 07:14 BP 122/71 01/29/23 07:14 Pulse Ox 98 01/29/23 07:14 FiO2 Intake & Output 01/28/23 01/29/23 01/29/23 18:59 06:59 18:59 Intake Total 240 Balance 240 Weight 96.5 kg Intake: Oral 240 Other: Voiding Method Toilet # Voids 3 0 - Labs CBC & Chem 7: 01/29/23 07:01 01/29/23 07:01 Labs: Abnormal Lab Results - Last 24 Hours (Table) 01/29/23 01/29/23 Range/Units 07:01 07:01 RBC 4.06 L (4.30-5.90) m/uL Hgb 8.4 L (13.0-17.5) gm/dL Hct 29.8 L (39.0-53.0) % MCV 73.4 L (80.0-100.0) fL MCH 20.8 L (25.0-35.0) pg MCHC 28.3 L (31.0-37.0) g/dL RDW 19.8 H (11.5-15.5) % Carbon Dioxide 19 L (22-30) mmol/L BUN 28 H (9-20) mg/dL Creatinine 1.29 H (0.66-1.25) mg/dL Glucose 49 L* (74-99) mg/dL
[2023-01-29 13:15] LABS: Glucose,Whole Blood 144 mg/dL (70-110)
[2023-01-29] MEDS ORDERED: DEXTROSE 5%-0.9% NACL 1,000 ML IV SCH (15:00)
[2023-01-29 16:38] LABS: Glucose,Whole Blood 271 mg/dL (70-110)
[2023-01-29 19:34] LABS: Glucose,Whole Blood 365 mg/dL (70-110)
[2023-01-29] MEDS: ATORVASTATIN 80 MG TAB PO SCH (20:10)
[2023-01-29] MEDS: ASPIRIN 81 MG PO SCH (20:10)
[2023-01-29] MEDS: VIT A,C & E-LUTEIN-MINERALS 1 EACH TAB PO SCH (20:11)
[2023-01-29] MEDS: guaiFENesin-DM 100-10MG/5ML 10 ML CUP PO PRN (21:34)
[2023-01-30 05:54] LABS: Glucose,Whole Blood 173 mg/dL (70-110)
[2023-01-30] MEDS: INSULIN ASPART (NovoLOG) 100 UNIT/ML VIAL SQ SCH ×2 (06:22→12:14)
[2023-01-30 08:14] LABS: Anisocytosis Moderate; Basophils % (A) 0 %; Eosinophils # (A) 0.2 k/uL (0-0.7); Eosinophils % (A) 3 %; HCT 27.3 % (39.0-53.0); HGB 7.7 gm/dL (13.0-17.5); Hypochromasia Marked; Lymphocytes # (A) 1.2 k/uL (1.0-4.8); Lymphocytes % (A) 19 %; MCH 20.5 pg (25.0-35.0); MCHC 28.2 g/dL (31.0-37.0); MCV 72.6 fL (80.0-100.0); Mean Platelet Volume 9.1; Microcytosis Marked; Monocytes # (A) 0.6 k/uL (0-1.0); Monocytes % (A) 9 %; Neutrophils # (A) 4.2 k/uL (1.3-7.7); Neutrophils % (A) 66 %; Platelet Count 176 k/uL (150-450); Poikilocytosis Moderate; RBC 3.77 m/uL (4.30-5.90); WBC 6.4 k/uL (3.8-10.6)
[2023-01-30 08:35] LABS: African American GFR (CKD) 61 (>60 ml/min/1.73 sqM); Anion Gap 13 mmol/L; Blood Urea Nitrogen 26 mg/dL (9-20); Calcium 8.7 mg/dL (8.4-10.2); Carbon Dioxide 21 mmol/L (22-30); Chloride 106 mmol/L (98-107); Glucose 122 mg/dL (74-99); Non-African American GFR(CKD) 53 (>60 ml/min/1.73 sqM); Potassium 4.4 mmol/L (3.5-5.1); Sodium 140 mmol/L (137-145)
[2023-01-30] MEDS: IPRATROPIUM 0.5 MG/2.5 ML NEBU INHALATION SCH ×2 (08:53→11:32)
[2023-01-30] MEDS: SYMBICORT 80-4.5 MCG INHALER INHALATION SCH (08:53)
[2023-01-30 09:26] VITALS: BP 121/75; PULSE 103; RESP 17; TEMP 97.6
[2023-01-30] MEDS: MAGNESIUM OXIDE 400 MG TAB PO SCH (09:40)
[2023-01-30] MEDS: CYANOCOBALAMIN 500 MCG TAB PO SCH (09:40)
[2023-01-30] MEDS: MULTIVITAMINS, THERA 1 EACH TAB PO SCH (09:40)
[2023-01-30] MEDS: FUROSEMIDE 20 MG TAB PO SCH (09:41)
[2023-01-30] MEDS: NICOTINE 21MG/24HR PATCH TRANSDERM SCH (09:41)
[2023-01-30] MEDS: METOPROLOL SUCCINATE (ER) 25 MG TAB.ER.24H PO SCH (09:41)
[2023-01-30] MEDS: PANTOPRAZOLE 40 MG TABLET PO SCH (09:41)
[2023-01-30] MEDS: INSULIN DETEMIR (LEVEMIR) 100 UNIT/ML SYR SQ SCH (09:41)
[2023-01-30] MEDS: CHOLECALCIFEROL 25 MCG (1000 IU) TABLET PO SCH (09:41)
[2023-01-30] MEDS: DAPAGLIFLOZIN PROPANEDIOL 10 MG TABLET PO SCH (09:41)
[2023-01-30] MEDS: DORZOLAMIDE HCL 2% DROPS 10 ML BTL BOTH EYES SCH (09:48)
--- NOTE | 2023-01-30 11:20 | P.DS ---
Providers Date of admission: 01/26/23 17:12 Expected date of discharge: 01/30/23 Attending physician: Tomy Sheffield MD Consults: 01/26/23 18:17 Consult Physician Routine Consulting Provider: Missy Sanchez Consult Reason/Comments: Microcytic anemia Do you want consulting provider notified?: Yes 01/26/23 18:18 Consult Physician Routine Consulting Provider: James Godoy Consult Reason/Comments: hx of CAD, CABG, HFrEF, in exacerbation Do you want consulting provider notified?: Yes Primary care physician: Salvador Mtz Hospital Course: Discharge Diagnosis: Acute exacerbation on of chronic systolic congestive heart failure, ejection fraction 35% Acute blood loss anemia on top of iron deficiency anemia Gastric angiectasia and Bleeding 5 mm cecal AVM treated with cautery and Endo Clip in respectively Hypomagnesemia Acute kidney injury on chronic kidney disease stage III Diabetes mellitus type 2, insulin requiring Hypoglycemia secondary to nothing by mouth status, resolved Coronary artery disease status post post coronary artery bypass grafting Peripheral arterial disease Hypertension Dyslipidemia COPD without exacerbation Hospital Course: Patient is a 67-year-old male for history of coronary artery disease, peripheral arterial disease, hypertension, diabetes for dyslipidemia, and COPD who presented to the ER with generalized weakness. In the ER he underwent an extensive evaluation. His initial vital signs were within normal limits. Initial laboratory analysis was remarkable for hemoglobin 7.3, INR 1.3, bicarb 20, creatinine 1.35, glucose 171, magnesium 0.9, and BNP of 4300. CT abdomen and pelvis demonstrated generalized anasarca with pelvic ascites and moderate bilateral pleural effusions. Patient was subsequently admitted for acute exacerbation of congestive heart failure. He was started on IV Lasix. GI and cardiology were consulted. He was found to hav anemia and subsequently required 1 unit of packed red blood cells. Testing revealed iron deficiency anemia. He underwent EGD and colonoscopy which revealed gastric angiectasia is on of bleeding 5 mm cecal AVM which were treated with cautery and Endo Clipping. He tolerated a diet. If no additional GI bleeding. His hemoglobin remained relatively stable with consideration for laboratory variants. He was cleared by cardiology and GI. He was asking to go home as he felt so improved, he was determined stable for discharge. Follow-up: Patient should see Dr. Mtz in 1-2 days, Dr. Sarkar his sales and marketing coordinator in 1 week. Medication changes have included Lasix being increased to 20 mg oral twice daily, Aldactone 12.5 mg daily, slow release iron one capsule daily. His magnesium was low and he was recommended to increase his magnesium supplement to twice daily at home. Patient should ideally be considered for Jardiance, He agress to discuss this with his outpatient sales and marketing coordinator at his next visit. I've asked him to check his weight daily and to call if he gains more than 3 pounds in one day or 5 pounds in 3 days, created daily blood pressure log. CBC and basic metabolic profile in 5 days. Imaging: Liver ultrasound: Hepatomegaly without cirrhotic appearance, small amount of perihepatic ascites, supple right renal cyst Chest x-ray: Cardiomegaly, pulmonary vascular congestion with bilateral pleural effusions CT Abdomen and pelvis: Correlate her third space and fluid overload with generalized anasarca, small to moderate bilateral pleural effusions, moderate abdominal pelvic ascites, circumferential bladder wall thickening, left-sided colonic diverticulosis without diverticulitis Echocardiogram: Left ventricular ejection fraction 35-40%, inferior and inferior septal severe hypokinesis, moderate concentric LVH Physical Exam Patient seen and examined at bedside. Feeling well. Lower extremity edema is much improved, no shortness of breath. Has not had a bowel movement since his colonoscopy. Feels well and wants to go home. Vital signs reviewed and stable. General: nontoxic, no distress, appears at stated age Eyes: Conjunctival hemorrhage left eye Cardiovascular: S1S2 reg, no murmur, positive posterior tibial pulse bilateral, Lungs: CTA bilateral, no rhonchi, no rales , no accessory muscle use Abdominal: soft, nontender to palpation, no guarding, no appreciable organomegaly Ext: no gross muscle atrophy, 2+ edema b/l lower extremities, no contractures Neuro: CN II-XI grossly intact, no focal neuro deficits Psych: Alert, oriented, appropriate affect A total of 45 minutes of time were spent preparing this complex discharge summary. Patient was discharged on 01/30/23. This dictation was prepared using [employer] voice recognition software. Though every attempt is made to correct errors during dictation some may still exist. Plan - Discharge Summary Discharge Rx Participant: No New Discharge Prescriptions: New Spironolactone [Aldactone] 12.5 mg PO DAILY #30 tablet Ferrous Sulfate [Slow Release Iron] 142 mg PO DAILY #30 tab Continue Nitroglycerin 0.4 mg SL Q5M PRN PRN Reason: Chest Pain Cholecalciferol [Vitamin D3 (25 Mcg = 1000 Iu)] 50 mcg PO DAILY metFORMIN HCL 1,000 mg PO BID Omeprazole 20 mg PO BID Cyanocobalamin (Vitamin B-12) [Vitamin B-12] 2,500 mcg PO DAILY Insulin Glargine,Hum.rec.anlog [Lantus Solostar Pen] 24 units SQ DAILY lisinopriL 2.5 mg PO HS Aspirin 81 mg PO HS Metoprolol Tartrate 25 mg PO DAILY Vit C/E/Zn/Coppr/Lutein/Zeaxan [Preservision Areds 2 Softgel] 1 cap PO BID Clopidogrel [Plavix] 75 mg PO DAILY Dorzolamide 2% [Trusopt 2%] 1 drop BOTH EYES BID Fluticasone/Umeclidin/Vilanter [Trelegy Ellipta 100-62.5-25] 1 puff INHALATION RT-DAILY Multivit/Iron Sulf/Folic Acid [Multivitamin with Iron] 1 tab PO DAILY Pravastatin Sodium [Pravachol] 80 mg PO HS Changed Magnesium Oxide [Mag-Ox] 400 mg PO BID #0 Furosemide [Lasix] 20 mg PO BID #60 tab Discharge Medication List Aspirin 81 mg PO HS 01/24/21 [History] Cholecalciferol [Vitamin D3 (25 Mcg = 1000 Iu)] 50 mcg PO DAILY 01/24/21 [History] Metoprolol Tartrate 25 mg PO DAILY 01/24/21 [History] Nitroglycerin 0.4 mg SL Q5M PRN 01/24/21 [History] Omeprazole 20 mg PO BID 01/24/21 [History] Vit C/E/Zn/Coppr/Lutein/Zeaxan [Preservision Areds 2 Softgel] 1 cap PO BID 01/24/21 [History] metFORMIN HCL 1,000 mg PO BID 01/24/21 [History] Clopidogrel [Plavix] 75 mg PO DAILY 01/28/21 [History] Cyanocobalamin (Vitamin B-12) [Vitamin B-12] 2,500 mcg PO DAILY 01/26/23 [History] Dorzolamide 2% [Trusopt 2%] 1 drop BOTH EYES BID 01/26/23 [History] Fluticasone/Umeclidin/Vilanter [Trelegy Ellipta 100-62.5-25] 1 puff INHALATION RT-DAILY 01/26/23 [History] Insulin Glargine,Hum.rec.anlog [Lantus Solostar Pen] 24 units SQ DAILY 01/26/23 [History] Multivit/Iron Sulf/Folic Acid [Multivitamin with Iron] 1 tab PO DAILY 01/26/23 [History] Pravastatin Sodium [Pravachol] 80 mg PO HS 01/26/23 [History] lisinopriL 2.5 mg PO HS 01/26/23 [History] Ferrous Sulfate [Slow Release Iron] 142 mg PO DAILY #30 tab 01/30/23 [Rx] Furosemide [Lasix] 20 mg PO BID #60 tab 01/30/23 [Rx] Magnesium Oxide [Mag-Ox] 400 mg PO BID #0 01/30/23 [Rx] Spironolactone [Aldactone] 12.5 mg PO DAILY #30 tablet 01/30/23 [Rx] Follow up Appointment(s)/Referral(s): Jorge Sarkar DO [REFERRING] - 1 Week (Office closed at time of discharge. Please call for follow-up appointment.) Isidoro Li PAC [Family Provider] - 1-2 days (Office closed at time of discharge. Please call for follow-up appointment.) Ambulatory/Diagnostic Orders: Basic Metabolic Panel [LAB.AMB] Time Frame: 5 Days, Location: None Selected Complete Blood Count w/diff [LAB.AMB] Time Frame: 5 Days, Location: None Ciara cted Activity/Diet/Wound Care/Special Instructions: Activity: tolerated Diet: Heart Healthy Wound Care: Please speak with Dr. Sarkar about Jardiance to see if this is an appropriate meidcation for your Repeat Blood work in 5 days (CBC and BMP) Take your weight daily if you gain more then 3 pounds in a day or 5 pounds in 3 days then please call Dr. Sarkar office Take your blood pressure daily and make a log for Dr. Sarkar
[2023-01-30] MEDS: MAGNESIUM SULFATE-D5W PMX 1 GM in DEXTROSE/WATER 1 100ML.BAG IVPB SCH ×2 (11:26→12:40)
[2023-01-30 11:46] LABS: Glucose,Whole Blood 332 mg/dL (70-110)
== END 2023-01-30 14:12 | disposition home or self-care (01) | DRG 377 ==
LOC: EC 13:45 → 4SSUR 17:12
PROVIDERS: ADMIT Student in an Organized Health Care Education/Training Program; ATTEND Student in an Organized Health Care Education/Training Program
PROC: 30233N1 Transfusion of Nonautologous Red Blood Cells into Peripheral Vein, Percutaneous Approach (ICD-10-PCS; 2023-01-27)
PROC: 0W3P8ZZ Control Bleeding in Gastrointestinal Tract, Via Natural or Artificial Opening Endoscopic (ICD-10-PCS; principal; 2023-01-29 15:45)
PROC: 0D5H8ZZ Destruction of Cecum, Via Natural or Artificial Opening Endoscopic (ICD-10-PCS; 2023-01-29 15:45)
PROC: 0DJ08ZZ Inspection of Upper Intestinal Tract, Via Natural or Artificial Opening Endoscopic (ICD-10-PCS; 2023-01-29 15:45)
DX: K55.21 Angiodysplasia of colon with hemorrhage (principal); I50.23 Acute on chronic systolic (congestive) heart failure; D62 Acute posthemorrhagic anemia; I50.22 Chronic systolic (congestive) heart failure; E87.1 Hypo-osmolality and hyponatremia; R18.8 Other ascites; I42.9 Cardiomyopathy, unspecified; I13.0 Hypertensive heart and chronic kidney disease with heart failure and stage 1 through stage 4 chronic kidney disease, or unspecified chronic kidney disease; N17.9 Acute kidney failure, unspecified; I11.0 Hypertensive heart disease with heart failure; E11.649 Type 2 diabetes mellitus with hypoglycemia without coma; E11.51 Type 2 diabetes mellitus with diabetic peripheral angiopathy without gangrene; E78.5 Hyperlipidemia, unspecified; E83.42 Hypomagnesemia; E11.22 Type 2 diabetes mellitus with diabetic chronic kidney disease; I25.10 Atherosclerotic heart disease of native coronary artery without angina pectoris; I27.20 Pulmonary hypertension, unspecified; I08.1 Rheumatic disorders of both mitral and tricuspid valves; I44.0 Atrioventricular block, first degree; I45.10 Unspecified right bundle-branch block; K57.30 Diverticulosis of large intestine without perforation or abscess without bleeding; K55.20 Angiodysplasia of colon without hemorrhage; K76.1 Chronic passive congestion of liver; N18.30 Chronic kidney disease, stage 3 unspecified; N28.1 Cyst of kidney, acquired; Z79.4 Long term (current) use of insulin; Z79.02 Long term (current) use of antithrombotics/antiplatelets; Z79.82 Long term (current) use of aspirin; Z79.84 Long term (current) use of oral hypoglycemic drugs; Z79.899 Other long term (current) drug therapy; Z87.891 Personal history of nicotine dependence; Z95.1 Presence of aortocoronary bypass graft; Z95.820 Peripheral vascular angioplasty status with implants and grafts
CPT/HCPCS: 36415; 43239; 43270; 45382; 71046; 74177; 76705; 80048; 80053; 81003; 82272; 82728; 83036; 83540; 83550; 83735; 83880; 84100; 84443; 84466; 84484; 85025; 85045; 85610; 85730; 86850; 86900; 86901; 86920; 93005; 93306; 94640; 96365; 96366; 96375; 99285

== ENCOUNTER 2023-03-19 13:01 | Emergency (ER) | payer MEDICARE ==
--- NOTE | 2023-03-19 14:43 | ED ---
General Adult HPI - General Source: patient, family, RN notes reviewed Mode of arrival: wheelchair Limitations: no limitations <Jorge Aldridge - Last Filed: 03/19/23 14:41> <Jose Beth - Last Filed: 03/19/23 19:36> - General Chief complaint: Recheck/Abnormal Lab/Rx Stated complaint: Weakness Time Seen by Provider: 03/19/23 14:41 - History of Present Illness Initial comments: 67-year-old male presents emergency Department chief complaint of anemia. Patient states that he had blood work ordered by his new short story writer Dr. Wall he received a phone call stating that his hemoglobin is 5. He was admi tted a few weeks ago for similar problems in which she had a colonoscopy they states that he had some areas or bleeding and cauterized them. Patient denies any rectal bleeding no melanotic stools. He states does feel tired and short of breath. (Jorge Aldridge) Patient denies melanotic stool or rectal bleeding. (Jose Beth) - Related Data Home Medications Medication Instructions Recorded Confirmed Aspirin 81 mg PO HS 01/24/21 03/19/23 Cholecalciferol [Vitamin D3 (25 50 mcg PO DAILY 01/24/21 03/19/23 Mcg = 1000 Iu)] Metoprolol Tartrate 25 mg PO DAILY 01/24/21 03/19/23 Nitroglycerin 0.4 mg SL Q5M PRN 01/24/21 03/19/23 Omeprazole 20 mg PO BID 01/24/21 03/19/23 Vit C/E/Zn/Coppr/Lutein/Zeaxan 1 cap PO BID 01/24/21 03/19/23 [Preservision Areds 2 Softgel] metFORMIN HCL 1,000 mg PO BID 01/24/21 03/19/23 Clopidogrel [Plavix] 75 mg PO DAILY 01/28/21 03/19/23 Cyanocobalamin (Vitamin B-12) 2,500 mcg PO DAILY 01/26/23 03/19/23 [Vitamin B-12] Dorzolamide 2% [Trusopt 2%] 1 drop BOTH EYES BID 01/26/23 03/19/23 Fluticasone/Umeclidin/Vilanter 1 puff INHALATION RT-DAILY 01/26/23 03/19/23 [Trelegy Ellipta 100-62.5-25] Insulin Glargine,Hum.rec.anlog 30 units SQ DAILY 01/26/23 03/19/23 [Lantus Solostar Pen] Multivit/Iron Sulf/Folic Acid 1 tab PO DAILY 01/26/23 03/19/23 [Multivitamin with Iron] Pravastatin Sodium [Pravachol] 80 mg PO HS 01/26/23 03/19/23 Bumetanide [BUMEX] 2 mg PO DAILY 03/19/23 03/19/23 Previous Rx's Medication Instructions Recorded Magnesium Oxide [Mag-Ox] 400 mg PO BID #0 01/30/23 Spironolactone [Aldactone] 12.5 mg PO DAILY #30 tablet 01/30/23 lisinopriL 2.5 mg PO HS #30 tab 01/30/23 Allergies Allergy/AdvReac Type Severity Reaction Status Date / Time No Known Allergies Allergy Verified 03/19/23 19:19 Review of Systems ROS Other: All systems not noted in ROS Statement are negative. <Jorge Aldridge - Last Filed: 03/19/23 14:41> ROS Other: All systems not noted in ROS Statement are negative. <Jose Beth - Last Filed: 03/19/23 19:36> ROS Statement: Those systems with pertinent positive or pertinent negative responses have been documented in the HPI. Past Medical History Past Medical History: Diabetes Mellitus, GERD/Reflux, Hyperlipidemia, Hypertension, Osteoarthritis (OA), Vascular Disorder Additional Past Medical History / Comment(s): "Back of heart , no treatment needed right now." "Having trouble with walking long distances right now, will use wheelchair if too far." History of Any Multi-Drug Resistant Organisms: None Reported Past Surgical History: Cholecystectomy Additional Past Surgical History / Comment(s): Procedures on right leg for vascular disorder, 2 stents placed, bilateral cataracts removed. Past Anesthesia/Blood Transfusion Reactions: No Reported Reaction Past Psychological History: No Psychological Hx Reported Smoking Status: Former smoker Past Alcohol Use History: None Reported Past Drug Use History: None Reported - Past Family History Mother Family Medical History: Cancer Additional Family Medical History / Comment(s): Breast cancer. Father Family Medical History: Cancer Additional Family Medical History / Comment(s): Prostate cancer. <Jorge Aldridge - Last Filed: 03/19/23 14:41> General Exam Limitations: no limitations <Jorge Aldridge - Last Filed: 03/19/23 14:41> General appearance: alert, in no apparent distress Head exam: Present: atraumatic, normocephalic Eye exam: Present: normal appearance, PERRL Neck exam: Present: normal inspection Respiratory exam: Present: normal lung sounds bilaterally. Absent: respiratory distress, wheezes Cardiovascular Exam: Present: regular rate, normal rhythm GI/Abdominal exam: Present: soft. Absent: distended, tenderness, guarding Extremities exam: Present: pedal edema Neurological exam: Present: alert, oriented X3, CN II-XII intact. Absent: motor sensory deficit Psychiatric exam: Present: normal affect, normal mood Skin exam: Present: warm, dry, pallor <Jose Beth - Last Filed: 03/19/23 19:36> - General Exam Comments Initial Comments: Visual Physical Exam Vital signs reviewed General: Well-appearing, nontoxic, no acute distress. Head: Normocephalic, atraumatic Eyes: PERRLA, EOMI ENT: Airway patent Chest: Nonlabored breathing Skin: No visual rash, normal skin tone Neuro: Alert and oriented 3 Musculoskeletal: No gross abnormalities (Jorge Aldridge) Course Vital Signs 03/19/23 03/19/23 03/19/23 13:24 18:02 18:27 Temperature 97.9 F 97.3 F L 97.3 F L Pulse Rate 86 91 90 Respiratory 16 18 18 Rate Blood Pressure 110/69 118/51 119/68 O2 Sat by Pulse 99 100 100 Oximetry 03/19/23 18:47 Temperature 97.8 F Pulse Rate 92 Respiratory 18 Rate Blood Pressure 133/73 O2 Sat by Pulse 100 Oximetry Medical Decision Making <Jorge Aldridge - Last Filed: 03/19/23 14:41> - Lab Data Result diagrams: 03/19/23 15:22 03/19/23 15:22 <Jose Beth - Last Filed: 03/19/23 19:36> - Medical Decision Making I completed the quick note portion of this chart signed Jorge Aldridge PA-C (Jorge Aldridge) Was pt. sent in by a medical professional or institution (Dr., PA, VIDEO PRODUCER, urgent care, hospital, or detention...) When possible be specific @ -No Did you speak to anyone other than the patient for history (EMS, parent, family, police, friend...)? What history was obtained from this source @ -No Did you review nursing and triage notes (agree or disagree)? Why? @ -I reviewed and agree with nursing and triage notes Were old charts reviewed (outside hosp., previous admission, EMS record, old EKG, old radiological studies, urgent care reports/EKG's, detention records)? Report findings @ -No old charts were reviewed Differential Diagnosis (chest pain, altered mental status, abdominal pain women, abdominal pain men, vaginal bleeding, weakness, fever, dyspnea, syncope, headache, dizziness, GI bleed, back pain, seizure, CVA, palpatations, mental health, musculoskeletal)? @ -not applicable EKG interpreted by me (3pts min.). @ -[Sinus rhythm with PVC rate of 92, SD interval 203, QRS duration 154, QTC 464, right bundle-branch block, no ST segment elevation. X-rays interpreted by me (1pt min.). @ -None done CT interpreted by me (1pt min.). @ -None done U/S interpreted by me (1pt. min.). @ -None done What testing was considered but not performed or refused? (CT, X-rays, U/S, labs)? Why? @ -None What meds were considered but not given or refused? Why? @ -None Did you discuss the management of the patient with other professionals (professionals i.e. SUZY Uribe, VIDEO PRODUCER, lab, RT, psych nurse, delinquency prevention social worker, science editor, teacher, commissary officer, case finisher)? Give summary @ -No Was smoking cessation discussed for >3mins.? @ -No Was critical care preformed (if so, how long)? @ -No Were there social determinants of health that impacted care today? How? (Homelessness, low income, unemployed, alcoholism, drug addiction, transportation, low edu. Level, literacy, decrease access to med. care, care home, rehab)? @ -No Was there de-escalation of care discussed even if they declined (Discuss DNR or withdrawal of care, Hospice)? DNR status @ -No What co-morbidities impacted this encounter? (DM, HTN, Smoking, COPD, CAD, Cancer, CVA, ARF, Chemo, Hep., AIDS, mental health diagnosis, sleep apnea, mor bid obesity)? @ -None Was patient admitted / discharged? Hospital course, mention meds given and route, prescriptions, significant lab abnormalities, going to OR and other pertinent info. @ -[Patient sent from cardiology, anemic. Repeat hemoglobin 6.1. Patient has had anemia over the past month or 2. He denies melena or bright red rectal bleeding. No history of bleeding. Patient also has hypomagnesemia. This is replaced in the emergency department. He is transfused one unit. This institution does not currently have gastroenterology and he did have recent EGD and colonoscopy. I did offer transfer for gastro-enterology evaluation patient prefers discharge with return parameters. He will monitor his stool closely. He will follow with his primary care regarding repeat hemoglobin early next week. He is given strict return parameters including weakness, shortness of breath, dark stools or rectal bleeding. Undiagnosed new problem with uncertain prognosis? @ -No Drug Therapy requiring intensive monitoring for toxicity (Heparin, Nitro, Insulin, Cardizem)? @ -No Were any procedures done? @ -No Diagnosis/symptom? @ -Anemia Acute, or Chronic, or Acute on Chronic? @ -Chronic Uncomplicated (without systemic symptoms) or Complicated (systemic symptoms)? @ -default Side effects of treatment? @ -No Exacerbation, Progression, or Severe Exacerbation? @ -No] Poses a threat to life or bodily function? How? (Chest pain, USA, AR, pneumonia, PE, COPD, DKA, ARF, appy, cholecystitis, CVA, Diverticulitis, Homicidal, Suicidal, threat to staff... and all critical care pts) @ Moderate Risk, anemia (Jose Beth) - Lab Data Lab Results 03/19/23 03/19/23 03/19/23 Range/Units 15:22 15:22 15:22 WBC 6.0 (3.8-10.6) k/uL RBC 2.85 L (4.30-5.90) m/uL Hgb 6.1 L* D (13.0-17.5) gm/dL Hct 21.9 L (39.0-53.0) % MCV 76.7 L (80.0-100.0) fL MCH 21.3 L (25.0-35.0) pg MCHC 27.8 L (31.0-37.0) g/dL RDW 20.7 H (11.5-15.5) % Plt Count 144 L (150-450) k/uL MPV 9.6 Neutrophils % 66 % Lymphocytes % 20 % Monocytes % 6 % Eosinophils % 3 % Basophils % 1 % Neutrophils # 3.9 (1.3-7.7) k/uL Lymphocytes # 1.2 (1.0-4.8) k/uL Monocytes # 0.4 (0-1.0) k/uL Eosinophils # 0.2 (0-0.7) k/uL Basophils # 0.1 (0-0.2) k/uL Hypochromasia Marked Poikilocytosis Slight Anisocytosis Moderate Microcytosis Moderate PT 12.2 (10.0-12.5) sec INR 1.1 (<1.2) APTT 26.3 (22.0-30.0) sec Sodium 137 (137-145) mmol/L Potassium 5.8 H (3.5-5.1) mmol/L Chloride 100 (98-107) mmol/L Carbon Dioxide 22 (22-30) mmol/L Anion Gap 15 mmol/L BUN 51 H (9-20) mg/dL Creatinine 1.44 H (0.66-1.25) mg/dL Est GFR (CKD-EPI)AfAm 57 (>60 ml/min/1.73 sqM) Est GFR (CKD-EPI)NonAf 50 (>60 ml/min/1.73 sqM) Glucose 160 H (74-99) mg/dL Calcium 9.0 (8.4-10.2) mg/dL Magnesium 1.3 L (1.6-2.3) mg/dL Total Bilirubin 1.0 (0.2-1.3) mg/dL AST 81 H (17-59) U/L ALT 17 (4-49) U/L Alkaline Phosphatase 79 (38-126) U/L Total Protein 7.9 (6.3-8.2) g/dL Albumin 4.4 (3.5-5.0) g/dL Blood Type Blood Type Recheck Bld Type Recheck Status Antibody Screen Crossmatch Spec Expiration Date 03/19/23 Range/Units 15:45 WBC (3.8-10.6) k/uL RBC (4.30-5.90) m/uL Hgb (13.0-17.5) gm/dL Hct (39.0-53.0) % MCV (80.0-100.0) fL MCH (25.0-35.0) pg MCHC (31.0-37.0) g/dL RDW (11.5-15.5) % Plt Count (150-450) k/uL MPV Neutrophils % % Lymphocytes % % Monocytes % % Eosinophils % % Basophils % % Neutrophils # (1.3-7.7) k/uL Lymphocytes # (1.0-4.8) k/uL Monocytes # (0-1.0) k/uL Eosinophils # (0-0.7) k/uL Basophils # (0-0.2) k/uL Hypochromasia Poikilocytosis Anisocytosis Microcytosis PT (10.0-12.5) sec INR (<1.2) APTT (22.0-30.0) sec Sodium (137-145) mmol/L Potassium (3.5-5.1) mmol/L Chloride (98-107) mmol/L Carbon Dioxide (22-30) mmol/L Anion Gap mmol/L BUN (9-20) mg/dL Creatinine (0.66-1.25) mg/dL Est GFR (CKD-EPI)AfAm (>60 ml/min/1.73 sqM) Est GFR (CKD-EPI)NonAf (>60 ml/min/1.73 sqM) Glucose (74-99) mg/dL Calcium (8.4-10.2) mg/dL Magnesium (1.6-2.3) mg/dL Total Bilirubin (0.2-1.3) mg/dL AST (17-59) U/L ALT (4-49) U/L Alkaline Phosphatase (38-126) U/L Total Protein (6.3-8.2) g/dL Albumin (3.5-5.0) g/dL Blood Type A Positive Blood Type Recheck A Pos Bld Type Recheck Status No Antibody Screen NEGATIVE Crossmatch See Detail Spec Expiration Date 03/22/2023 - 3206 Disposition <Jorge Aldridge - Last Filed: 03/19/23 14:41> Is patient prescribed a controlled substance at d/c from ED?: No Time of Disposition: 20:20 <Jose Beth - Last Filed: 03/19/23 19:36> Clinical Impression: Symptomatic anemia, Microcytic anemia Disposition: HOME SELF-CARE Condition: Fair Instructions (If sedation given, give patient instructions): Anemia (ED) Additional Instructions: Please return to the emergency department with any worsening or changing symptoms. Please follow with her primary care provider for repeat blood draw. Referrals: Salvador Mtz MD [Primary Care Provider] - 1-2 days
[2023-03-19 16:27] LABS: Anisocytosis Moderate; Basophils # (A) 0.1 k/uL (0-0.2); Basophils % (A) 1 %; Eosinophils # (A) 0.2 k/uL (0-0.7); Eosinophils % (A) 3 %; HCT 21.9 % (39.0-53.0); Hypochromasia Marked; Lymphocytes # (A) 1.2 k/uL (1.0-4.8); Lymphocytes % (A) 20 %; MCH 21.3 pg (25.0-35.0); MCHC 27.8 g/dL (31.0-37.0); MCV 76.7 fL (80.0-100.0); Mean Platelet Volume 9.6; Microcytosis Moderate; Monocytes # (A) 0.4 k/uL (0-1.0); Monocytes % (A) 6 %; Neutrophils # (A) 3.9 k/uL (1.3-7.7); Neutrophils % (A) 66 %; Platelet Count 144 k/uL (150-450); Poikilocytosis Slight; RBC 2.85 m/uL (4.30-5.90); RDW 20.7 % (11.5-15.5)
[2023-03-19 16:38] LABS: ALT 17 U/L (4-49); AST 81 U/L (17-59); African American GFR (CKD) 57 (>60 ml/min/1.73 sqM); Albumin 4.4 g/dL (3.5-5.0); Alkaline Phosphatase 79 U/L (38-126); Anion Gap 15 mmol/L; Blood Urea Nitrogen 51 mg/dL (9-20); Carbon Dioxide 22 mmol/L (22-30); Chloride 100 mmol/L (98-107); Glucose 160 mg/dL (74-99); Magnesium 1.3 mg/dL (1.6-2.3); Non-African American GFR(CKD) 50 (>60 ml/min/1.73 sqM); Sodium 137 mmol/L (137-145); Total Protein 7.9 g/dL (6.3-8.2)
[2023-03-19 16:39] LABS: HGB 6.1 gm/dL (13.0-17.5)
[2023-03-19 16:50] LABS: Potassium 5.8 mmol/L (3.5-5.1)
[2023-03-19 16:51] LABS: INR 1.1 (<1.2); Partial Thromboplastin Time 26.3 sec (22.0-30.0); Prothrombin Time 12.2 sec (10.0-12.5)
[2023-03-19 18:09] VITALS: RESP 18
[2023-03-19] MEDS: MAGNESIUM SULFATE-D5W PMX 1 GM in DEXTROSE/WATER 1 100ML.BAG IVPB SCH ×2 (18:35→19:51)
[2023-03-19 21:06] VITALS: BP 131/68; PULSE 96; TEMP 98.8
== END 2023-03-19 21:00 | disposition home or self-care (01) ==
LOC: EC 13:01
DX: D50.9 Iron deficiency anemia, unspecified (principal); E11.9 Type 2 diabetes mellitus without complications; K21.9 Gastro-esophageal reflux disease without esophagitis; E78.5 Hyperlipidemia, unspecified; I10 Essential (primary) hypertension; M19.90 Unspecified osteoarthritis, unspecified site; Z87.891 Personal history of nicotine dependence; Z79.4 Long term (current) use of insulin; Z79.84 Long term (current) use of oral hypoglycemic drugs; Z79.82 Long term (current) use of aspirin; Z79.51 Long term (current) use of inhaled steroids; Z79.899 Other long term (current) drug therapy
CPT/HCPCS: 36415; 93005; 86900; 86901; 80053; 83735; 85025; 85610; 85730; 86850; 86920; 99285; 96365; 36430; P9016; J3475

== ENCOUNTER 2023-03-25 12:00 | Emergency (ER) | payer MEDICARE ==
--- NOTE | 2023-03-25 15:08 | ED ---
General Adult HPI - General Source: patient Mode of arrival: ambulatory Limitations: no limitations <Mateo Alvarez - Last Filed: 03/25/23 15:09> <Viri Brra - Last Filed: 04/15/23 12:23> - General Chief complaint: Recheck/Abnormal Lab/Rx Stated complaint: blood levels low - History of Present Illness Initial comments: 67-year-old male presenting to the ED with a chief complaint of abnormal labs. Patient notes was here previously secondary to anemia. States her the past few days has been feeling generalized weakness and fatigue. Had his hemoglobin rechecked and was advised to present to the ED secondary to it being low. (Mateo Alvarez) - Related Data Home Medications Medication Instructions Recorded Confirmed Cholecalciferol [Vitamin D3 (25 50 mcg PO DAILY 01/24/21 04/08/23 Mcg = 1000 Iu)] Metoprolol Tartrate 25 mg PO DAILY 01/24/21 04/08/23 Nitroglycerin 0.4 mg SL Q5M PRN 01/24/21 04/08/23 Omeprazole 20 mg PO BID 01/24/21 04/08/23 Vit C/E/Zn/Coppr/Lutein/Zeaxan 1 cap PO BID 01/24/21 04/08/23 [Preservision Areds 2 Softgel] metFORMIN HCL 1,000 mg PO BID 01/24/21 04/08/23 Cyanocobalamin (Vitamin B-12) 2,500 mcg PO DAILY 01/26/23 04/08/23 [Vitamin B-12] Dorzolamide 2% [Trusopt 2%] 1 drop BOTH EYES BID 01/26/23 04/08/23 Fluticasone/Umeclidin/Vilanter 1 puff INHALATION RT-DAILY 01/26/23 04/08/23 [Trelegy Ellipta 100-62.5-25] Insulin Glargine,Hum.rec.anlog 24 units SQ DAILY 01/26/23 04/08/23 [Lantus Solostar Pen] Multivit/Iron Sulf/Folic Acid 1 tab PO DAILY 01/26/23 04/08/23 [Multivitamin with Iron] Pravastatin Sodium [Pravachol] 80 mg PO HS 01/26/23 04/08/23 Bumetanide [BUMEX] 2 mg PO DAILY 03/19/23 04/08/23 Magnesium Oxide [Mag-Ox] 400 mg PO DAILY 04/08/23 04/08/23 Previous Rx's Medication Instructions Recorded lisinopriL 2.5 mg PO HS #30 tab 01/30/23 Allergies Allergy/AdvReac Type Severity Reaction Status Date / Time No Known Allergies Allergy Verified 04/08/23 11:26 Review of Systems ROS Other: All systems not noted in ROS Statement are negative. <Mateo Alvarez - Last Filed: 03/25/23 15:09> ROS Other: All systems not noted in ROS Statement are negative. <Viri Brar - Last Filed: 04/15/23 12:23> ROS Statement: Those systems with pertinent positive or pertinent negative responses have been documented in the HPI. Past Medical History Past Medical History: Diabetes Mellitus, GERD/Reflux, Hyperlipidemia, Hypertension, Osteoarthritis (OA), Vascular Disorder Additional Past Medical History / Comment(s): "Back of heart , no treatment needed right now." "Having trouble with walking long distances right now, will use wheelchair if too far." History of Any Multi-Drug Resistant Organisms: None Reported Past Surgical History: Cholecystectomy Additional Past Surgical History / Comment(s): Procedures on right leg for vascular disorder, 2 stents placed, bilateral cataracts removed. Past Anesthesia/Blood Transfusion Reactions: No Reported Reaction Past Psychological History: No Psychological Hx Reported Smoking Status: Former smoker Past Alcohol Use History: None Reported Past Drug Use History: None Reported - Past Family History Mother Family Medical History: Cancer Additional Family Medical History / Comment(s): Breast cancer. Father Family Medical History: Cancer Additional Family Medical History / Comment(s): Prostate cancer. <Mateo Alvarez - Last Filed: 03/25/23 15:09> General Exam Limitations: no limitations <Mateo Alvarez - Last Filed: 03/25/23 15:09> - General Exam Comments Initial Comments: Visual Physical Exam Vital signs reviewed General: Well-appearing, nontoxic, no acute distress. Head: Normocephalic, atraumatic Eyes: PERRLA, EOMI ENT: Airway patent Chest: Nonlabored breathing Skin: No visual rash, normal skin tone Neuro: Alert and oriented 3 Musculoskeletal: No gross abnormalities (Mateo Alvarez) Course Vital Signs 03/25/23 03/25/23 03/25/23 14:10 18:25 18:40 Temperature 97.9 F 97.8 F Pulse Rate 87 84 87 Respiratory 22 18 18 Rate Blood Pressure 107/62 109/45 110/49 O2 Sat by Pulse 100 98 Oximetry 03/25/23 03/25/23 03/25/23 18:52 19:12 22:00 Temperature 98.1 F 97.6 F 97.6 F Pulse Rate 88 18 L 90 Respiratory 18 18 18 Rate Blood Pressure 106/48 118/53 125/59 O2 Sat by Pulse 100 100 Oximetry 03/25/23 03/25/23 03/25/23 23:20 23:30 23:50 Temperature 97.7 F 97.6 F 97.7 F Pulse Rate 95 98 93 Respiratory 18 18 18 Rate Blood Pressure 124/59 126/56 112/71 O2 Sat by Pulse 100 100 Oximetry 03/26/23 03:33 Temperature 97.9 F Pulse Rate 92 Respiratory 18 Rate Blood Pressure 133/61 O2 Sat by Pulse 98 Oximetry Medical Decision Making <Mateo Alvarez - Last Filed: 03/25/23 15:09> - Lab Data Result diagrams: 03/25/23 15:38 03/25/23 15:38 <Viri Brar - Last Filed: 04/15/23 12:23> - Medical Decision Making Quicknote portion performed. Signed Mateo Alvarez PA-C (Mateo Alvarez) Was pt. sent in by a medical professional or institution (Dr. PA, BUGGYMAN, urgent care, hospital, or intermediate...) When possible be specific @ -Yes Did you speak to anyone other than the patient for history (EMS, parent, family, police, friend...)? What history was obtained from this source @ - at bedside Did you review nursing and triage notes (agree or disagree)? Why? @ -I reviewed and agree with nursing and triage notes Were old charts reviewed (outside hosp., previous admission, EMS record, old EKG, old radiological studies, urgent care reports/EKG's, intermediate records)? Report findings @ -No old charts were reviewed Differential Diagnosis (chest pain, altered mental status, abdominal pain women, abdominal pain men, vaginal bleeding, weakness, fever, dyspnea, syncope, headache, dizziness, GI bleed, back pain, seizure, CVA, palpatations, mental health)? @ -Anemia, GI bleed, bone marrow failure, lab error EKG interpreted by me (3pts min.). @ -As above X-rays interpreted by me (1pt min.). @ -None done CT interpreted by me (1pt min.). @ -None done U/S interpreted by me (1pt. min.). @ -None done What testing was considered but not performed or refused? (CT, X-rays, U/S, labs)? Why? @ -None What meds were considered but not given or refused? Why? @ -Additional blood Did you discuss the management of the patient with other professionals (miguel angel akhtar i.e. , PA, BUGGYMAN, lab, RT, psych nurse, social worker health services, laundry washer, teacher, airplane first officer, caser)? Give summary @ -No Was smoking cessation discussed for >3mins.? @ -No Was critical care preformed (if so, how long)? @ -Yes, blood transfusion for acute recurrent anemia Were there social determinants of health that impacted care today? How? (Homelessness, low income, unemployed, alcoholism, drug addiction, transportation, low edu. Level, literacy, decrease access to med. care, prison, r ehab)? @ -No Was there de-escalation of care discussed even if they declined (Discuss DNR or withdrawal of care, Hospice)? DNR status @ -No What co-morbidities impacted this encounter? (DM, HTN, Smoking, COPD, CAD, Cancer, CVA, ARF, Chemo, Hep., AIDS, mental health diagnosis, sleep apnea, morbid obesity)? @ -None Was patient admitted / discharged? Hospital course, mention meds given and route, prescriptions, significant lab abnormalities, going to OR and other pertinent info. @ -Left AMA The patient has decided to leave against medical advice because he has spent a significant amount of time in the hospital recently and does not want to be admitted The patient has adequate capacity to make medical decisions. The patient refuses hospital admission and wants to be discharged. The risks have been explained to the patient, including worsening illness, chronic pain, permanent disability and, heart attack . The benefits of workup/admission have also been explained, including the av ailability and proximity of nurses, physicians, monitoring, diagnostic testing, treatment and additional transfusion as needed The patient was able to understand and state the risks and benefits of hospital admission. This was witnessed by nurse The patient the opportunity to ask questions about their medical condition. The patient was treated to the extent that they would allow and knows that they may return for care at any time. Undiagnosed new problem with uncertain prognosis? @ -No Drug Therapy requiring intensive monitoring for toxicity (Heparin, Nitro, Insulin, Cardizem)? @ -No Were any procedures done? @ -No Diagnosis/symptom? @ Recurrent anemia due to GI bleeding Acute, or Chronic, or Acute on Chronic? @ Acute on chronic Uncomplicated (without systemic symptoms) or Complicated (systemic symptoms)? @ Complicated Side effects of treatment? @ -No Exacerbation, Progression, or Severe Exacerbation? @ -No Poses a threat to life or bodily function? How? (Chest pain, [place], [place], pneumonia, PE, COPD, DKA, ARF, appy, cholecystitis, CVA, Diverticulitis, Homicidal, Suicidal, threat to staff... and all critical care pts) @ Yes, he is refusing admission or additional workup, leaving AMA (Viri Brar) - Lab Data Lab Results 03/25/23 03/25/23 03/25/23 Range/Units 15:38 15:38 15:38 WBC 6.7 (3.8-10.6) k/uL RBC 2.63 L (4.30-5.90) m/uL Hgb 4.9 L* (13.0-17.5) gm/dL Hct 19.7 L* (39.0-53.0) % MCV 74.8 L (80.0-100.0) fL MCH 18.6 L (25.0-35.0) pg MCHC 24.9 L (31.0-37.0) g/dL RDW 19.9 H (11.5-15.5) % Plt Count 157 (150-450) k/uL MPV 9.4 Neutrophils % (Manual) 80 % Lymphocytes % (Manual) 13 % Monocytes % (Manual) 6 % Eosinophils % (Manual) 1 % Neutrophils # (Manual) 5.36 (1.3-7.7) k/uL Lymphocytes # (Manual) 0.87 L (1.0-4.8) k/uL Monocytes # (Manual) 0.40 (0-1.0) k/uL Eosinophils # (Manual) 0.07 (0-0.7) k/uL Nucleated RBCs 0 (0-0) /100 WBC Manual Slide Review Performed Polychromasia Present Hypochromasia Marked Hypochromasia (manual) Pres Poikilocytosis Moderate Anisocytosis Slight Anisocytosis (manual) Present Microcytosis Moderate Target Cells Present Tear Drop Cells Present Sodium 135 L (137-145) mmol/L Potassium 4.5 (3.5-5.1) mmol/L Chloride 98 (98-107) mmol/L Carbon Dioxide 20 L (22-30) mmol/L Anion Gap 17 mmol/L BUN 71 H (9-20) mg/dL Creatinine 1.87 H (0.66-1.25) mg/dL Est GFR (CKD-EPI)AfAm 42 (>60 ml/min/1.73 sqM) Est GFR (CKD-EPI)NonAf 36 (>60 ml/min/1.73 sqM) Glucose 122 H (74-99) mg/dL Calcium 9.0 (8.4-10.2) mg/dL Magnesium (1.6-2.3) mg/dL Total Bilirubin 0.7 (0.2-1.3) mg/dL AST 34 (17-59) U/L ALT 17 (4-49) U/L Alkaline Phosphatase 94 (38-126) U/L Total Protein 7.5 (6.3-8.2) g/dL Albumin 4.2 (3.5-5.0) g/dL Urine Color Colorless Urine Appearance Turbid (Clear) Urine pH 6.5 (5.0-8.0) Ur Specific [place] 1.009 (1.001-1.035) Urine Protein Negative (Negative) Urine Glucose (UA) Negative (Negative) Urine Ketones Negative (Negative) Urine Blood Negative (Negative) Urine Nitrite Negative (Negative) Urine Bilirubin Negative (Negative) Urine Urobilinogen <2.0 (<2.0) mg/dL Ur Leukocyte Esterase Negative (Negative) Stool Occult Blood (Negative) Blood Type Blood Type Recheck Bld Type Recheck Status Antibody Screen Crossmatch Spec Expiration Date 1203/25/23 03/25/23 Range/Units 15:38 15:38 21:49 WBC (3.8-10.6) k/uL RBC (4.30-5.90) m/uL Hgb (13.0-17.5) gm/dL Hct (39.0-53.0) % MCV (80.0-100.0) fL MCH (25.0-35.0) pg MCHC (31.0-37.0) g/dL RDW (11.5-15.5) % Plt Count (150-450) k/uL MPV Neutrophils % (Manual) % Lymphocytes % (Manual) % Monocytes % (Manual) % Eosinophils % (Manual) % Neutrophils # (Manual) (1.3-7.7) k/uL Lymphocytes # (Manual) (1.0-4.8) k/uL Monocytes # (Manual) (0-1.0) k/uL Eosinophils # (Manual) (0-0.7) k/uL Nucleated RBCs (0-0) /100 WBC Manual Slide Review Polychromasia Hypochromasia Hypochromasia (manual) Poikilocytosis Anisocytosis Anisocytosis (manual) Microcytosis Target Cells Tear Drop Cells Sodium (137-145) mmol/L Potassium (3.5-5.1) mmol/L Chloride (98-107) mmol/L Carbon Dioxide (22-30) mmol/L Anion Gap mmol/L BUN (9-20) mg/dL Creatinine (0.66-1.25) mg/dL Est GFR (CKD-EPI)AfAm (>60 ml/min/1.73 sqM) Est GFR (CKD-EPI)NonAf (>60 ml/min/1.73 sqM) Glucose (74-99) mg/dL Calcium (8.4-10.2) mg/dL Magnesium 1.6 (1.6-2.3) mg/dL Total Bilirubin (0.2-1.3) mg/dL AST (17-59) U/L ALT (4-49) U/L Alkaline Phosphatase (38-126) U/L Total Protein (6.3-8.2) g/dL Albumin (3.5-5.0) g/dL Urine Color Urine Appearance (Clear) Urine pH (5.0-8.0) Ur Specific [place] (1.001-1.035) Urine Protein (Negative) Urine Glucose (UA) (Negative) Urine Ketones (Negative) Urine Blood (Negative) Urine Nitrite (Negative) Urine Bilirubin (Negative) Urine Urobilinogen (<2.0) mg/dL Ur Leukocyte Esterase (Negative) Stool Occult Blood Positive (Negative) Blood Type A Positive Blood Type Recheck A Pos Bld Type Recheck Status No Antibody Screen NEGATIVE Crossmatch See Detail Spec Expiration Date 03/28/20232337 Disposition <Mateo Alvarez - Last Filed: 03/25/23 15:09> Is patient prescribed a controlled substance at d/c from ED?: No <Viri Brar - Last Filed: 04/15/23 12:23> Clinical Impression: Anemia, Lower GI bleed Disposition: LEFT AGAINST MEDICAL ADVICE Condition: Serious Referrals: Salvador Mtz MD [REFERRING] - 1-2 days Missy Sanchez MD [STAFF PHYSICIAN] - 1-2 days
[2023-03-25 16:08] LABS: Anisocytosis Slight; Hypochromasia Marked; MCH 18.6 pg (25.0-35.0); MCHC 24.9 g/dL (31.0-37.0); MCV 74.8 fL (80.0-100.0); Mean Platelet Volume 9.4; Microcytosis Moderate; Platelet Count 157 k/uL (150-450); Poikilocytosis Moderate; RBC 2.63 m/uL (4.30-5.90); RDW 19.9 % (11.5-15.5); WBC 6.7 k/uL (3.8-10.6)
[2023-03-25 16:25] LABS: ALT 17 U/L (4-49); AST 34 U/L (17-59); African American GFR (CKD) 42 (>60 ml/min/1.73 sqM); Albumin 4.2 g/dL (3.5-5.0); Alkaline Phosphatase 94 U/L (38-126); Anion Gap 17 mmol/L; Blood Urea Nitrogen 71 mg/dL (9-20); Carbon Dioxide 20 mmol/L (22-30); Chloride 98 mmol/L (98-107); Glucose 122 mg/dL (74-99); Non-African American GFR(CKD) 36 (>60 ml/min/1.73 sqM); Potassium 4.5 mmol/L (3.5-5.1); Sodium 135 mmol/L (137-145); Total Bilirubin 0.7 mg/dL (0.2-1.3); Total Protein 7.5 g/dL (6.3-8.2)
[2023-03-25 16:27] LABS: HCT 19.7 % (39.0-53.0)
[2023-03-25 16:31] LABS: HGB 4.9 gm/dL (13.0-17.5)
[2023-03-25 16:53] LABS: Anisocytosis (M) Present; Eosinophils # (M) 0.07 k/uL (0-0.7); Lymphocytes # (M) 0.87 k/uL (1.0-4.8); Neutrophils # (M) 5.36 k/uL (1.3-7.7); Neutrophils % (M) 80 %; Nucleated Red Blood Cells 0 /100 WBC (0-0); Total Cells Counted 100
[2023-03-25 16:54] LABS: Hypochromasia (M) Pres; Target Cells Present; Tear Drop Cells Present
[2023-03-25 16:55] LABS: Polychromasia Present
[2023-03-25 18:48] VITALS: RESP 18
[2023-03-25 20:10] LABS: Appearance,Urine Turbid (Clear); Bilirubin,Urine Negative (Negative); Blood,Urine Negative (Negative); Color,Urine Colorless; Glucose,Urine (UA) Negative (Negative); Ketones,Urine Negative (Negative); Leukocyte Esterase,Urine Negative (Negative); Nitrite,Urine Negative (Negative); PH, Urine 6.5 (5.0-8.0); Protein,Urine Negative (Negative); Specific Gravity,Urine 1.009 (1.001-1.035); Urobilinogen,Urine <2.0 mg/dL (<2.0)
[2023-03-26 03:49] VITALS: BP 133/61; PULSE 92; TEMP 97.9
== END 2023-03-26 03:58 | disposition left against medical advice (07) ==
LOC: EC 12:00
DX: D64.9 Anemia, unspecified (principal); K92.2 Gastrointestinal hemorrhage, unspecified; E11.9 Type 2 diabetes mellitus without complications; K21.9 Gastro-esophageal reflux disease without esophagitis; E78.5 Hyperlipidemia, unspecified; M19.90 Unspecified osteoarthritis, unspecified site; I10 Essential (primary) hypertension; Z87.891 Personal history of nicotine dependence; Z79.899 Other long term (current) drug therapy; Z79.4 Long term (current) use of insulin; Z79.84 Long term (current) use of oral hypoglycemic drugs; Z79.1 Long term (current) use of non-steroidal anti-inflammatories (NSAID); Z53.29 Procedure and treatment not carried out because of patient's decision for other reasons
CPT/HCPCS: 36415; 86900; 86901; 80053; 83735; 85025; 86850; 86920; 82272; 81001; 99283; 36430; P9016

== ENCOUNTER 2023-04-08 09:38 | Emergency (ER) | payer MEDICARE ==
--- NOTE | 2023-04-08 09:47 | ED ---
General Adult HPI - General Source: patient, RN notes reviewed Mode of arrival: ambulatory Limitations: no limitations <Jorge Aldridge - Last Filed: 04/08/23 09:45> <Billy Montez - Last Filed: 04/08/23 11:36> - General Stated complaint: Abnormal Labs Time Seen by Provider: 04/08/23 09:46 - History of Present Illness Initial comments: 67-year-old male presents emergency Department chief complaint of anemia. Patient states she's been having issues with anemia states that he saw Isidoro VIRGEN yesterday had laboratory studies and found have a hemoglobin 6.6 his hemoglobins roughly been seen stable he states he follow-up with his surgeon I did his recent scope and found small area of bleeding and states that he does not need a scope this time because his hemoglobin is stable he did advise him go to receive another transfusion. He states he is on iron supplement. (Jorge Aldridge) This is a 67-year-old male who presents emergency Department because he was told to come in because hemoglobin was 6.6. Patient states his been that way for the last week or so and is not rising so they wanted him to come in and get a unit of blood. Patient states he has had no more fatigued or shortness of breath and he has recently has been stable. Patient states he had a colonoscopy and endoscopy and according to him they fixed the problem when they did the colonoscopy. Patient also states he was on a blood thinner and then remove the blood thinners since. Patient states he has felt at his baseline for the last week or 2. Patient denies any recent fever chills per patient denies any abdominal pain patient denies any nausea vomiting or diarrhea. (Billy Montez) - Related Data Home Medications Medication Instructions Recorded Confirmed Cholecalciferol [Vitamin D3 (25 50 mcg PO DAILY 01/24/21 04/08/23 Mcg = 1000 Iu)] Metoprolol Tartrate 25 mg PO DAILY 01/24/21 04/08/23 Nitroglycerin 0.4 mg SL Q5M PRN 01/24/21 04/08/23 Omeprazole 20 mg PO BID 01/24/21 04/08/23 Vit C/E/Zn/Coppr/Lutein/Zeaxan 1 cap PO BID 01/24/21 04/08/23 [Preservision Areds 2 Softgel] metFORMIN HCL 1,000 mg PO BID 01/24/21 04/08/23 Cyanocobalamin (Vitamin B-12) 2,500 mcg PO DAILY 01/26/23 04/08/23 [Vitamin B-12] Dorzolamide 2% [Trusopt 2%] 1 drop BOTH EYES BID 01/26/23 04/08/23 Fluticasone/Umeclidin/Vilanter 1 puff INHALATION RT-DAILY 01/26/23 04/08/23 [Trelegy Ellipta 100-62.5-25] Insulin Glargine,Hum.rec.anlog 24 units SQ DAILY 01/26/23 04/08/23 [Lantus Solostar Pen] Multivit/Iron Sulf/Folic Acid 1 tab PO DAILY 01/26/23 04/08/23 [Multivitamin with Iron] Pravastatin Sodium [Pravachol] 80 mg PO HS 01/26/23 04/08/23 Bumetanide [BUMEX] 2 mg PO DAILY 03/19/23 04/08/23 Magnesium Oxide [Mag-Ox] 400 mg PO DAILY 04/08/23 04/08/23 Previous Rx's Medication Instructions Recorded lisinopriL 2.5 mg PO HS #30 tab 01/30/23 Allergies Allergy/AdvReac Type Severity Reaction Status Date / Time No Known Allergies Allergy Verified 04/08/23 11:26 Review of Systems ROS Other: All systems not noted in ROS Statement are negative. <Jorge Aldridge - Last Filed: 04/08/23 09:45> ROS Other: All systems not noted in ROS Statement are negative. <Billy Montez - Last Filed: 04/08/23 11:36> ROS Statement: Those systems with pertinent positive or pertinent negative responses have been documented in the HPI. Past Medical History Past Medical History: Diabetes Mellitus, GERD/Reflux, Hyperlipidemia, Hy pertension, Osteoarthritis (OA), Vascular Disorder Additional Past Medical History / Comment(s): "Back of heart , no treatment needed right now." "Having trouble with walking long distances right now, will use wheelchair if too far." History of Any Multi-Drug Resistant Organisms: None Reported Past Surgical History: Cholecystectomy Additional Past Surgical History / Comment(s): Procedures on right leg for vascular disorder, 2 stents placed, bilateral cataracts removed. Past Anesthesia/Blood Transfusion Reactions: No Reported Reaction Past Psychological History: No Psychological Hx Reported Smoking Status: Former smoker Past Alcohol Use History: None Reported Past Drug Use History: None Reported - Past Family History Mother Family Medical History: Cancer Additional Family Medical History / Comment(s): Breast cancer. Father Family Medical History: Cancer Additional Family Medical History / Comment(s): Prostate cancer. <Jorge Aldridge - Last Filed: 04/08/23 09:45> General Exam <Jorge Aldridge - Last Filed: 04/08/23 09:45> <Billy Montez - Last Filed: 04/08/23 11:36> - General Exam Comments Initial Comments: Visual Physical Exam Vital signs reviewed General: Well-appearing, nontoxic, no acute distress. Head: Normocephalic, atraumatic Eyes: PERRLA, EOMI ENT: Airway patent Chest: Nonlabored breathing Skin: No visual rash, normal skin tone Neuro: Alert and oriented 3 Musculoskeletal: No gross abnormalities (Jorge Aldridge) GENERAL: Patient is well-developed and well-nourished. Patient is nontoxic and well- hydrated and is in no acute distress. ENT: Neck is soft and supple. No significant lymphadenopathy is noted. Oropharynx is clear. Moist mucous membranes. Neck has full range of motion without eliciting any pain. EYES: The sclera were anicteric and conjunctiva were pink and moist. Extraocular movements were intact and pupils were equal round and reactive to light. Eyelids were unremarkable. PULMONARY: Unlabored respirations. Good breath sounds bilaterally. No audible rales rhonchi or wheezing was noted. CARDIOVASCULAR: There is a regular rate and rhythm without any murmurs gallops or rubs. ABDOMEN: Soft and nontender with normal bowel sounds. SKIN: Skin is clear with no lesions or rashes and otherwise unremarkable. NEUROLOGIC: Patient is alert and oriented x3. Cranial nerves II through XII are grossly intact. Motor and sensory are also intact. Normal speech, volume and content. Symmetrical smile. MUSCULOSKELETAL: Normal extremities with adequate strength and full range of motion. No lower extremity swelling or edema. No calf tenderness. LYMPHATICS: No significant lymphadenopathy is noted PSYCHIATRIC: Normal psychiatric evaluation. (Billy Montez) Course Vital Signs 01/11/24 09:46 Temperature 98.7 F Pulse Rate 96 Respiratory 18 Rate Blood Pressure 119/62 O2 Sat by Pulse 100 Oximetry Medical Decision Making <Jorge Aldridge - Last Filed: 04/08/23 09:45> - Lab Data Result diagrams: 04/08/23 10:16 04/08/23 10:16 <Billy Montez - Last Filed: 04/08/23 11:36> - Medical Decision Making I completed the quick note portion of this chart signed Jorge Aldridge PA-C (Jorge Aldridge) EKG is interpreted by myself. EKG shows a sinus rhythm with a first-degree AV block at 90 bpm OR interval is 219 QRS is under 66 QT interval 490 QTC is 457. Patient also has an occasional PVC is no significant ST segment elevation noted. Patient also has a right bundle branch block. Was pt. sent in by a medical professional or institution ([facility]ribe, CASTING OPERATOR HELPER, urgent care, hospital, or senior living...) When possible be specific @ -Primary medical care doctor Did you speak to anyone other than the patient for history (EMS, parent, family, police, friend...)? What history was obtained from this source @ -No Did you review nursing and triage notes (agree or disagree)? Why? @ -I reviewed and agree with nursing and triage notes Were old charts reviewed (outside hosp., previous admission, EMS record, old EKG, old radiological studies, urgent care reports/EKG's, senior living records)? Report findings @ -I reviewed prior charts in prior laboratory on this patient Differential Diagnosis (chest pain, altered mental status, abdominal pain women, abdominal pain men, vaginal bleeding, weakness, fever, dyspnea, syncope, headache, dizziness, GI bleed, back pain, seizure, CVA, palpatations, mental health, musculoskeletal)? @ -not applicable EKG interpreted by me (3pts min.). @ -As above X-rays interpreted by me (1pt min.). @ -None done CT interpreted by me (1pt min.). @ -None done U/S interpreted by me (1pt. min.). @ -None done What testing was considered but not performed or refused? (CT, X-rays, U/S, labs)? Why? @ -None What meds were considered but not given or refused? Why? @ -None Did you discuss the management of the patient with other professionals (professionals i.e. Dr., PA, CASTING OPERATOR HELPER, lab, RT, psych nurse, director of social work, a auxiliary, teacher, science and operations officer, telephonic nurse case manager)? Give summary @ -No Was smoking cessation discussed for >3mins.? @ -No Was critical care preformed (if so, how long)? @ -No Were there social determinants of health that impacted care today? How? (Homelessness, low income, unemployed, alcoholism, drug addiction, transportation, low edu. Level, literacy, decrease access to med. care, [facility], rehab)? @ -No Was there de-escalation of care discussed even if they declined (Discuss DNR or withdrawal of care, Hospice)? DNR status @ -No What co-morbidities impacted this encounter? (DM, HTN, Smoking, COPD, CAD, Cancer, CVA, ARF, Chemo, Hep., AIDS, mental health diagnosis, sleep apnea, morbid obesity)? @ -None Was patient admitted / discharged? Hospital course, mention meds given and route, prescriptions, significant lab abnormalities, going to OR and other pertinent info. @ -Patient's hemoglobin came back 7.2. I went back into the room and spoke with the patient and he stated he had no new symptoms and the fact that the hemoglobin was going up and is not below 7 he was fine not getting any blood at this time and will follow-up with his primary medical care doctor. Undiagnosed new problem with uncertain prognosis? @ -No Drug Therapy requiring intensive monitoring for toxicity (Heparin, Nitro, In sulin, Cardizem)? @ -No Were any procedures done? @ -No Diagnosis/symptom? @ -Anemia Acute, or Chronic, or Acute on Chronic? @ -Chronic Uncomplicated (without systemic symptoms) or Complicated (systemic symptoms)? @ -Complicated Side effects of treatment? @ -No Exacerbation, Progression, or Severe Exacerbation? @ -No Poses a threat to life or bodily function? How? (Chest pain, [place], [place], pneumonia, PE, COPD, DKA, ARF, appy, cholecystitis, CVA, Diverticulitis, Homicidal, Suicidal, threat to staff... and all critical care pts) @ -No (Billy Montez) - Lab Data Lab Results 01/11/24 01/11/24 01/11/24 Range/Units 10:16 10:16 10:16 WBC 7.5 (3.8-10.6) k/uL RBC 3.10 L (4.30-5.90) m/uL Hgb 7.2 L D (13.0-17.5) gm/dL Hct 24.2 L (39.0-53.0) % MCV 78.0 L (80.0-100.0) fL MCH 23.1 L (25.0-35.0) pg MCHC 29.6 L (31.0-37.0) g/dL RDW 21.7 H (11.5-15.5) % Plt Count 253 (150-450) k/uL MPV 9.1 Neutrophils % 63 % Lymphocytes % 19 % Monocytes % 9 % Eosinophils % 4 % Basophils % 1 % Neutrophils # 4.8 (1.3-7.7) k/uL Lymphocytes # 1.4 (1.0-4.8) k/uL Monocytes # 0.7 (0-1.0) k/uL Eosinophils # 0.3 (0-0.7) k/uL Basophils # 0.1 (0-0.2) k/uL Hypochromasia Marked Poikilocytosis Moderate Anisocytosis Moderate Microcytosis Moderate PT 11.5 (10.0-12.5) sec INR 1.1 (<1.2) APTT 23.1 (22.0-30.0) sec Sodium 136 L (137-145) mmol/L Potassium 4.6 (3.5-5.1) mmol/L Chloride 100 (98-107) mmol/L Carbon Dioxide 22 (22-30) mmol/L Anion Gap 14 mmol/L BUN 44 H (9-20) mg/dL Creatinine 1.41 H (0.66-1.25) mg/dL Est GFR (CKD-EPI)AfAm 59 (>60 ml/min/1.73 sqM) Est GFR (CKD-EPI)NonAf 51 (>60 ml/min/1.73 sqM) Glucose 123 H (74-99) mg/dL Calcium 8.9 (8.4-10.2) mg/dL Total Bilirubin 0.6 (0.2-1.3) mg/dL AST 37 (17-59) U/L ALT 18 (4-49) U/L Alkaline Phosphatase 105 (38-126) U/L Total Protein 7.5 (6.3-8.2) g/dL Albumin 4.1 (3.5-5.0) g/dL Disposition <Jorge Aldridge - Last Filed: 04/08/23 09:45> Is patient prescribed a controlled substance at d/c from ED?: No Time of Disposition: 11:35 <Billy Montez - Last Filed: 04/08/23 11:36> Clinical Impression: Anemia Disposition: HOME SELF-CARE Instructions (If sedation given, give patient instructions): Anemia (ED) Additional Instructions: Patient should follow-up with primary medical care doctor. Patient should retur n to the emergency department is increased fatigue or shortness of breath or dark black stools or bloody stools Referrals: Bob Tejeda MD [Primary Care Provider] - 1-2 days
[2023-04-08 10:05] VITALS: RESP 18
[2023-04-08 10:50] LABS: Anisocytosis Moderate; Basophils # (A) 0.1 k/uL (0-0.2); Basophils % (A) 1 %; Eosinophils # (A) 0.3 k/uL (0-0.7); Eosinophils % (A) 4 %; HCT 24.2 % (39.0-53.0); Hypochromasia Marked; Lymphocytes # (A) 1.4 k/uL (1.0-4.8); Lymphocytes % (A) 19 %; MCH 23.1 pg (25.0-35.0); MCHC 29.6 g/dL (31.0-37.0); Mean Platelet Volume 9.1; Microcytosis Moderate; Monocytes # (A) 0.7 k/uL (0-1.0); Monocytes % (A) 9 %; Neutrophils # (A) 4.8 k/uL (1.3-7.7); Neutrophils % (A) 63 %; Platelet Count 253 k/uL (150-450); Poikilocytosis Moderate; RDW 21.7 % (11.5-15.5); WBC 7.5 k/uL (3.8-10.6)
[2023-04-08 10:51] LABS: HGB 7.2 gm/dL (13.0-17.5)
[2023-04-08 10:52] LABS: ALT 18 U/L (4-49); AST 37 U/L (17-59); African American GFR (CKD) 59 (>60 ml/min/1.73 sqM); Albumin 4.1 g/dL (3.5-5.0); Alkaline Phosphatase 105 U/L (38-126); Anion Gap 14 mmol/L; Blood Urea Nitrogen 44 mg/dL (9-20); Calcium 8.9 mg/dL (8.4-10.2); Carbon Dioxide 22 mmol/L (22-30); Chloride 100 mmol/L (98-107); Glucose 123 mg/dL (74-99); Non-African American GFR(CKD) 51 (>60 ml/min/1.73 sqM); Potassium 4.6 mmol/L (3.5-5.1); Sodium 136 mmol/L (137-145); Total Bilirubin 0.6 mg/dL (0.2-1.3); Total Protein 7.5 g/dL (6.3-8.2)
[2023-04-08 10:58] LABS: INR 1.1 (<1.2); Partial Thromboplastin Time 23.1 sec (22.0-30.0); Prothrombin Time 11.5 sec (10.0-12.5)
[2023-04-08 12:08] VITALS: BP 125/64; PULSE 87; TEMP 98.8
== END 2023-04-08 11:54 | disposition home or self-care (01) ==
LOC: EC 09:38
DX: D64.9 Anemia, unspecified (principal); I44.0 Atrioventricular block, first degree; I45.10 Unspecified right bundle-branch block; E78.5 Hyperlipidemia, unspecified; I10 Essential (primary) hypertension; K21.9 Gastro-esophageal reflux disease without esophagitis; E11.9 Type 2 diabetes mellitus without complications; Z87.891 Personal history of nicotine dependence; Z79.4 Long term (current) use of insulin; Z79.84 Long term (current) use of oral hypoglycemic drugs; Z79.899 Other long term (current) drug therapy
CPT/HCPCS: 36415; 80053; 85025; 85610; 85730; 86850; 86900; 86901; 93005; 99284